=== PATIENT | female | born 1935 | race Caucasian/White ===

== ENCOUNTER 2017-08-08 04:51 | Inpatient (IN) | payer MEDICARE, OTHER ==
[2017-08-08] MEDS ORDERED: Ketorolac 30 MG/ML SDV IVPUSH ONE (05:16)
[2017-08-08] MEDS ORDERED: Ondansetron 4 MG/2 ML SDV IVPUSH ONE (05:16)
[2017-08-08] MEDS ORDERED: Sodium Chloride 0.9% 10 ML Syringe FLUSH PRN (05:16)
[2017-08-08] MEDS ORDERED: Sodium Chloride 0.9% 2.5 ML Syringe FLUSH PRN (05:16)
[2017-08-08] MEDS ORDERED: Pantoprazole 40 MG Vial IVPUSH ONE (05:17)
--- NOTE | 2017-08-08 05:18 | EDM.PDOC ---
ED HPI GENERAL MEDICAL PROBLEM - General Chief Complaint: Gastrointestinal Problem Stated Complaint: VOMITING, FEVER Time Seen by Provider: 08/08/17 05:01 - History of Present Illness INITIAL COMMENTS - FREE TEXT/NARRATIVE: HISTORY AND PHYSICAL: History of present illness: The patient is an 82-year-old female with a history of asthma CHF hypothyroidism hypertension who uses home O2 and presents with family with complaints of mid abdominal pain and dry heaves that started at 4 PM yesterday. The patient says she has no GI problems but did have an esophageal swallow test performed at our hospital on August 23 of this year due to feeling like food was getting stuck and esophageal spasm. The results of that have been reviewed by me and he comments that there is findings consistent with a diffuse esophageal spasm but parts of the tests were suboptimal. The patient follows with Dr. Alonso at [facility] who ordered this test. Patient says that she doesn't have any GI history at her only abdominal surgery is of repair of a rectal prolapse years ago which has since recurred multiple times and she reduces it herself. The patient tells me with respect to this the only time she has to reduce her rectum is when she has dry heaves or vomiting as it "falls out". The patient says that she has not been vomiting up any material just having dry heaves and she did have a bowel movement yesterday which was small in volume and hard in character. She has taken a few sips of water but has not tolerated anything else. She does not feel like the food or water is getting stuck in her throat or esophagus and she has no chest pain or shortness of breath. The patient arrived to our emergency department without her oxygen and initially had a low O2 sat which came up quickly with oxygen therapy. When I query her about this she says she does not feel short of breath or have any respiratory symptoms. The patient also had a fever at some point last evening of which was treated and she is now afebrile. The family member says the only documented the 1 fever one time. The patient takes chronic pain medications for osteoporosis and scoliosis and did take a pain pill before coming here. She took no other medications for her symptomatology. The patient is very vague about her symptoms and says that the pain is in the midabdomen and is deep and she does feel bloated. The patient tells me that she does have a rotund protuberant small abdomen but she does feel a little more distended than usual. Patient says she does feel gassy. Please note the patient did tell me that with the dry heaving she did have prolapse of her rectum and because she felt poorly she was not spending a lot of time trying to reduce it. She currently does not complain of pain at that area. Review of systems: As per history of present illness and below otherwise all systems reviewed and negative. Past medical history: As per history of present illness and as reviewed below otherwise noncontributory. Surgical history: As per history of present illness and as reviewed below otherwise noncontributory. Social history: No reported history of drug or alcohol abuse. Family history: As per history of present illness and as reviewed below otherwise noncontributory. Physical exam: General: Well-developed well-nourished petite female who is nontoxic and vital signs are reviewed by me. She moves easily in the bed and is cooperative with exam HEENT: Atraumatic, normocephalic, pupils reactive, negative for conjunctival pallor or scleral icterus, mucous membranes moist, throat clear, neck supple, nontender, trachea midline. Lungs: Clear to auscultation but there are diminished breath sounds in the bases and no work of breathing stridor or wheezing is appreciated, breath sounds equal bilaterally, chest nontender. Heart: S1S2, regular, negative for clicks, rubs, or JVD. Abdomen: Soft, abdomen is protuberant, which the patient tells me he is only slightly bigger than her baseline, bowel sounds are hyperactive and there is some tympany on percussion and only mild tenderness to palpation of the entire abdomen. Negative for masses or hepatosplenomegaly. There is no rebound or guarding on my exam. In the right inguinal area there is a small protuberance appreciated which the patient says is not tender and she says she has had a hernia there for many years. Pelvis: Stable nontender. Genitourinary: Deferred. Rectal: On examination a small amount of the rectum is prolapsed from the anus and the mucosal surface is somewhat erythematous but not bleeding or weeping. I' m able to almost completely reduce the rectum without difficulty and the patient tolerated this well. Extremities: Atraumatic, negative for cords or calf pain. Neurovascular unremarkable. Neuro: Awake, alert, oriented. Cranial nerves II through XII unremarkable. Cerebellum unremarkable. Motor and sensory unremarkable throughout. Exam nonfocal. Diagnostics: CBC CMP amylase lipase UA urine culture blood cultures lactic acid chest x-ray CT scan of the abdomen and pelvis Therapeutics: Gentle IV fluids Zofran Protonix Toradol I did discuss the CT scan findings with the patient and again asked her about the right inguinal hernia and she says it has not changed nor is it uncomfortable. The case was discussed with our surgeon Dr. Chapa at 8:17 AM and he will do a formal consult and come and see the patient in the ED. I've also told him about the patient's history of rectal prolapse. I will discuss the case with the hospitalist and plan admission to her 0825: Case was discussed with the hospitalist Dr. Evans and Dr. Chapa is also here seeing the patient. He will also evaluate her rectal prolapse. He does not feel that the inguinal hernia is the cause of the problem and he will place a consult on the chart. We will admit the patient as an inpatient. None of the admitting physicians or consulting physicians evident NG tube is indicated at this time. Impression: Abdominal pain and vomiting, possible small bowel obstruction, history of large hiatal hernia and right inguinal hernia Definitive disposition and diagnosis as appropriate pending reevaluation and review of above. abdominal Pain Score (Numeric/FACES): 10 - Related Data Allergies Allergy/AdvReac Type Severity Reaction Status Date / Time azithromycin Allergy Anaphylactic Verified 12/20/14 12:47 Shock codeine Allergy Other Verified 12/31/14 12:34 Home Meds: Home Meds Aspirin 1 tab PO DAILY 12/03/14 [History] Erythromycin Base [Erythromycin 0.5% Ophth Oint] 1 dose EYEBOTH DAILY 12/03/14 [ History] Hydrocodone/Acetaminophen [Vicodin Es 7.5-300 mg Tablet] 1 tab PO QID PRN [History] Levothyroxine 125 mcg PO DAILY 12/03/14 [History] cycloSPORINE [Restasis] 1 dose EYEBOTH DAILY 12/03/14 [History] Fluticasone/Salmeterol [Advair 250-50 Diskus] 1 puff INH BID 12/31/14 [History] Albuterol [Ventolin HFA] 2 puff INH Q4H 08/08/17 [History] Ascorbic Acid [C-1000] 1,000 mg PO 08/08/17 [History] Calcium Carbonate/Vitamin D3 [Calcium 600 + Vit D Tablet] 1 each PO 08/08/17 [ History] Cyanocobalamin (Vitamin B12) [Vitamin B12] 1,000 mcg PO DAILY 08/08/17 [History] Docusate Sodium 100 mg PO 08/08/17 [History] Fish Oil/Gray-3 Fatty Acids [Fish Oil 1,000 MG] 08/08/17 [History] Glucosamine [Glucosamine Sulfate] 500 mg PO 08/08/17 [History] Hydrochlorothiazide 12.5 mg PO 08/08/17 [History] Multivitamin with Minerals [Multiple Vitamin] 08/08/17 [History] Potassium 08/08/17 [History] Verapamil HCl [Verapamil ER] 08/08/17 [History] Zinc Gluconate [Zinc] 08/08/17 [History] Past Medical History HEENT History: Reports: Impaired Vision Other Cardiovascular History: "fast hear rate" Respiratory History: Reports: Asthma, Other (See Below) Other Respiratory History: use oxygen at home Gastrointestinal History: Reports: None APPRENTICE JOCKEY History: Reports: None Musculoskeletal History: Reports: None Neurological History: Reports: None Psychiatric History: Reports: None Hematologic History: Reports: None Dermatologic History: Reports: None - Past Surgical History Other GI Surgeries/Procedures: Rectum Surgery Other Musculoskeletal Surgeries/Procedures:: Left Social & Family History - Family History Family Medical History: Noncontributory - Tobacco Use Second Hand Smoke Exposure: Yes - Recreational Drug Use Recreational Drug Use: No ED ROS GENERAL - Review of Systems Review Of Systems: ROS reveals no pertinent complaints other than HPI. ED EXAM, GENERAL - Physical Exam Exam: See Below (see dictation) Course - Vital Signs Last Recorded V/S: Last Vital Signs Temp 36.8 C 08/08/17 05:00 Pulse 71 08/08/17 07:31 Resp 18 08/08/17 07:31 BP 159/90 H 08/08/17 07:31 Pulse Ox 97 08/08/17 07:31 - Orders/Labs/Meds Orders: Active Orders 24 hr Category Date Time Status Notify Provider Consults [RC] ASDIRECTED Care 08/08/17 08:19 Active Consult to Physician [CONS] Stat Cons 08/08/17 08:19 Active Abdomen Pelvis w Cont [CT] Stat Exams 08/08/17 05:15 Taken Chest 1V Frontal [CR] Stat Exams 08/08/17 05:16 Taken CULTURE BLOOD [BC] Stat Lab 08/08/17 05:22 Received CULTURE BLOOD [BC] Stat Lab 08/08/17 05:34 Received CULTURE URINE [RM] Stat Lab 08/08/17 06:20 Received UA W/MICROSCOPIC [URIN] Stat Lab 08/08/17 06:20 Ordered Sodium Chloride 0.9% [Normal Saline] 1,000 ml Med 08/08/17 05:30 Active IV ASDIRECTED Sodium Chloride 0.9% [Saline Flush] Med 08/08/17 05:16 Active 10 ml FLUSH ASDIRECTED PRN Sodium Chloride 0.9% [Saline Flush] Med 08/08/17 05:16 Active 2.5 ml FLUSH ASDIRECTED PRN Blood Culture x2 Reflex Set [OM.PC] Stat Oth 08/08/17 05:18 Ordered Saline Lock Insert [OM.PC] Stat Oth 08/08/17 05:15 Ordered Medication Orders Sodium Chloride (Normal Saline) 1,000 mls @ 75 mls/hr IV ASDIRECTED JACI Last Admin: 08/08/17 05:22 Dose: 75 mls/hr Sodium Chloride (Saline Flush) 10 ml FLUSH ASDIRECTED PRN PRN Reason: Keep Vein Open Sodium Chloride (Saline Flush) 2.5 ml FLUSH ASDIRECTED PRN PRN Reason: Keep Vein Open Labs: Laboratory Tests 08/08/17 08/08/17 08/08/17 Range/Units 05:22 05:22 05:22 WBC 7.23 (4.0-11.0) K/uL RBC 4.85 (4.30-5.90) M/uL Hgb 14.3 (12.0-16.0) g/dL Hct 43.4 (36.0-46.0) % MCV 89.5 (80.0-98.0) fL MCH 29.5 (27.0-32.0) pg MCHC 32.9 (31.0-37.0) g/dL RDW Std Deviation 47.9 (28.0-62.0) fl RDW Coeff of Ellie 15 (11.0-15.0) % Plt Count 233 (150-400) K/uL MPV 9.20 (7.40-12.00) fL Neut % (Auto) 81.7 H (48.0-80.0) % Lymph % (Auto) 12.2 L (16.0-40.0) % [place] % (Auto) 5.7 (0.0-15.0) % Eos % (Auto) 0.1 (0.0-7.0) % Baso % (Auto) 0.3 (0.0-1.5) % Neut # (Auto) 5.9 H (1.4-5.7) K/uL Lymph # (Auto) 0.9 (0.6-2.4) K/uL [place] # (Auto) 0.4 (0.0-0.8) K/uL Eos # (Auto) 0.0 (0.0-0.7) K/uL Baso # (Auto) 0.0 (0.0-0.1) K/uL Nucleated RBC % 0.0 /100WBC Nucleated RBCs # 0 K/uL Lactate 1.1 (0.20-2.00) mmol/L Sodium 132 L (136-145) mmol/L Potassium 3.8 (3.5-5.1) mmol/L Chloride 97 L (98-107) mmol/L Carbon Dioxide 27.1 (21.0-32.0) mmol/L BUN 20 H (7.0-18.0) mg/dL Creatinine 0.8 (0.6-1.0) mg/dL Est Cr Clr Drug Dosing 34.16 mL/min Estimated GFR (MDRD) > 60.0 ml/min Glucose 137 H (74-106) mg/dL Calcium 8.9 (8.5-10.1) mg/dL Total Bilirubin 0.5 (0.2-1.0) mg/dL AST 29 (15-37) IU/L ALT 19 (14-63) IU/L Alkaline Phosphatase 104 (46-116) U/L Total Protein 7.9 (6.4-8.2) g/dL Albumin 3.3 L (3.4-5.0) g/dL Globulin 4.6 H (2.0-3.5) g/dL Albumin/Globulin Ratio 0.7 L (1.3-2.8) Amylase 66 (25-115) U/L Lipase 51 L (73-393) U/L Urine Color Urine Appearance Urine pH (5.0-8.0) Ur Specific [place] (1.001-1.035) Urine Protein (NEGATIVE) mg/dL Urine Glucose (UA) (NEGATIVE) mg/dL Urine Ketones (NEGATIVE) mg/dL Urine Occult Blood (NEGATIVE) Urine Nitrite (NEGATIVE) Urine Bilirubin (NEGATIVE) Urine Urobilinogen (<2.0) EU/dL Ur Leukocyte Esterase (NEGATIVE) Urine RBC (0-2/HPF) Urine WBC (0-5/HPF) Ur Epithelial Cells (NONE-FEW) Urine Bacteria (NEGATIVE) 08/08/17 Range/Units 06:20 WBC (4.0-11.0) K/uL RBC (4.30-5.90) M/uL Hgb (12.0-16.0) g/dL Hct (36.0-46.0) % MCV (80.0-98.0) fL MCH (27.0-32.0) pg MCHC (31.0-37.0) g/dL RDW Std Deviation (28.0-62.0) fl RDW Coeff of Ellie (11.0-15.0) % Plt Count (150-400) K/uL MPV (7.40-12.00) fL Neut % (Auto) (48.0-80.0) % Lymph % (Auto) (16.0-40.0) % [place] % (Auto) (0.0-15.0) % Eos % (Auto) (0.0-7.0) % Baso % (Auto) (0.0-1.5) % Neut # (Auto) (1.4-5.7) K/uL Lymph # (Auto) (0.6-2.4) K/uL [place] # (Auto) (0.0-0.8) K/uL Eos # (Auto) (0.0-0.7) K/uL Baso # (Auto) (0.0-0.1) K/uL Nucleated RBC % /100WBC Nucleated RBCs # K/uL Lactate (0.20-2.00) mmol/L Sodium (136-145) mmol/L Potassium (3.5-5.1) mmol/L Chloride (98-107) mmol/L Carbon Dioxide (21.0-32.0) mmol/L BUN (7.0-18.0) mg/dL Creatinine (0.6-1.0) mg/dL Est Cr Clr Drug Dosing mL/min Estimated GFR (MDRD) ml/min Glucose (74-106) mg/dL Calcium (8.5-10.1) mg/dL Total Bilirubin (0.2-1.0) mg/dL AST (15-37) IU/L ALT (14-63) IU/L Alkaline Phosphatase (46-116) U/L Total Protein (6.4-8.2) g/dL Albumin (3.4-5.0) g/dL Globulin (2.0-3.5) g/dL Albumin/Globulin Ratio (1.3-2.8) Amylase (25-115) U/L Lipase (73-393) U/L Urine Color YELLOW Urine Appearance CLEAR Urine pH 6.5 (5.0-8.0) Ur Specific [place] 1.025 (1.001-1.035) Urine Protein 100 (NEGATIVE) mg/dL Urine Glucose (UA) NEGATIVE (NEGATIVE) mg/dL Urine Ketones 40 H (NEGATIVE) mg/dL Urine Occult Blood SMALL H (NEGATIVE) Urine Nitrite NEGATIVE (NEGATIVE) Urine Bilirubin NEGATIVE (NEGATIVE) Urine Urobilinogen 0.2 (<2.0) EU/dL Ur Leukocyte Esterase NEGATIVE (NEGATIVE) Urine RBC 0-2 (0-2/HPF) Urine WBC 0-1 (0-5/HPF) Ur Epithelial Cells RARE (NONE-FEW) Urine Bacteria RARE (NEGATIVE) Meds: Medications Generic Name Dose Route Start Last Admin Trade Name Freq PRN Reason Stop Dose Admin Sodium Chloride 1,000 mls @ 75 mls/hr 08/08/17 05:30 08/08/17 05:22 Normal Saline IV 75 mls/hr ASDIRECTED JACI Administration Sodium Chloride 10 ml 08/08/17 05:16 Saline Flush FLUSH ASDIRECTED PRN Keep Vein Open Sodium Chloride 2.5 ml 08/08/17 05:16 Saline Flush FLUSH ASDIRECTED PRN Keep Vein Open Discontinued Medications Generic Name Dose Route Start Last Admin Trade Name Freq PRN Reason Stop Dose Admin Iopamidol 60 ml 08/08/17 07:28 08/08/17 07:37 Isovue-370 (76%) IVPUSH 08/08/17 07:29 60 ml ONETIME STA Administration Ketorolac Tromethamine 15 mg 08/08/17 05:16 08/08/17 05:26 Toradol IVPUSH 08/08/17 05:17 15 mg ONETIME ONE Administration Ondansetron HCl 4 mg 08/08/17 05:16 08/08/17 05:26 Zofran IVPUSH 08/08/17 05:17 4 mg ONETIME ONE Administration Pantoprazole Sodium 40 mg 08/08/17 05:17 08/08/17 05:26 Protonix Iv IVPUSH 08/08/17 05:18 40 mg NOW ONE Administration Departure - Departure Time of Disposition: 08:42 Disposition: Admitted As Inpatient 66 Condition: Good Clinical Impression: Bowel obstruction Qualifiers: Intestinal obstruction type: unspecified Intestinal obstruction extent: partial Qualified Code(s): K56.600 - Partial intestinal obstruction, unspecified as to cause - Discharge Information Referrals: Natalia Alonso DO [Primary Care Provider] - Forms: ED Department Discharge - My Orders Last 24 Hours: My Active Orders 08/08/17 05:15 Abdomen Pelvis w Cont [CT] Stat Saline Lock Insert [OM.PC] Stat 08/08/17 05:16 Chest 1V Frontal [CR] Stat Sodium Chloride 0.9% [Saline Flush] 10 ml FLUSH ASDIRECTED PRN Sodium Chloride 0.9% [Saline Flush] 2.5 ml FLUSH ASDIRECTED PRN 08/08/17 05:18 Blood Culture x2 Reflex Set [OM.PC] Stat 08/08/17 05:22 CULTURE BLOOD [BC] Stat 08/08/17 05:30 Sodium Chloride 0.9% [Normal Saline] 1,000 ml IV ASDIRECTED 08/08/17 05:34 CULTURE BLOOD [BC] Stat 08/08/17 06:20 CULTURE URINE [RM] Stat UA W/MICROSCOPIC [URIN] Stat 08/08/17 08:19 Notify Provider Consults [RC] ASDIRECTED Consult to Physician [CONS] Stat - Assessment/Plan Last 24 Hours: My Active Orders 08/08/17 05:15 Abdomen Pelvis w Cont [CT] Stat Saline Lock Insert [OM.PC] Stat 08/08/17 05:16 Chest 1V Frontal [CR] Stat Sodium Chloride 0.9% [Saline Flush] 10 ml FLUSH ASDIRECTED PRN Sodium Chloride 0.9% [Saline Flush] 2.5 ml FLUSH ASDIRECTED PRN 08/08/17 05:18 Blood Culture x2 Reflex Set [OM.PC] Stat 08/08/17 05:22 CULTURE BLOOD [BC] Stat 08/08/17 05:30 Sodium Chloride 0.9% [Normal Saline] 1,000 ml IV ASDIRECTED 08/08/17 05:34 CULTURE BLOOD [BC] Stat 08/08/17 06:20 CULTURE URINE [RM] Stat UA W/MICROSCOPIC [URIN] Stat 08/08/17 08:19 Notify Provider Consults [RC] ASDIRECTED Consult to Physician [CONS] Stat
[2017-08-08] MEDS ORDERED: Sodium Chloride 0.9% 1,000 ML IV SCH (05:30)
[2017-08-08 06:00] LABS: CHLORIDE,CL 97 mmol/L (98-107); SODIUM,NA 132 mmol/L (136-145)
[2017-08-08] MEDS ORDERED: Iopamidol 755 Mg/ML 100 ML Bottle IVPUSH STA (07:28)
--- NOTE | 2017-08-08 09:10 | PCM.CONS ---
H&P History of Present Illness - General Date of Service: 08/08/17 Admit Problem/Dx: Admission Diagnosis/Problem Admission Diagnosis/Problem dry heaves with abdominal Source of Information: Patient History Limitations: Reports: No Limitations - History of Present Illness Initial Comments - Free Text/Narative: Patient is an 82-year-old female who presented to the emergency room earlier today complaining of some abdominal pain with dry heaves. She states this started yesterday about 4:00 and has persisted through the night. She has been nauseated. She has not been eating, so there has been nothing to come out of her stomach. Past history is significant for a very large hiatal hernia with much of her stomach in the thoracic cavity. She also has a long-standing rectal prolapse, that was apparently operated on in the past. This comes out whenever she is nauseated or throws up. No unexplained weight loss. No bloody diarrhea. Symptom Onset Date: 08/07/17 Symptom Onset Time: 16:00 Duration of Symptoms: Reports: Hour(s):, Heavy Location: Reports: Abdomen Quality: Reports: Pressure Improves with: Reports: Rest Worsens with: Reports: None Context: Reports: Sick Contact Associated Symptoms: Reports: Nausea/Vomiting (dry heaves) abdominal Pain Score (Numeric/FACES): 10 - Related Data Allergies/Adverse Reactions: Allergies Allergy/AdvReac Type Severity Reaction Status Date / Time azithromycin Allergy Anaphylactic Verified 12/20/14 12:47 Shock codeine Allergy Other Verified 12/31/14 12:34 Home Medications: Home Meds Aspirin 1 tab PO DAILY 12/03/14 [History] Erythromycin Base [Erythromycin 0.5% Ophth Oint] 1 dose EYEBOTH DAILY 12/03/14 [ History] Hydrocodone/Acetaminophen [Vicodin Es 7.5-300 mg Tablet] 1 tab PO QID PRN [History] Levothyroxine 125 mcg PO DAILY 12/03/14 [History] cycloSPORINE [Restasis] 1 dose EYEBOTH DAILY 12/03/14 [History] Fluticasone/Salmeterol [Advair 250-50 Diskus] 1 puff INH BID 12/31/14 [History] Albuterol [Ventolin HFA] 2 puff INH Q4H 08/08/17 [History] Ascorbic Acid [C-1000] 1,000 mg PO 08/08/17 [History] Calcium Carbonate/Vitamin D3 [Calcium 600 + Vit D Tablet] 1 each PO 08/08/17 [ History] Cyanocobalamin (Vitamin B12) [Vitamin B12] 1,000 mcg PO DAILY 08/08/17 [History] Docusate Sodium 100 mg PO 08/08/17 [History] Fish Oil/[place]-3 Fatty Acids [Fish Oil 1,000 MG] 08/08/17 [History] Glucosamine [Glucosamine Sulfate] 500 mg PO 08/08/17 [History] Hydrochlorothiazide 12.5 mg PO 08/08/17 [History] Multivitamin with Minerals [Multiple Vitamin] 08/08/17 [History] Potassium 08/08/17 [History] Verapamil HCl [Verapamil ER] 08/08/17 [History] Zinc Gluconate [Zinc] 08/08/17 [History] Past Medical History HEENT History: Reports: Impaired Vision Other Cardiovascular History: "fast hear rate" Respiratory History: Reports: Asthma, Other (See Below) Other Respiratory History: use oxygen at home Gastrointestinal History: Reports: None CLINICAL MOLECULAR GENETICIST History: Reports: None Musculoskeletal History: Reports: None Neurological History: Reports: None Psychiatric History: Reports: None Hematologic History: Reports: None Dermatologic History: Reports: None - Past Surgical History Other GI Surgeries/Procedures: Rectum Surgery Other Musculoskeletal Surgeries/Procedures:: Left Social & Family History - Family History Family Medical History: Noncontributory - Tobacco Use Second Hand Smoke Exposure: Yes - Recreational Drug Use Recreational Drug Use: No H&P Review of Systems - Review of Systems: Review Of Systems: See Below General: Denies: Fever, Chills, Diaphoresis, Decreased Appetite, Weight Loss HEENT: Reports: No Symptoms Pulmonary: Reports: Shortness of Breath (Chronically short of breath. Oxygen dependent COPD. ). Denies: Cough, Sputum, Hemoptysis Cardiovascular: Denies: Chest Pain, Palpitations Gastrointestinal: Reports: Abdominal Pain, Bloody Stool (Related to prolapse), Constipation, Distension, Flatus, Nausea, Vomiting (dry heaves). Denies: Anorexia, Black Stool, Diarrhea, Hematemesis, Hematochezia, Melena Genitourinary: Denies: Dysuria, Frequency, Burning Musculoskeletal: Reports: No Symptoms Skin: Denies: Cyanosis, Jaundice, Pallor, Diaphoresis Psychiatric: Denies: Confusion, Depression, Mood Lability, Anxiety Neurological: Denies: Confusion, Dizziness Hematologic/Lymphatic: Denies: Anemia, Easy Bleeding, Easy Bruising Immunologic: Reports: No Symptoms Exam - Exam Exam: See Below - Vital Signs Vital Signs: Last Vital Signs Temp 98.0 F 08/08/17 09:04 Pulse 76 08/08/17 09:04 Resp 16 08/08/17 09:04 BP 168/81 H 08/08/17 09:04 Pulse Ox 98 08/08/17 09:04 Weight: 88 lb - Exam Quality Assessment: Supplemental Oxygen General: Alert, Oriented, Cooperative, Mild Distress HEENT: Conjunctiva Clear, EACs Clear. No: Scleral Icterus Neck: Supple, Trachea Midline Lungs: Clear to Auscultation, Normal Respiratory Effort, Decreased Breath Sounds (distant) Cardiovascular: Regular Rate, Regular Rhythm. 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 It doesn't bother her.). No: Guarding, Rigid, Rebound (Female) Exam: Deferred Rectal (Female) Exam: Other (Patient does have a rectal prolapse. This was reduced earlier but has recurred. There is a bloody mucousy discharge.) Back Exam: Other (scoliosis.) Extremities: Normal Inspection Peripheral Pulses: 3+: Posterior Tibial (L), Posterior Tibial (R), Dorsalis Pedis (L), Dorsalis Pedis (R) Skin: Warm, Dry, Intact Neuro Extensive - Mental Status: Alert, Oriented x3, Normal Mood/Affect, Normal Cognition Psychiatric: Alert, Normal Affect, Normal Mood - Patient Data Lab Results Last 24 hrs: Laboratory Results - last 24 hr 08/08/17 08/08/17 08/08/17 Range/Units 05:22 05:22 05:22 WBC 7.23 (4.0-11.0) K/uL RBC 4.85 (4.30-5.90) M/uL Hgb 14.3 (12.0-16.0) g/dL Hct 43.4 (36.0-46.0) % MCV 89.5 (80.0-98.0) fL MCH 29.5 (27.0-32.0) pg MCHC 32.9 (31.0-37.0) g/dL RDW Std Deviation 47.9 (28.0-62.0) fl RDW Coeff of Ellie 15 (11.0-15.0) % Plt Count 233 (150-400) K/uL MPV 9.20 (7.40-12.00) fL Neut % (Auto) 81.7 H (48.0-80.0) % Lymph % (Auto) 12.2 L (16.0-40.0) % [place] % (Auto) 5.7 (0.0-15.0) % Eos % (Auto) 0.1 (0.0-7.0) % Baso % (Auto) 0.3 (0.0-1.5) % Neut # (Auto) 5.9 H (1.4-5.7) K/uL Lymph # (Auto) 0.9 (0.6-2.4) K/uL [place] # (Auto) 0.4 (0.0-0.8) K/uL Eos # (Auto) 0.0 (0.0-0.7) K/uL Baso # (Auto) 0.0 (0.0-0.1) K/uL Nucleated RBC % 0.0 /100WBC Nucleated RBCs # 0 K/uL Lactate 1.1 (0.20-2.00) mmol/L Sodium 132 L (136-145) mmol/L Potassium 3.8 (3.5-5.1) mmol/L Chloride 97 L (98-107) mmol/L Carbon Dioxide 27.1 (21.0-32.0) mmol/L BUN 20 H (7.0-18.0) mg/dL Creatinine 0.8 (0.6-1.0) mg/dL Est Cr Clr Drug Dosing 34.16 mL/min Estimated GFR (MDRD) > 60.0 ml/min Glucose 137 H (74-106) mg/dL Calcium 8.9 (8.5-10.1) mg/dL Total Bilirubin 0.5 (0.2-1.0) mg/dL AST 29 (15-37) IU/L ALT 19 (14-63) IU/L Alkaline Phosphatase 104 (46-116) U/L Total Protein 7.9 (6.4-8.2) g/dL Albumin 3.3 L (3.4-5.0) g/dL Globulin 4.6 H (2.0-3.5) g/dL Albumin/Globulin Ratio 0.7 L (1.3-2.8) Amylase 66 (25-115) U/L Lipase 51 L (73-393) U/L Urine Color Urine Appearance Urine pH (5.0-8.0) Ur Specific [place] (1.001-1.035) Urine Protein (NEGATIVE) mg/dL Urine Glucose (UA) (NEGATIVE) mg/dL Urine Ketones (NEGATIVE) mg/dL Urine Occult Blood (NEGATIVE) Urine Nitrite (NEGATIVE) Urine Bilirubin (NEGATIVE) Urine Urobilinogen (<2.0) EU/dL Ur Leukocyte Esterase (NEGATIVE) Urine RBC (0-2/HPF) Urine WBC (0-5/HPF) Ur Epithelial Cells (NONE-FEW) Urine Bacteria (NEGATIVE) 08/08/17 Range/Units 06:20 WBC (4.0-11.0) K/uL RBC (4.30-5.90) M/uL Hgb (12.0-16.0) g/dL Hct (36.0-46.0) % MCV (80.0-98.0) fL MCH (27.0-32.0) pg MCHC (31.0-37.0) g/dL RDW Std Deviation (28.0-62.0) fl RDW Coeff of Ellie (11.0-15.0) % Plt Count (150-400) K/uL MPV (7.40-12.00) fL Neut % (Auto) (48.0-80.0) % Lymph % (Auto) (16.0-40.0) % [place] % (Auto) (0.0-15.0) % Eos % (Auto) (0.0-7.0) % Baso % (Auto) (0.0-1.5) % Neut # (Auto) (1.4-5.7) K/uL Lymph # (Auto) (0.6-2.4) K/uL [place] # (Auto) (0.0-0.8) K/uL Eos # (Auto) (0.0-0.7) K/uL Baso # (Auto) (0.0-0.1) K/uL Nucleated RBC % /100WBC Nucleated RBCs # K/uL Lactate (0.20-2.00) mmol/L Sodium (136-145) mmol/L Potassium (3.5-5.1) mmol/L Chloride (98-107) mmol/L Carbon Dioxide (21.0-32.0) mmol/L BUN (7.0-18.0) mg/dL Creatinine (0.6-1.0) mg/dL Est Cr Clr Drug Dosing mL/min Estimated GFR (MDRD) ml/min Glucose (74-106) mg/dL Calcium (8.5-10.1) mg/dL Total Bilirubin (0.2-1.0) mg/dL AST (15-37) IU/L ALT (14-63) IU/L Alkaline Phosphatase (46-116) U/L Total Protein (6.4-8.2) g/dL Albumin (3.4-5.0) g/dL Globulin (2.0-3.5) g/dL Albumin/Globulin Ratio (1.3-2.8) Amylase (25-115) U/L Lipase (73-393) U/L Urine Color YELLOW Urine Appearance CLEAR Urine pH 6.5 (5.0-8.0) Ur Specific [place] 1.025 (1.001-1.035) Urine Protein 100 (NEGATIVE) mg/dL Urine Glucose (UA) NEGATIVE (NEGATIVE) mg/dL Urine Ketones 40 H (NEGATIVE) mg/dL Urine Occult Blood SMALL H (NEGATIVE) Urine Nitrite NEGATIVE (NEGATIVE) Urine Bilirubin NEGATIVE (NEGATIVE) Urine Urobilinogen 0.2 (<2.0) EU/dL Ur Leukocyte Esterase NEGATIVE (NEGATIVE) Urine RBC 0-2 (0-2/HPF) Urine WBC 0-1 (0-5/HPF) Ur Epithelial Cells RARE (NONE-FEW) Urine Bacteria RARE (NEGATIVE) Result Diagrams: 08/08/17 05:22 08/08/17 05:22 Consult PN Assessment/Plan Procedures: Procedures ASSAY OF AMYLASE (12/31/14) ASSAY OF CK (CPK) (12/31/14) ASSAY OF LIPASE (12/31/14) ASSAY OF NATRIURETIC PEPTIDE (12/31/14) ASSAY OF TROPONIN QUANT (12/31/14) BLOOD CULTURE FOR BACTERIA (12/31/14) CHEST X-RAY 1 VIEW FRONTAL (12/31/14) COMPLETE CBC W/AUTO DIFF WBC (12/31/14) COMPREHEN METABOLIC PANEL (12/31/14) CONTRAST X-RAY ESOPHAGUS (03/25/17) CREATINE MB FRACTION (12/31/14) CT CHEST SPINE W/O DYE (05/20/14) CT LUMBAR SPINE W/O DYE (05/20/14) CULTURE AEROBIC IDENTIFY (12/31/14) CULTURE OTHR SPECIMN AEROBIC (12/03/14) EMERGENCY DEPT VISIT (12/31/14) EMERGENCY DEPT VISIT (12/20/14) EMERGENCY DEPT VISIT (12/03/14) EXTREMITY STUDY (12/20/14) MICROBE SUSCEPTIBLE CHIVO (12/31/14) OFFICE/OUTPATIENT VISIT EST (02/03/14) ROUTINE VENIPUNCTURE (12/31/14) THER/PROPH/DIAG INJ SC/IM (12/31/14) THER/PROPH/DIAG IV INF INIT (12/31/14) TX/PRO/DX INJ NEW DRUG ADDON (12/31/14) URINALYSIS AUTO W/SCOPE (12/31/14) URINE CULTURE/COLONY COUNT (12/31/14) X-RAY EXAM OF LOWER LEG (12/03/14) (1) Nausea & vomiting SNOMED Code(s): 46035157 Code(s): R11.2 - NAUSEA WITH VOMITING, UNSPECIFIED Priority: High Current Visit: Yes Qualifiers: Vomiting type: unspecified Vomiting Intractability: non-intractable Qualified Code(s): R11.2 - Nausea with vomiting, unspecified (2) Abdominal distension SNOMED Code(s): 62564070 Code(s): R14.0 - ABDOMINAL DISTENSION (GASEOUS) Priority: Medium Current Visit: Yes (3) Rectal prolapse SNOMED Code(s): 91439114 Code(s): K62.3 - RECTAL PROLAPSE Priority: Medium Current Visit: Yes (4) Right groin mass SNOMED Code(s): 256796813 Code(s): R19.09 - OTHER INTRA-ABDOMINAL AND PELVIC SWELLING, MASS AND LUMP Priority: Medium Current Visit: Yes (5) COPD (chronic obstructive pulmonary disease) SNOMED Code(s): 05588227 Code(s): J44.9 - CHRONIC OBSTRUCTIVE PULMONARY DISEASE, UNSPECIFIED Priority: High Current Visit: Yes (6) Hypoxia SNOMED Code(s): 891951412 Code(s): R09.02 - HYPOXEMIA Priority: Medium Current Visit: No (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 Patient hasn't had a good BM for several days. This is in part related to her analgesic use for her back and hip. She is not a candidate for surgery here secondary to her underlying pulmonary disease and large hiatal hernia.
[2017-08-08] MEDS: Enoxaparin 40 MG/0.4 ML Syringe SUBCUT SCH (11:28)
[2017-08-08] MEDS: Albuterol 8 GM Inhaler INH SCH ×2 (11:29→15:37)
[2017-08-08] MEDS: Polyethylene Glycol 3350 Powder 17 GM Packet PO PRN (11:43)
[2017-08-08] MEDS: Acetaminophen 1,000 MG in Premix Bag 1 BAG IV PRN ×2 (11:55→18:40)
--- NOTE | 2017-08-08 13:17 | CR ---
EXAM DATE: 08/08/17 PATIENT'S AGE: 82 Patient: NAMAN GRADY Facility: [place], [place] Site . Site : 1935 Study: XRay Chest [id number]/24/[id number] 6:54:50 AM Ordering Physician: Arielle Klein Final Report: INDICATION: Short of breath. TECHNIQUE: Single-view chest. IMPRESSION: Retrocardiac hiatal hernia. Severe scoliosis. Surgical clips projecting over the right chest wall. No pneumothorax. No significant pleural effusion. Lungs are clear with no pulmonary consolidation. Dictated by Grzegorz Grant MD @ Aug 08 2017 7:30AM (Electronic Signature) Report Signed by Proxy. FUNMI
--- NOTE | 2017-08-08 13:18 | CT ---
EXAM DATE: 08/08/17 PATIENT'S AGE: 82 Patient: NAMAN GRADY Facility: [place], [place] Site . Site : 1935 Study: CT Abdomen/Pelvis [id number]/24/2018 7:02:37 AM Ordering Physician: Arielle Klein Final Report: INDICATION: Abdominal pain and nausea. TECHNIQUE: CT scan of the abdomen pelvis. IV contrast. FINDINGS: Lung bases: Severe panlobular emphysema. Large retrocardiac hiatal hernia. Coronary artery calcification. Liver: No mass lesion. Pancreas: Cystic lesion in the neck of the pancreas 9 mm. Series 201, image 36. This may connect to the pancreas duct. Additional lesion in the anterior head of the pancreas measuring 8 mm on image 47. The liver and spleen: No mass. Gallbladder: Tiny calcification in the neck of the gallbladder. Kidneys: Small cysts. No mass lesions. No hydronephrosis. GI tract: Fluid-filled dilated small bowel in the pelvis. Large amount of colonic stool. Rotation of the vessels in the central mesentery of the small bowel. The duodenum is decompressed. Almost all the stomach is herniated into the thorax. Marked paucity of intra-abdominal fat and mesenteric fat. Some probable decompressed loops of small bowel are present in the right lower quadrant. These are very difficult to evaluate. A fluid containing structure is present in the anterior right inguinal region. This is not associated with the inguinal canal however cannot exclude some fluid within a hernia at this level. The hernia appears to be lateral to the inguinal canal and medial to the femoral vein. The relationship to the inferior epigastric artery is difficult to evaluate. Retroperitoneum / aorta: Atherosclerosis. No aneurysm or adenopathy. Pelvis: Small trace of free fluid. The bladder is normal. Skeletal: Severe double convex scoliosis. Curvature convex to the left. Miscellaneous: Soft tissue gluteal calcification. IMPRESSION: 1. Possible small-bowel obstruction. There is a possible hernia possibly a femoral hernia in the right inguinal region, containing some fluid but some adjacent decompressed small bowel loops are present in the right lower quadrant. This is very difficult to evaluate due to marked paucity of mesenteric and abdominal fat. Correlate with physical exam. Surgical consultation is suggested. No free air. 2. Incidental cystic lesions in the pancreas which could represent previous pseudocysts or small side branch IPMN. Follow-up can be considered. 3. Large retrocardiac hiatal hernia and incidental small gallstones. 4. Pulmonary emphysema. Please note that all CT scans at this facility use dose modulation, iterative reconstruction, and/or weight-based dosing when appropriate to reduce radiation dose to as low as reasonably achievable. Dictated by Grzegorz Grant MD @ Aug 08 2017 7:54AM (Electronic Signature) Report Signed by Proxy. [facility]
[2017-08-08] MEDS: Lactated Ringers 1,000 ML IV SCH (14:55)
[2017-08-08] MEDS ORDERED: Ondansetron 4 MG/2 ML SDV IVPUSH PRN (15:45)
[2017-08-08] MEDS: Metoclopramide 10 MG/2 ML SDV IVPUSH PRN (15:53)
[2017-08-08] MEDS ORDERED: Docusate Sodium 100 MG Cap PO PRN (16:59)
[2017-08-08] MEDS ORDERED: Labetalol 20 MG/4 ML Syringe IVPUSH ONE (17:00)
[2017-08-08] MEDS ORDERED: Magnesium Hydroxide 400 MG/5 ML Susp 30 ML Cup PO PRN ×2 (17:05→17:30)
[2017-08-08] MEDS ORDERED: Albuterol 8 GM Inhaler INH PRN (17:55)
--- NOTE | 2017-08-08 18:40 | PCM.HP ---
H&P History of Present Illness - General Date of Service: 08/08/17 Admit Problem/Dx: Admission Diagnosis/Problem Admission Diagnosis/Problem dry heaves with abdominal pain Source of Information: Patient History Limitations: Reports: No Limitations - History of Present Illness Initial Comments - Free Text/Narative: Patient 82 y old female presented to hospital due to dry heaves that started yesterday afternoon around 4 pm associated with mid abdominal pain , moderate to severe, cramping like. Patient has history of rectal prolapse s/p repair and when she had heaves her rectum prolapsed. She usually try to push it back with her hand. Ct done in ER showed findings consistent with possible small bowel obstruction and large amount of stool in the colon, rt femoral hernia, pancreatic cyst, large retrocardiac hernia. pulmonary emphysema.Patient had surgery consult and surgery recommended patient to have gentle bowel preparation. Onset of Symptoms: Reports: Gradual Duration of Symptoms: Reports: Day(s): Location: Reports: Abdomen abdominal Pain Score (Numeric/FACES): 7 - Related Data Allergies/Adverse Reactions: Allergies Allergy/AdvReac Type Severity Reaction Status Date / Time azithromycin Allergy Anaphylactic Verified 12/20/14 12:47 Shock codeine Allergy Other Verified 12/31/14 12:34 Home Medications: Home Meds Aspirin 1 tab PO DAILY 12/03/14 [History] Erythromycin Base [Erythromycin 0.5% Ophth Oint] 1 dose EYEBOTH DAILY 12/03/14 [ History] Hydrocodone/Acetaminophen [Vicodin Es 7.5-300 mg Tablet] 1 tab PO QID PRN [History] Levothyroxine 125 mcg PO DAILY 12/03/14 [History] cycloSPORINE [Restasis] 1 dose EYEBOTH DAILY 12/03/14 [History] Fluticasone/Salmeterol [Advair 250-50 Diskus] 1 puff INH BID 12/31/14 [History] Albuterol [Ventolin HFA] 2 puff INH Q4H 08/08/17 [History] Ascorbic Acid [C-1000] 1,000 mg PO DAILY 08/08/17 [History] Calcium Carbonate/Vitamin D3 [Calcium 600 + Vit D Tablet] 1 each PO DAILY [History] Cyanocobalamin (Vitamin B12) [Vitamin B12] 1,000 mcg PO DAILY 08/08/17 [History] Diltiazem HCl [Cardizem] 60 mg PO QID 08/08/17 [History] Docusate Sodium 100 mg PO BID PRN 08/08/17 [History] Fish Oil/[place]-3 Fatty Acids [Fish Oil 1,000 MG] 1 cap PO DAILY 08/08/17 [ History] Glucosamine [Glucosamine Sulfate] 500 mg PO DAILY 08/08/17 [History] Hydrochlorothiazide 12.5 mg PO DAILY 08/08/17 [History] Multivitamin with Minerals [Multiple Vitamin] 1 tab PO DAILY 08/08/17 [History] Potassium 08/08/17 [History] Verapamil HCl [Verapamil ER] 08/08/17 [History] Zinc Gluconate [Zinc] 08/08/17 [History] Past Medical History HEENT History: Reports: Impaired Vision Other Cardiovascular History: "fast hear rate" Respiratory History: Reports: Asthma, Other (See Below) Other Respiratory History: use oxygen at home Gastrointestinal History: Reports: None SLEEVE TAILOR History: Reports: None Musculoskeletal History: Reports: None Neurological History: Reports: None Psychiatric History: Reports: None Hematologic History: Reports: None Dermatologic History: Reports: None - Past Surgical History Other GI Surgeries/Procedures: Rectum Surgery Other Musculoskeletal Surgeries/Procedures:: Left Social & Family History - Family History Family Medical History: Noncontributory - Tobacco Use Smoking Status *Q: Former Smoker Used Tobacco, but Quit: Yes Month/Year Tobacco Last Used: quitted 16 yrs ago Second Hand Smoke Exposure: Yes - Caffeine Use Caffeine Use: Reports: None - Recreational Drug Use Recreational Drug Use: No H&P Review of Systems - Review of Systems: Review Of Systems: See Below General: Reports: No Symptoms HEENT: Reports: No Symptoms Pulmonary: Reports: No Symptoms Cardiovascular: Reports: No Symptoms Gastrointestinal: Reports: Abdominal Pain, Distension, Nausea. Denies: Vomiting Musculoskeletal: Reports: No Symptoms Skin: Reports: No Symptoms Psychiatric: Reports: No Symptoms Neurological: Reports: No Symptoms Hematologic/Lymphatic: Reports: No Symptoms Immunologic: Reports: No Symptoms Exam - Exam Exam: See Below - Vital Signs Vital Signs: Last Vital Signs Temp 96.8 F 08/08/17 16:00 Pulse 62 08/08/17 18:15 Resp 18 08/08/17 16:00 BP 134/68 08/08/17 18:15 Pulse Ox 91 L 08/08/17 16:00 Weight: 90 lb 6.232 oz - Exam General: Alert, Oriented, Cooperative HEENT: Conjunctiva Clear Neck: Supple, Trachea Midline Lungs: Clear to Auscultation, Normal Respiratory Effort Cardiovascular: Regular Rate, Regular Rhythm, Normal S1, Normal S2 GI/Abdominal Exam: Normal Bowel Sounds, Soft, Non-Tender, No Organomegaly, Hernia (femoral hernia right), Other Rectal (Female) Exam: Mass (rectal prolapse the size of an egg) Back Exam: Normal Inspection Extremities: Normal Inspection Skin: Warm, Dry Neurological: Cranial Nerves Intact Neuro Extensive - Mental Status: Alert, Oriented x3 Neuro Extensive - Motor, Sensory, Reflexes: CN II-XII Intact Psychiatric: Alert, Normal Affect, Normal Mood - Patient Data Lab Results Last 24 hrs: Laboratory Results - last 24 hr 08/08/17 08/08/17 08/08/17 Range/Units 05:22 05:22 05:22 WBC 7.23 (4.0-11.0) K/uL RBC 4.85 (4.30-5.90) M/uL Hgb 14.3 (12.0-16.0) g/dL Hct 43.4 (36.0-46.0) % MCV 89.5 (80.0-98.0) fL MCH 29.5 (27.0-32.0) pg MCHC 32.9 (31.0-37.0) g/dL RDW Std Deviation 47.9 (28.0-62.0) fl RDW Coeff of Ellie 15 (11.0-15.0) % Plt Count 233 (150-400) K/uL MPV 9.20 (7.40-12.00) fL Neut % (Auto) 81.7 H (48.0-80.0) % Lymph % (Auto) 12.2 L (16.0-40.0) % [place] % (Auto) 5.7 (0.0-15.0) % Eos % (Auto) 0.1 (0.0-7.0) % Baso % (Auto) 0.3 (0.0-1.5) % Neut # (Auto) 5.9 H (1.4-5.7) K/uL Lymph # (Auto) 0.9 (0.6-2.4) K/uL [place] # (Auto) 0.4 (0.0-0.8) K/uL Eos # (Auto) 0.0 (0.0-0.7) K/uL Baso # (Auto) 0.0 (0.0-0.1) K/uL Nucleated RBC % 0.0 /100WBC Nucleated RBCs # 0 K/uL Lactate 1.1 (0.20-2.00) mmol/L Sodium 132 L (136-145) mmol/L Potassium 3.8 (3.5-5.1) mmol/L Chloride 97 L (98-107) mmol/L Carbon Dioxide 27.1 (21.0-32.0) mmol/L BUN 20 H (7.0-18.0) mg/dL Creatinine 0.8 (0.6-1.0) mg/dL Est Cr Clr Drug Dosing 34.16 mL/min Estimated GFR (MDRD) > 60.0 ml/min Glucose 137 H (74-106) mg/dL Calcium 8.9 (8.5-10.1) mg/dL Total Bilirubin 0.5 (0.2-1.0) mg/dL AST 29 (15-37) IU/L ALT 19 (14-63) IU/L Alkaline Phosphatase 104 (46-116) U/L Total Protein 7.9 (6.4-8.2) g/dL Albumin 3.3 L (3.4-5.0) g/dL Globulin 4.6 H (2.0-3.5) g/dL Albumin/Globulin Ratio 0.7 L (1.3-2.8) Amylase 66 (25-115) U/L Lipase 51 L (73-393) U/L Urine Color Urine Appearance Urine pH (5.0-8.0) Ur Specific Beauty (1.001-1.035) Urine Protein (NEGATIVE) mg/dL Urine Glucose (UA) (NEGATIVE) mg/dL Urine Ketones (NEGATIVE) mg/dL Urine Occult Blood (NEGATIVE) Urine Nitrite (NEGATIVE) Urine Bilirubin (NEGATIVE) Urine Urobilinogen (<2.0) EU/dL Ur Leukocyte Esterase (NEGATIVE) Urine RBC (0-2/HPF) Urine WBC (0-5/HPF) Ur Epithelial Cells (NONE-FEW) Urine Bacteria (NEGATIVE) 08/08/17 Range/Units 06:20 WBC (4.0-11.0) K/uL RBC (4.30-5.90) M/uL Hgb (12.0-16.0) g/dL Hct (36.0-46.0) % MCV (80.0-98.0) fL MCH (27.0-32.0) pg MCHC (31.0-37.0) g/dL RDW Std Deviation (28.0-62.0) fl RDW Coeff of Ellie (11.0-15.0) % Plt Count (150-400) K/uL MPV (7.40-12.00) fL Neut % (Auto) (48.0-80.0) % Lymph % (Auto) (16.0-40.0) % [place] % (Auto) (0.0-15.0) % Eos % (Auto) (0.0-7.0) % Baso % (Auto) (0.0-1.5) % Neut # (Auto) (1.4-5.7) K/uL Lymph # (Auto) (0.6-2.4) K/uL [place] # (Auto) (0.0-0.8) K/uL Eos # (Auto) (0.0-0.7) K/uL Baso # (Auto) (0.0-0.1) K/uL Nucleated RBC % /100WBC Nucleated RBCs # K/uL Lactate (0.20-2.00) mmol/L Sodium (136-145) mmol/L Potassium (3.5-5.1) mmol/L Chloride (98-107) mmol/L Carbon Dioxide (21.0-32.0) mmol/L BUN (7.0-18.0) mg/dL Creatinine (0.6-1.0) mg/dL Est Cr Clr Drug Dosing mL/min Estimated GFR (MDRD) ml/min Glucose (74-106) mg/dL Calcium (8.5-10.1) mg/dL Total Bilirubin (0.2-1.0) mg/dL AST (15-37) IU/L ALT (14-63) IU/L Alkaline Phosphatase (46-116) U/L Total Protein (6.4-8.2) g/dL Albumin (3.4-5.0) g/dL Globulin (2.0-3.5) g/dL Albumin/Globulin Ratio (1.3-2.8) Amylase (25-115) U/L Lipase (73-393) U/L Urine Color YELLOW Urine Appearance CLEAR Urine pH 6.5 (5.0-8.0) Ur Specific Beauty 1.025 (1.001-1.035) Urine Protein 100 (NEGATIVE) mg/dL Urine Glucose (UA) NEGATIVE (NEGATIVE) mg/dL Urine Ketones 40 H (NEGATIVE) mg/dL Urine Occult Blood SMALL H (NEGATIVE) Urine Nitrite NEGATIVE (NEGATIVE) Urine Bilirubin NEGATIVE (NEGATIVE) Urine Urobilinogen 0.2 (<2.0) EU/dL Ur Leukocyte Esterase NEGATIVE (NEGATIVE) Urine RBC 0-2 (0-2/HPF) Urine WBC 0-1 (0-5/HPF) Ur Epithelial Cells RARE (NONE-FEW) Urine Bacteria RARE (NEGATIVE) Result Diagrams: 08/08/17 05:22 08/08/17 05:22 - Problem List (1) Constipation due to slow transit SNOMED Code(s): 31282312 ICD Code: K59.01 - SLOW TRANSIT CONSTIPATION Status: Acute Current Visit : Yes (2) Abdominal distension SNOMED Code(s): 67515874 ICD Code: R14.0 - ABDOMINAL DISTENSION (GASEOUS) Status: Acute Priority: Medium Current Visit: Yes (3) Rectal prolapse SNOMED Code(s): 87152960 ICD Code: K62.3 - RECTAL PROLAPSE Status: Acute Priority: Medium Current Visit: Yes (4) Right groin mass SNOMED Code(s): 668079546 ICD Code: R19.09 - OTHER INTRA-ABDOMINAL AND PELVIC SWELLING, MASS AND LUMP Status: Acute Priority: Medium Current Visit: Yes (5) Large hiatal hernia SNOMED Code(s): 05574986 ICD Code: K44.9 - DIAPHRAGMATIC HERNIA WITHOUT OBSTRUCTION OR GANGRENE Status: Acute Current Visit: Yes (6) Femoral hernia of right side SNOMED Code(s): 86568896 ICD Code: K41.90 - UNIL FEMORAL HERNIA, W/O OBST OR GANGRENE, NOT SPCF RECUR Status: Acute Current Visit: Yes (7) Pulmonary emphysema SNOMED Code(s): 10104897 ICD Code: J43.9 - EMPHYSEMA, UNSPECIFIED Status: Acute Current Visit: Yes (8) Cachexia SNOMED Code(s): 941839870 ICD Code: R64 - CACHEXIA Status: Acute Current Visit: Yes (9) Weight loss, non-intentional SNOMED Code(s): 110099359 ICD Code: R63.4 - ABNORMAL WEIGHT LOSS Status: Acute Current Visit: Yes (10) Pancreatic cyst SNOMED Code(s): 05456432 ICD Code: K86.2 - CYST OF PANCREAS Status: Acute Current Visit: Yes (11) Gallbladder stone without cholecystitis or obstruction SNOMED Code(s): 831954143 ICD Code: K80.20 - CALCULUS OF GALLBLADDER W/O CHOLECYSTITIS W/O OBSTRUCTION Status: Acute Current Visit: Yes (12) Hypertension SNOMED Code(s): 87865990 ICD Code: I10 - ESSENTIAL (PRIMARY) HYPERTENSION Status: Acute Current Visit: Yes (13) Abdominal pain SNOMED Code(s): 98111563 ICD Code: R10.9 - UNSPECIFIED ABDOMINAL PAIN Status: Acute Current Visit : Yes Problem List Initiated/Reviewed/Updated: Yes Orders Last 24hrs: Active Orders 24 hr Category Date Time Status Patient Status [ADT] Stat ADT 08/08/17 08:43 Active Enema [RC] ASDIRECTED Care 08/08/17 17:07 Active Notify Provider Consults [RC] ASDIRECTED Care 08/08/17 08:19 Active Oxygen Therapy [RC] PRN Care 08/08/17 10:16 Active Pulse Oximetry [RC] PRN Care 08/08/17 10:17 Active VTE/DVT Education [RC] PER UNIT ROUTINE Care 08/08/17 10:16 Active Vital Signs [RC] Q4H Care 08/08/17 10:16 Active Consult to Dietary [Consult to Hand Assembler For Puller Over] [CONS] Cons 08/08/17 10:40 Active Routine Consult to Physician [CONS] Stat Cons 08/08/17 08:19 Active Nothing per Oral Now Diet [DIET] Diet 08/08/17 Lunch Active CBC W/O DIFF,HEMOGRAM [HEME] AM Lab 08/09/17 05:11 Ordered CBC W/O DIFF,HEMOGRAM [HEME] AM Lab 08/10/17 05:11 Ordered CBC W/O DIFF,HEMOGRAM [HEME] AM Lab 08/11/17 05:11 Ordered CBC W/O DIFF,HEMOGRAM [HEME] AM Lab 08/12/17 05:11 Ordered CBC W/O DIFF,HEMOGRAM [HEME] AM Lab 08/13/17 05:11 Ordered CMP [COMPREHENSIVE METABOLIC PN,CMP] [CHEM] AM Lab 08/09/17 05:11 Ordered CMP [COMPREHENSIVE METABOLIC PN,CMP] [CHEM] AM Lab 08/10/17 05:11 Ordered CMP [COMPREHENSIVE METABOLIC PN,CMP] [CHEM] AM Lab 08/11/17 05:11 Ordered CMP [COMPREHENSIVE METABOLIC PN,CMP] [CHEM] AM Lab 08/12/17 05:11 Ordered CMP [COMPREHENSIVE METABOLIC PN,CMP] [CHEM] AM Lab 08/13/17 05:11 Ordered CULTURE BLOOD [BC] Stat Lab 08/08/17 05:22 Received CULTURE BLOOD [BC] Stat Lab 08/08/17 05:34 Received CULTURE URINE [RM] Stat Lab 08/08/17 06:20 Received UA W/MICROSCOPIC [URIN] Stat Lab 08/08/17 06:20 Ordered Acetaminophen [Ofirmev] 1,000 mg Med 08/08/17 11:45 Active Premix Bag 1 bag IV Q6H Albuterol [Ventolin HFA] Med 08/08/17 17:55 Pending 1 gm INH Q4H PRN Ascorbic Acid [Vitamin C] Med 08/09/17 09:00 Active 1,000 mg PO DAILY Aspirin Med 08/09/17 09:00 Active 81 mg PO DAILY Calcium Carbonate/Vitamin D3 [Caltrate 600+D 1500 MG- Med 08/09/17 09:00 Active 400 Units] 1 tab PO DAILY Cyanocobalamin (Vitamin B12) [Vitamin B12] Med 08/09/17 09:00 Active 1,000 mcg PO DAILY Docusate Sodium [Colace] Med 08/08/17 21:00 Active 100 mg PO BID Docusate Sodium [Colace] Med 08/08/17 16:59 Active 200 mg PO BID PRN Enoxaparin [Lovenox] Med 08/08/17 10:30 Active 40 mg SUBCUT Q24H Erythromycin Base [Erythromycin 0.5% Ophth Oint] Med 08/09/17 09:00 Active 0 gm EYEBOTH DAILY Fluticasone/Salmeterol [Advair Diskus 250-50] Med 08/08/17 21:00 Active 1 puff INH BID Lactated Ringers [Ringers, Lactated] 1,000 ml Med 08/08/17 10:30 Active IV ASDIRECTED Magnesium Hydroxide [Milk of Magnesia] Med 08/08/17 17:05 Active 30 ml PO Q4H PRN Metoclopramide [Reglan] Med 08/08/17 15:48 Active 10 mg IVPUSH Q6H PRN Mineral Oil Med 08/08/17 22:00 Once 15 ml PO ONETIME ONE Ondansetron [Zofran] Med 08/08/17 15:45 Active 4 mg IVPUSH Q4H PRN Patient's Own Medication [Ptom] Med 08/09/17 09:00 Active 1 each EYEBOTH DAILY Polyethylene Glycol 3350 [MiraLAX] Med 08/08/17 10:16 Active 17 gm PO DAILY PRN Sodium Chloride 0.9% [Saline Flush] Med 08/08/17 05:16 Active 10 ml FLUSH ASDIRECTED PRN Sodium Chloride 0.9% [Saline Flush] Med 08/08/17 05:16 Active 2.5 ml FLUSH ASDIRECTED PRN Blood Culture x2 Reflex Set [OM.PC] Stat Oth 08/08/17 05:18 Ordered Saline Lock Insert [OM.PC] Stat Oth 08/08/17 05:15 Ordered Sequential Compression Device [OM.PC] Per Unit Routine Oth 08/08/17 10:17 Ordered Resuscitation Status Routine Resus Stat 08/08/17 10:16 Ordered Medication Orders Albuterol (Ventolin Hfa) 1 gm INH Q4H PRN PRN Reason: Shortness of Breath Ascorbic Acid (Vitamin C) 1,000 mg PO DAILY [facility] Aspirin (Aspirin) 81 mg PO DAILY [facility] Calcium Carbonate (Caltrate 600+D 1500 Mg-400 Units) 1 tab PO DAILY [facility] Cyanocobalamin (Vitamin B12) 1,000 mcg PO DAILY [facility] Docusate Sodium (Colace) 100 mg PO BID JACI Docusate Sodium (Colace) 200 mg PO BID PRN PRN Reason: Constipation Enoxaparin Sodium (Lovenox) 40 mg SUBCUT Q24H JACI Last Admin: 08/08/17 11:28 Dose: 40 mg Erythromycin (Erythromycin 0.5% Ophth Oint) 0 gm EYEBOTH DAILY [facility] Lactated Ringer's (Ringers, Lactated) 1,000 mls @ 75 mls/hr IV ASDIRECTED JACI Last Admin: 08/08/17 14:55 Dose: 75 mls/hr Acetaminophen 1,000 mg/ Premix 100 mls @ 400 mls/hr IV Q6H PRN PRN Reason: Pain Last Admin: 08/08/17 11:55 Dose: 400 mls/hr Magnesium Hydroxide (Milk Of Magnesia) 30 ml PO Q4H PRN PRN Reason: Constipation Metoclopramide HCl (Reglan) 10 mg IVPUSH Q6H PRN PRN Reason: nausea Last Admin: 08/08/17 15:53 Dose: 10 mg Mineral Oil (Mineral Oil) 15 ml PO ONETIME ONE Stop: 08/08/17 22:01 Ondansetron HCl (Zofran) 4 mg IVPUSH Q4H PRN PRN Reason: Nausea Cyclosporine 1 Dose 1 each EYEBOTH DAILY [facility]ACI Polyethylene Glycol (Miralax) 17 gm PO DAILY PRN PRN Reason: Constipation Last Admin: 08/08/17 11:43 Dose: 17 gm Fluticasone/Salmeterol (Advair Diskus 250-50) 1 puff INH BID [facility] Sodium Chloride (Saline Flush) 10 ml FLUSH ASDIRECTED PRN PRN Reason: Keep Vein Open Sodium Chloride (Saline Flush) 2.5 ml FLUSH ASDIRECTED PRN PRN Reason: Keep Vein Open assessment and plan 1) abdominal pain and constipation - possible SBO- will start patient on gentle bowel preparation with Miralax 30 ml po daily , will hold calcium preparations and calcium blockers as they cause constipation gentle fluid hydration. Will also give patient milk of magnesia 30 cc q 4h and mineral oil 15 cc po mild hydration with Ringer lactate at 75 cc /h, antinausea medication, tylenol 1000 mg iv q 6 h prn for pain 2)Htn u/c will give patient labetalol 20 mg ivp q4 h prn for sbp more than 160, hold if Hr is less than 60 3) Cachexia, weight loss- BMI is 15.5 - will request tongue and groove machine feeder consult 4) rectal prolapse - will try to push back the rectum manually 5)DVT prof -will hold heparin now as patient has fresh blood at the site of rectal prolapse Emphysema_ continue Advair 1 puff inh BID , ventolin neb treatment 2 puffs ing q 4 h prn for sob, wheezing GI prophylaxis - Protonix iv .
[2017-08-08] MEDS: Docusate Sodium 100 MG Cap PO SCH (20:17)
[2017-08-08] MEDS: Fluticasone/Salmeterol 250-50 MCG Inhalation Powder 14/Diskus INH SCH (21:23)
[2017-08-09] MEDS: Acetaminophen 1,000 MG in Premix Bag 1 BAG IV PRN ×2 (01:30→12:40)
[2017-08-09] MEDS: Temazepam 15 MG Cap PO PRN (02:32)
[2017-08-09] MEDS: Lactated Ringers 1,000 ML IV SCH ×2 (03:45→18:52)
[2017-08-09 05:53] LABS: CHLORIDE,CL 101 mmol/L (98-107); SODIUM,NA 133 mmol/L (136-145)
[2017-08-09] MEDS: Metoclopramide 10 MG/2 ML SDV IVPUSH PRN ×3 (08:24→23:34)
[2017-08-09] MEDS: Docusate Sodium 100 MG Cap PO SCH ×2 (08:25→20:49)
[2017-08-09] MEDS: Ascorbic Acid 500 MG Tab PO SCH (08:25)
[2017-08-09] MEDS: Cyanocobalamin (Vitamin B12) 500 MCG Tab PO SCH (08:25)
[2017-08-09] MEDS: Aspirin 81 MG Tab.Chew PO SCH (08:25)
[2017-08-09] MEDS: Erythromycin Base 0.5% Ophth Oint 1 GM Tube EYEBOTH SCH (08:26)
[2017-08-09] MEDS: CYCLOSPORINE EYEBOTH SCH (08:27)
[2017-08-09] MEDS: Fluticasone/Salmeterol 250-50 MCG Inhalation Powder 14/Diskus INH SCH ×2 (08:29→21:25)
[2017-08-09] MEDS ORDERED: Calcium Carbonate/Vitamin D3 1500 MG-400 Units Tab PO SCH (09:00)
[2017-08-09] MEDS: Enoxaparin 40 MG/0.4 ML Syringe SUBCUT SCH (11:30)
[2017-08-09] MEDS: Polyethylene Glycol 3350 Powder 17 GM Packet PO PRN (11:43)
[2017-08-09] MEDS: Labetalol 20 MG/4 ML Syringe IVPUSH PRN ×2 (12:41→20:58)
--- NOTE | 2017-08-09 13:28 | PCM.PN ---
- General Info Date of Service: 08/09/17 Admission Dx/Problem (Free Text): Admission Diagnosis/Problem Admission Diagnosis/Problem dry heaves with abdominal pain Subjective Update: Patient passing flatus. Decreased abdominal pain reduced to 3/10 intensity. Patient rectal prolapse was reduced manually by me. She still has nausea. Her abdomen remains distended . - Review of Systems General: Reports: No Symptoms HEENT: Reports: No Symptoms Pulmonary: Reports: No Symptoms Cardiovascular: Reports: No Symptoms Gastrointestinal: Reports: Abdominal Pain (3/10I), Nausea Genitourinary: Reports: No Symptoms Musculoskeletal: Reports: No Symptoms Skin: Reports: No Symptoms Neurological: Reports: No Symptoms Psychiatric: Reports: No Symptoms - Patient Data Vitals - Most Recent: Last Vital Signs Temp 97.8 F 08/09/17 12:00 Pulse 71 08/09/17 12:00 Resp 20 08/09/17 12:00 BP 176/80 H 08/09/17 12:00 Pulse Ox 92 L 08/09/17 12:00 Weight - Most Recent: 90 lb 6.232 oz I&O - Last 24 Hours: Intake & Output 08/08/17 08/09/17 08/09/17 22:59 06:59 14:59 Intake Total 150 1150 Output Total 100 550 Balance 50 600 Lab Results Last 24 Hours: Laboratory Results - last 24 hr 08/09/17 08/09/17 Range/Units 04:59 04:59 WBC 6.45 (4.0-11.0) K/uL RBC 4.69 (4.30-5.90) M/uL Hgb 13.7 (12.0-16.0) g/dL Hct 42.1 (36.0-46.0) % MCV 89.8 (80.0-98.0) fL MCH 29.2 (27.0-32.0) pg MCHC 32.5 (31.0-37.0) g/dL RDW Std Deviation 48.1 (28.0-62.0) fl RDW Coeff of Ellie 15 (11.0-15.0) % Plt Count 223 (150-400) K/uL MPV 9.20 (7.40-12.00) fL Nucleated RBC % 0.0 /100WBC Nucleated RBCs # 0 K/uL Sodium 133 L (136-145) mmol/L Potassium 3.6 (3.5-5.1) mmol/L Chloride 101 (98-107) mmol/L Carbon Dioxide 24.8 (21.0-32.0) mmol/L BUN 23 H (7.0-18.0) mg/dL Creatinine 0.8 (0.6-1.0) mg/dL Est Cr Clr Drug Dosing 35.09 mL/min Estimated GFR (MDRD) > 60.0 ml/min Glucose 108 H (74-106) mg/dL Calcium 8.4 L (8.5-10.1) mg/dL Total Bilirubin 0.6 (0.2-1.0) mg/dL AST 25 (15-37) IU/L ALT 12 L (14-63) IU/L Alkaline Phosphatase 82 (46-116) U/L Total Protein 6.4 (6.4-8.2) g/dL Albumin 2.6 L (3.4-5.0) g/dL Globulin 3.8 H (2.0-3.5) g/dL Albumin/Globulin Ratio 0.7 L (1.3-2.8) Justice Results Last 24 Hours: Microbiology 08/08/17 06:20 Urine Culture - Final Urine, Clean Catch MIXED RENE >100,000 CFU/ML 08/08/17 05:34 Aerobic Blood Culture - Preliminary Blood - Venous - Lab Draw NO GROWTH AFTER 1 DAY Anaerobic Blood Culture - Preliminary NO GROWTH AFTER 1 DAY 08/08/17 05:22 Aerobic Blood Culture - Preliminary Blood - Venous NO GROWTH AFTER 1 DAY Anaerobic Blood Culture - Preliminary NO GROWTH AFTER 1 DAY Med Orders - Current: Current Medications Albuterol (Ventolin Hfa) 0 gm INH Q4H PRN PRN Reason: Shortness of Breath Ascorbic Acid (Vitamin C) 1,000 mg PO DAILY [facility] Last Admin: 08/09/17 08:25 Dose: 1,000 mg Aspirin (Aspirin) 81 mg PO DAILY [facility] Last Admin: 08/09/17 08:25 Dose: 81 mg Cyanocobalamin (Vitamin B12) 1,000 mcg PO DAILY [facility] Last Admin: 08/09/17 08:25 Dose: 1,000 mcg Docusate Sodium (Colace) 100 mg PO BID [facility] Last Admin: 08/09/17 08:25 Dose: 100 mg Docusate Sodium (Colace) 200 mg PO BID PRN PRN Reason: Constipation Enoxaparin Sodium (Lovenox) 40 mg SUBCUT Q24H [facility] Last Admin: 08/09/17 11:30 Dose: 40 mg Erythromycin (Erythromycin 0.5% Ophth Oint) 0 gm EYEBOTH DAILY [facility] Last Admin: 08/09/17 08:26 Dose: 1 applic Lactated Ringer's (Ringers, Lactated) 1,000 mls @ 75 mls/hr IV ASDIRECTED [facility] Last Admin: 08/09/17 03:45 Dose: 75 mls/hr Acetaminophen 1,000 mg/ Premix 100 mls @ 400 mls/hr IV Q6H PRN PRN Reason: Pain Last Admin: 08/09/17 12:40 Dose: 400 mls/hr Labetalol HCl (Normodyne) 20 mg IVPUSH Q4H PRN; Protocol PRN Reason: Hypertension Last Admin: 08/09/17 12:41 Dose: 20 mg Magnesium Hydroxide (Milk Of Magnesia) 30 ml PO Q4H PRN PRN Reason: Constipation Metoclopramide HCl (Reglan) 10 mg IVPUSH Q6H PRN PRN Reason: nausea Last Admin: 08/09/17 08:24 Dose: 10 mg Ondansetron HCl (Zofran) 4 mg IVPUSH Q4H PRN PRN Reason: Nausea Cyclosporine 1 Dose 1 each EYEBOTH DAILY [facility] Last Admin: 08/09/17 08:27 Dose: Not Given Polyethylene Glycol (Miralax) 17 gm PO DAILY PRN PRN Reason: Constipation Last Admin: 08/09/17 11:43 Dose: 17 gm Fluticasone/Salmeterol (Advair Diskus 250-50) 1 puff INH BID [facility] Last Admin: 08/09/17 08:29 Dose: 1 puff Sodium Chloride (Saline Flush) 10 ml FLUSH ASDIRECTED PRN PRN Reason: Keep Vein Open Sodium Chloride (Saline Flush) 2.5 ml FLUSH ASDIRECTED PRN PRN Reason: Keep Vein Open Temazepam (Restoril) 15 mg PO BEDTIME PRN PRN Reason: Sleep Last Admin: 08/09/17 02:32 Dose: 15 mg Discontinued Medications Albuterol (Ventolin Hfa) 0 gm INH Q4H [facility] Last Admin: 08/08/17 15:37 Dose: Not Given Calcium Carbonate (Caltrate 600+D 1500 Mg-400 Units) 1 tab PO DAILY [facility] Sodium Chloride (Normal Saline) 1,000 mls @ 75 mls/hr IV ASDIRECTED [facility] Last Admin: 08/08/17 05:22 Dose: 75 mls/hr Iopamidol (Isovue-370 (76%)) 60 ml IVPUSH ONETIME STA Stop: 08/08/17 07:29 Last Admin: 08/08/17 07:37 Dose: 60 ml Ketorolac Tromethamine (Toradol) 15 mg IVPUSH ONETIME ONE Stop: 08/08/17 05:17 Last Admin: 08/08/17 05:26 Dose: 15 mg Labetalol HCl (Normodyne) 20 mg IVPUSH NOW ONE; Protocol Stop: 08/08/17 17:01 Last Admin: 08/08/17 17:30 Dose: 20 mg Magnesium Hydroxide (Milk Of Magnesia) 30 ml PO DAILY PRN PRN Reason: constipation Mineral Oil (Mineral Oil) 15 ml PO ONETIME ONE Stop: 08/08/17 17:11 Last Admin: 08/08/17 17:33 Dose: 15 ml Mineral Oil (Mineral Oil) 15 ml PO ONETIME ONE Stop: 08/08/17 22:01 Last Admin: 08/08/17 23:10 Dose: 15 ml Mineral Oil (Mineral Oil) 30 ml PO ONETIME ONE Stop: 08/09/17 13:05 Ondansetron HCl (Zofran) 4 mg IVPUSH ONETIME ONE Stop: 08/08/17 05:17 Last Admin: 08/08/17 05:26 Dose: 4 mg Pantoprazole Sodium (Protonix Iv) 40 mg IVPUSH NOW ONE Stop: 08/08/17 05:18 Last Admin: 08/08/17 05:26 Dose: 40 mg - Exam General: Alert, Oriented HEENT: Pupils Equal, Pupils Reactive Neck: Supple, Trachea Midline, No JVD Lungs: Clear to Auscultation, Normal Respiratory Effort Cardiovascular: Regular Rate, Regular Rhythm, No Murmurs GI/Abdominal Exam: Soft, No Organomegaly, Distended, Tender, Abnormal Bowel Sounds (decreased bs), Other Extremities: Normal Inspection Skin: Warm Wound/Incisions: Healing Well Neurological: No New Focal Deficit Psy/Mental Status: Alert - Problem List & Annotations (1) Constipation due to slow transit SNOMED Code(s): 36272260 Code(s): K59.01 - SLOW TRANSIT CONSTIPATION Status: Acute Current Visit: Yes (2) Abdominal distension SNOMED Code(s): 64144353 Code(s): R14.0 - ABDOMINAL DISTENSION (GASEOUS) Status: Acute Priority: Medium Current Visit: Yes (3) Rectal prolapse SNOMED Code(s): 89924092 Code(s): K62.3 - RECTAL PROLAPSE Status: Acute Priority: Medium Current Visit: Yes (4) Right groin mass SNOMED Code(s): 841209356 Code(s): R19.09 - OTHER INTRA-ABDOMINAL AND PELVIC SWELLING, MASS AND LUMP Status: Acute Priority: Medium Current Visit: Yes (5) Large hiatal hernia SNOMED Code(s): 24496559 Code(s): K44.9 - DIAPHRAGMATIC HERNIA WITHOUT OBSTRUCTION OR GANGRENE Status: Acute Current Visit: Yes (6) Femoral hernia of right side SNOMED Code(s): 99491296 Code(s): K41.90 - UNIL FEMORAL HERNIA, W/O OBST OR GANGRENE, NOT SPCF RECUR Status: Acute Current Visit: Yes (7) Pulmonary emphysema SNOMED Code(s): 68798400 Code(s): J43.9 - EMPHYSEMA, UNSPECIFIED Status: Acute Current Visit: Yes (8) Cachexia SNOMED Code(s): 300834707 Code(s): R64 - CACHEXIA Status: Acute Current Visit: Yes (9) Weight loss, non-intentional SNOMED Code(s): 438430131 Code(s): R63.4 - ABNORMAL WEIGHT LOSS Status: Acute Current Visit: Yes (10) Pancreatic cyst SNOMED Code(s): 61413978 Code(s): K86.2 - CYST OF PANCREAS Status: Acute Current Visit: Yes (11) Gallbladder stone without cholecystitis or obstruction SNOMED Code(s): 051359810 Code(s): K80.20 - CALCULUS OF GALLBLADDER W/O CHOLECYSTITIS W/O OBSTRUCTION Status: Acute Current Visit: Yes (12) Hypertension SNOMED Code(s): 05697554 Code(s): I10 - ESSENTIAL (PRIMARY) HYPERTENSION Status: Acute Current Visit: Yes (13) Abdominal pain SNOMED Code(s): 03969724 Code(s): R10.9 - UNSPECIFIED ABDOMINAL PAIN Status: Acute Current Visit: Yes - Problem List Review Problem List Initiated/Reviewed/Updated: Yes - My Orders Last 24 Hours: My Active Orders 08/08/17 15:48 Metoclopramide [Reglan] 10 mg IVPUSH Q6H PRN 08/08/17 16:59 Docusate Sodium [Colace] 200 mg PO BID PRN 08/08/17 17:05 Magnesium Hydroxide [Milk of Magnesia] 30 ml PO Q4H PRN 08/08/17 17:07 Enema [RC] ASDIRECTED 08/08/17 17:55 Albuterol [Ventolin HFA] 0 gm INH Q4H PRN 08/08/17 21:00 Docusate Sodium [Colace] 100 mg PO BID Fluticasone/Salmeterol [Advair Diskus 250-50] 1 puff INH BID 08/09/17 02:15 Temazepam [Restoril] 15 mg PO BEDTIME PRN 08/09/17 09:00 Ascorbic Acid [Vitamin C] 1,000 mg PO DAILY Aspirin 81 mg PO DAILY Cyanocobalamin (Vitamin B12) [Vitamin B12] 1,000 mcg PO DAILY Erythromycin Base [Erythromycin 0.5% Ophth Oint] 0 gm EYEBOTH DAILY Patient's Own Medication [Ptom] 1 each EYEBOTH DAILY 08/09/17 09:21 Nasogastric Orogastric Tube Insertion [OM.PC] Routine 08/09/17 09:39 Communication Order [RC] PER UNIT ROUTINE 08/09/17 12:12 Labetalol [Normodyne] 20 mg IVPUSH Q4H PRN 08/09/17 Breakfast Clear Liquid Diet [DIET] 08/10/17 05:11 CBC W/O DIFF,HEMOGRAM [HEME] AM CMP [COMPREHENSIVE METABOLIC PN,CMP] [CHEM] AM 08/11/17 05:11 CBC W/O DIFF,HEMOGRAM [HEME] AM CMP [COMPREHENSIVE METABOLIC PN,CMP] [CHEM] AM 08/12/17 05:11 CBC W/O DIFF,HEMOGRAM [HEME] AM CMP [COMPREHENSIVE METABOLIC PN,CMP] [CHEM] AM 08/13/17 05:11 CBC W/O DIFF,HEMOGRAM [HEME] AM CMP [COMPREHENSIVE METABOLIC PN,CMP] [CHEM] AM - Plan Plan:: assessment and plan 1) abdominal pain and constipation - improving - andominal pain significantly decreased , passing small amount of gases , continue gentle bowel preparation with Miralax 30 ml po daily , will hold calcium preparations and calcium blockers as they cause constipation. Will also give patient milk of magnesia 30 cc q 4h and mineral oil 30 cc po mild hydration with Ringer lactate at 75 cc /h, antinausea medication, tylenol 1000 mg iv q 6 h prn for pain. Warm water enema 2)Htn u/c will give patient labetalol 20 mg ivp q4 h prn for sbp more than 160, hold if Hr is less than 60 3) Cachexia, weight loss- BMI is 15.5 - will request machine heel builder consult 4) rectal prolapse - I have pushed back rectum manually, using sugilube 5)DVT prof -enoxapin subcutaneous Emphysema_ continue Advair 1 puff inh BID , ventolin neb treatment 2 puffs ing q 4 h prn for sob, wheezing GI prophylaxis - Protonix iv .
--- NOTE | 2017-08-09 14:42 | PCM.CONSN ---
- General Info Date of Service: 08/09/17 Admission Dx/Problem (Free Text): Feeling better. Some nausea but no dry heaves. States she is passing gas. Nurses noted a small BM this am. Patient thinks her abdomen is still slightly distended. Denies pain. Functional Status: Reports: Pain Controlled, Ambulating, Urinating - Review of Systems General: Reports: Fever (low grade), Fatigue HEENT: Reports: No Symptoms Pulmonary: Reports: Shortness of Breath. Denies: Pleuritic Chest Pain, Cough Cardiovascular: Denies: Chest Pain Gastrointestinal: Reports: Constipation, Flatus, Nausea. Denies: Abdominal Pain , Diarrhea, Difficulty Swallowing, Vomiting Genitourinary: Reports: No Symptoms Musculoskeletal: Reports: No Symptoms Skin: Reports: No Symptoms Neurological: Reports: No Symptoms Psychiatric: Reports: No Symptoms - Patient Data Vitals - Most Recent: Last Vital Signs Temp 97.8 F 08/09/17 12:00 Pulse 71 08/09/17 12:00 Resp 20 08/09/17 12:00 BP 176/80 H 08/09/17 12:00 Pulse Ox 92 L 08/09/17 12:00 Weight - Most Recent: 90 lb 6.232 oz I&O - Last 24 Hours: Intake & Output 08/09/17 08/09/17 08/09/17 03:59 11:59 19:59 Intake Total 1100 50 100 Output Total 550 Balance 1100 -500 100 Lab Results Last 24 Hours: Laboratory Results - last 24 hr 08/09/17 08/09/17 Range/Units 04:59 04:59 WBC 6.45 (4.0-11.0) K/uL RBC 4.69 (4.30-5.90) M/uL Hgb 13.7 (12.0-16.0) g/dL Hct 42.1 (36.0-46.0) % MCV 89.8 (80.0-98.0) fL MCH 29.2 (27.0-32.0) pg MCHC 32.5 (31.0-37.0) g/dL RDW Std Deviation 48.1 (28.0-62.0) fl RDW Coeff of Ellie 15 (11.0-15.0) % Plt Count 223 (150-400) K/uL MPV 9.20 (7.40-12.00) fL Nucleated RBC % 0.0 /100WBC Nucleated RBCs # 0 K/uL Sodium 133 L (136-145) mmol/L Potassium 3.6 (3.5-5.1) mmol/L Chloride 101 (98-107) mmol/L Carbon Dioxide 24.8 (21.0-32.0) mmol/L BUN 23 H (7.0-18.0) mg/dL Creatinine 0.8 (0.6-1.0) mg/dL Est Cr Clr Drug Dosing 35.09 mL/min Estimated GFR (MDRD) > 60.0 ml/min Glucose 108 H (74-106) mg/dL Calcium 8.4 L (8.5-10.1) mg/dL Total Bilirubin 0.6 (0.2-1.0) mg/dL AST 25 (15-37) IU/L ALT 12 L (14-63) IU/L Alkaline Phosphatase 82 (46-116) U/L Total Protein 6.4 (6.4-8.2) g/dL Albumin 2.6 L (3.4-5.0) g/dL Globulin 3.8 H (2.0-3.5) g/dL Albumin/Globulin Ratio 0.7 L (1.3-2.8) Justice Results Last 24 Hours: Microbiology 08/08/17 06:20 Urine Culture - Final Urine, Clean Catch MIXED RENE >100,000 CFU/ML 08/08/17 05:34 Aerobic Blood Culture - Preliminary Blood - Venous - Lab Draw NO GROWTH AFTER 1 DAY Anaerobic Blood Culture - Preliminary NO GROWTH AFTER 1 DAY 08/08/17 05:22 Aerobic Blood Culture - Preliminary Blood - Venous NO GROWTH AFTER 1 DAY Anaerobic Blood Culture - Preliminary NO GROWTH AFTER 1 DAY Med Orders - Current: Current Medications Acetaminophen (Tylenol Extra Strength) 1,000 mg PO Q6H PRN PRN Reason: PAIN Albuterol (Ventolin Hfa) 0 gm INH Q4H PRN PRN Reason: Shortness of Breath Ascorbic Acid (Vitamin C) 1,000 mg PO DAILY [facility] Last Admin: 08/09/17 08:25 Dose: 1,000 mg Aspirin (Aspirin) 81 mg PO DAILY [facility] Last Admin: 08/09/17 08:25 Dose: 81 mg Cyanocobalamin (Vitamin B12) 1,000 mcg PO DAILY [facility] Last Admin: 08/09/17 08:25 Dose: 1,000 mcg Docusate Sodium (Colace) 100 mg PO BID [facility] Last Admin: 08/09/17 08:25 Dose: 100 mg Docusate Sodium (Colace) 200 mg PO BID PRN PRN Reason: Constipation Erythromycin (Erythromycin 0.5% Ophth Oint) 0 gm EYEBOTH DAILY [facility] Last Admin: 08/09/17 08:26 Dose: 1 applic Heparin Sodium (Porcine) (Heparin Sodium) 5,000 units SUBCUT Q12H [facility] Lactated Ringer's (Ringers, Lactated) 1,000 mls @ 75 mls/hr IV ASDIRECTED [facility] Last Admin: 08/09/17 03:45 Dose: 75 mls/hr Labetalol HCl (Normodyne) 20 mg IVPUSH Q4H PRN; Protocol PRN Reason: Hypertension Last Admin: 08/09/17 12:41 Dose: 20 mg Magnesium Hydroxide (Milk Of Magnesia) 30 ml PO Q4H PRN PRN Reason: Constipation Metoclopramide HCl (Reglan) 5 mg IVPUSH Q6H PRN PRN Reason: nausea Ondansetron HCl (Zofran) 4 mg IVPUSH Q4H PRN PRN Reason: Nausea Cyclosporine 1 Dose 1 each EYEBOTH DAILY [facility] Last Admin: 08/09/17 08:27 Dose: Not Given Polyethylene Glycol (Miralax) 17 gm PO DAILY PRN PRN Reason: Constipation Last Admin: 08/09/17 11:43 Dose: 17 gm Fluticasone/Salmeterol (Advair Diskus 250-50) 1 puff INH BID [facility] Last Admin: 08/09/17 08:29 Dose: 1 puff Sodium Chloride (Saline Flush) 10 ml FLUSH ASDIRECTED PRN PRN Reason: Keep Vein Open Sodium Chloride (Saline Flush) 2.5 ml FLUSH ASDIRECTED PRN PRN Reason: Keep Vein Open Temazepam (Restoril) 15 mg PO BEDTIME PRN PRN Reason: Sleep Last Admin: 08/09/17 02:32 Dose: 15 mg Discontinued Medications Albuterol (Ventolin Hfa) 0 gm INH Q4H [facility] Last Admin: 08/08/17 15:37 Dose: Not Given Calcium Carbonate (Caltrate 600+D 1500 Mg-400 Units) 1 tab PO DAILY [facility] Enoxaparin Sodium (Lovenox) 40 mg SUBCUT Q24H [facility] Last Admin: 08/09/17 11:30 Dose: 40 mg Sodium Chloride (Normal Saline) 1,000 mls @ 75 mls/hr IV ASDIRECTED [facility] Last Admin: 08/08/17 05:22 Dose: 75 mls/hr Acetaminophen 1,000 mg/ Premix 100 mls @ 400 mls/hr IV Q6H PRN PRN Reason: Pain Last Admin: 08/09/17 12:40 Dose: 400 mls/hr Iopamidol (Isovue-370 (76%)) 60 ml IVPUSH ONETIME STA Stop: 08/08/17 07:29 Last Admin: 08/08/17 07:37 Dose: 60 ml Ketorolac Tromethamine (Toradol) 15 mg IVPUSH ONETIME ONE Stop: 08/08/17 05:17 Last Admin: 08/08/17 05:26 Dose: 15 mg Labetalol HCl (Normodyne) 20 mg IVPUSH NOW ONE; Protocol Stop: 08/08/17 17:01 Last Admin: 08/08/17 17:30 Dose: 20 mg Magnesium Hydroxide (Milk Of Magnesia) 30 ml PO DAILY PRN PRN Reason: constipation Metoclopramide HCl (Reglan) 10 mg IVPUSH Q6H PRN PRN Reason: nausea Last Admin: 08/09/17 08:24 Dose: 10 mg Mineral Oil (Mineral Oil) 15 ml PO ONETIME ONE Stop: 08/08/17 17:11 Last Admin: 08/08/17 17:33 Dose: 15 ml Mineral Oil (Mineral Oil) 15 ml PO ONETIME ONE Stop: 08/08/17 22:01 Last Admin: 08/08/17 23:10 Dose: 15 ml Mineral Oil (Mineral Oil) 30 ml PO ONETIME ONE Stop: 08/09/17 13:05 Last Admin: 08/09/17 13:56 Dose: 30 ml Ondansetron HCl (Zofran) 4 mg IVPUSH ONETIME ONE Stop: 08/08/17 05:17 Last Admin: 08/08/17 05:26 Dose: 4 mg Pantoprazole Sodium (Protonix Iv) 40 mg IVPUSH NOW ONE Stop: 08/08/17 05:18 Last Admin: 08/08/17 05:26 Dose: 40 mg - Exam Quality Assessment: Supplemental Oxygen General: Alert, Oriented, Cooperative, No Acute Distress HEENT: Pupils Equal, Pupils Reactive. No: Scleral Icterus Neck: Supple, Trachea Midline Lungs: Clear to Auscultation, Normal Respiratory Effort Cardiovascular: Regular Rate, Regular Rhythm, No Murmurs GI/Abdominal Exam: Soft, Non-Tender, Distended, Abnormal Bowel Sounds ( hypoactive), Mass (right groin mass is unchanged.). No: Guarding, Rigid, Rebound (Female) Exam: Other (rectal prolapse) Back Exam: Other (scoliosis) Extremities: Normal Inspection, Normal Range of Motion Peripheral Pulses: 4+: Posterior Tibial (L), Posterior Tibial (R), Dorsalis Pedis (L), Dorsalis Pedis (R) Skin: Warm, Dry, Intact Neurological: No New Focal Deficit Psy/Mental Status: Alert, Normal Affect, Normal Mood Consult PN Assessment/Plan Procedures: Procedures ASSAY OF AMYLASE (12/31/14) ASSAY OF CK (CPK) (12/31/14) ASSAY OF LIPASE (12/31/14) ASSAY OF NATRIURETIC PEPTIDE (12/31/14) ASSAY OF TROPONIN QUANT (12/31/14) BLOOD CULTURE FOR BACTERIA (12/31/14) CHEST X-RAY 1 VIEW FRONTAL (12/31/14) COMPLETE CBC W/AUTO DIFF WBC (12/31/14) COMPREHEN METABOLIC PANEL (12/31/14) CONTRAST X-RAY ESOPHAGUS (03/25/17) CREATINE MB FRACTION (12/31/14) CT CHEST SPINE W/O DYE (05/20/14) CT LUMBAR SPINE W/O DYE (05/20/14) CULTURE AEROBIC IDENTIFY (12/31/14) CULTURE OTHR SPECIMN AEROBIC (12/03/14) EMERGENCY DEPT VISIT (12/31/14) EMERGENCY DEPT VISIT (12/20/14) EMERGENCY DEPT VISIT (12/03/14) EXTREMITY STUDY (12/20/14) MICROBE SUSCEPTIBLE JUSTICE (12/31/14) OFFICE/OUTPATIENT VISIT EST (02/03/14) ROUTINE VENIPUNCTURE (12/31/14) THER/PROPH/DIAG INJ SC/IM (12/31/14) THER/PROPH/DIAG IV INF INIT (12/31/14) TX/PRO/DX INJ NEW DRUG ADDON (12/31/14) URINALYSIS AUTO W/SCOPE (12/31/14) URINE CULTURE/COLONY COUNT (12/31/14) X-RAY EXAM OF LOWER LEG (12/03/14) (1) Nausea & vomiting SNOMED Code(s): 77277221 Code(s): R11.2 - NAUSEA WITH VOMITING, UNSPECIFIED Priority: Medium Current Visit: Yes Qualifiers: Vomiting type: unspecified Vomiting Intractability: non-intractable Qualified Code(s): R11.2 - Nausea with vomiting, unspecified (2) Abdominal distension SNOMED Code(s): 12647946 Code(s): R14.0 - ABDOMINAL DISTENSION (GASEOUS) Priority: Medium Current Visit: Yes (3) Rectal prolapse SNOMED Code(s): 98037671 Code(s): K62.3 - RECTAL PROLAPSE Priority: Medium Current Visit: Yes (4) Right groin mass SNOMED Code(s): 954284238 Code(s): R19.09 - OTHER INTRA-ABDOMINAL AND PELVIC SWELLING, MASS AND LUMP Priority: Medium Current Visit: Yes (5) COPD (chronic obstructive pulmonary disease) SNOMED Code(s): 77276053 Code(s): J44.9 - CHRONIC OBSTRUCTIVE PULMONARY DISEASE, UNSPECIFIED Priority: High Current Visit: Yes (6) Hypoxia SNOMED Code(s): 589787575 Code(s): R09.02 - HYPOXEMIA Priority: Medium Current Visit: No (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 Still not having much in terms of BM. Denies pain. Still some nausea but no vomiting. RECOMMEND: Conservative treatment to continue. Gentle laxative use. Try and stay off narcotics to avoid worsening constipation.
[2017-08-09] MEDS: Acetaminophen 500 MG Tab PO PRN (20:54)
[2017-08-10] MEDS: Temazepam 15 MG Cap PO PRN (02:27)
[2017-08-10] MEDS: Heparin Sodium 5,000 Units/ML Vial SUBCUT SCH ×2 (06:09→17:03)
[2017-08-10 06:17] LABS: CHLORIDE,CL 101 mmol/L (98-107); SODIUM,NA 135 mmol/L (136-145)
[2017-08-10] MEDS: Cyanocobalamin (Vitamin B12) 500 MCG Tab PO SCH (08:32)
[2017-08-10] MEDS: Ascorbic Acid 500 MG Tab PO SCH (08:32)
[2017-08-10] MEDS: Acetaminophen 500 MG Tab PO PRN ×2 (08:32→22:55)
[2017-08-10] MEDS: Aspirin 81 MG Tab.Chew PO SCH (08:32)
[2017-08-10] MEDS: Lactated Ringers 1,000 ML IV SCH ×2 (08:33→22:37)
[2017-08-10] MEDS: Erythromycin Base 0.5% Ophth Oint 1 GM Tube EYEBOTH SCH ×3 (08:33→20:33)
[2017-08-10] MEDS ORDERED: methylPREDNISolone Sodium Succinate 40 MG/1 ML SDV IVPUSH SCH (09:15)
[2017-08-10] MEDS: Fluticasone/Salmeterol 250-50 MCG Inhalation Powder 14/Diskus INH SCH ×2 (09:24→20:33)
[2017-08-10] MEDS: Docusate Sodium 100 MG Cap PO SCH ×3 (09:27→20:56)
[2017-08-10] MEDS ORDERED: Lisinopril/Hydrochlorothiazide 10-12.5 MG Tab PO SCH (09:30)
[2017-08-10] MEDS: Fish Oil/Omega-3 Fatty Acids 1 Gm Cap PO SCH (11:18)
[2017-08-10] MEDS: Multivitamins with Iron/Calcium/Folic Acid/Minerals Tab PO SCH (11:19)
[2017-08-10] MEDS: Levothyroxine 125 MCG Tab PO SCH (11:21)
--- NOTE | 2017-08-10 12:20 | PCM.PN ---
- General Info Date of Service: 08/10/17 Subjective Update: Patient received yesterday water enema and she had two large bowel movements today. She was also started on clear liquid diet . Her abdominal pain resolved . - Review of Systems General: Reports: No Symptoms HEENT: Reports: No Symptoms Pulmonary: Reports: Other (decresed O 2 sat ) Cardiovascular: Reports: No Symptoms Gastrointestinal: Reports: No Symptoms Genitourinary: Reports: No Symptoms Musculoskeletal: Reports: No Symptoms Skin: Reports: No Symptoms Neurological: Reports: No Symptoms Psychiatric: Reports: No Symptoms - Patient Data Vitals - Most Recent: Last Vital Signs Temp 97.8 F 08/10/17 08:00 Pulse 64 08/10/17 08:00 Resp 21 H 08/10/17 08:00 BP 140/66 08/10/17 08:00 Pulse Ox 92 L 08/10/17 10:00 Weight - Most Recent: 90 lb 6.232 oz I&O - Last 24 Hours: Intake & Output 08/09/17 08/10/17 08/10/17 22:59 06:59 14:59 Intake Total 1100 750 Output Total 500 450 Balance 600 300 Lab Results Last 24 Hours: Laboratory Results - last 24 hr 08/10/17 08/10/17 08/10/17 Range/Units 05:25 05:25 05:25 WBC 6.48 (4.0-11.0) K/uL RBC 4.71 (4.30-5.90) M/uL Hgb 13.9 (12.0-16.0) g/dL Hct 42.0 (36.0-46.0) % MCV 89.2 (80.0-98.0) fL MCH 29.5 (27.0-32.0) pg MCHC 33.1 (31.0-37.0) g/dL RDW Std Deviation 47.5 (28.0-62.0) fl RDW Coeff of Ellie 15 (11.0-15.0) % Plt Count 213 (150-400) K/uL MPV 9.10 (7.40-12.00) fL Nucleated RBC % 0.0 /100WBC Nucleated RBCs # 0 K/uL Sodium 135 L (136-145) mmol/L Potassium 3.6 (3.5-5.1) mmol/L Chloride 101 (98-107) mmol/L Carbon Dioxide 26.9 (21.0-32.0) mmol/L BUN 25 H (7.0-18.0) mg/dL Creatinine 0.7 (0.6-1.0) mg/dL Est Cr Clr Drug Dosing 40.10 mL/min Estimated GFR (MDRD) > 60.0 ml/min Glucose 91 (74-106) mg/dL Calcium 8.3 L (8.5-10.1) mg/dL Total Bilirubin 0.5 (0.2-1.0) mg/dL AST 25 (15-37) IU/L ALT 16 (14-63) IU/L Alkaline Phosphatase 73 (46-116) U/L Total Protein 6.3 L (6.4-8.2) g/dL Albumin 2.5 L (3.4-5.0) g/dL Globulin 3.8 H (2.0-3.5) g/dL Albumin/Globulin Ratio 0.7 L (1.3-2.8) Free T4 1.09 (0.76-1.46) ng/dL TSH 3rd Generation 4.83 H (0.36-3.74) uIU/mL Justice Results Last 24 Hours: Microbiology 08/08/17 05:34 Aerobic Blood Culture - Preliminary Blood - Venous - Lab Draw NO GROWTH AFTER 2 DAYS Anaerobic Blood Culture - Preliminary NO GROWTH AFTER 2 DAYS 08/08/17 05:22 Aerobic Blood Culture - Preliminary Blood - Venous NO GROWTH AFTER 2 DAYS Anaerobic Blood Culture - Preliminary NO GROWTH AFTER 2 DAYS 08/08/17 06:20 Urine Culture - Final Urine, Clean Catch MIXED RENE >100,000 CFU/ML Med Orders - Current: Current Medications Acetaminophen (Tylenol Extra Strength) 1,000 mg PO Q6H PRN PRN Reason: PAIN Last Admin: 08/10/17 08:32 Dose: 1,000 mg Albuterol (Ventolin Hfa) 0 gm INH Q4H PRN PRN Reason: Shortness of Breath Ascorbic Acid (Vitamin C) 1,000 mg PO DAILY [facility] Last Admin: 08/10/17 08:32 Dose: 1,000 mg Aspirin (Aspirin) 81 mg PO DAILY [facility] Last Admin: 08/10/17 08:32 Dose: 81 mg Cyanocobalamin (Vitamin B12) 1,000 mcg PO DAILY [facility] Last Admin: 08/10/17 08:32 Dose: 1,000 mcg Docusate Sodium (Colace) 100 mg PO BID [facility] Last Admin: 08/10/17 09:27 Dose: Not Given Docusate Sodium (Colace) 200 mg PO BID PRN PRN Reason: Constipation Erythromycin (Erythromycin 0.5% Ophth Oint) 0 gm EYEBOTH DAILY [facility] Last Admin: 08/10/17 10:26 Dose: Not Given Erythromycin (Erythromycin 0.5% Ophth Oint) 0 gm EYEBOTH BEDTIME [facility] Fish Oil (Fish Oil) 1 gm PO DAILY [facility] Last Admin: 08/10/17 11:18 Dose: 1 gm Heparin Sodium (Porcine) (Heparin Sodium) 5,000 units SUBCUT Q12H [facility] Last Admin: 08/10/17 06:09 Dose: 5,000 units Lactated Ringer's (Ringers, Lactated) 1,000 mls @ 75 mls/hr IV ASDIRECTED [facility] Last Admin: 08/10/17 08:33 Dose: 75 mls/hr Levothyroxine Sodium (Levothyroxine) 125 mcg PO ACBREAKFAST [facility] Last Admin: 08/10/17 11:21 Dose: 125 mcg Magnesium Hydroxide (Milk Of Magnesia) 30 ml PO Q4H PRN PRN Reason: Constipation Methylprednisolone Sodium Succinate (Solu-Medrol) 40 mg IVPUSH Q6H [facility] Last Admin: 08/10/17 11:18 Dose: 40 mg Metoclopramide HCl (Reglan) 5 mg IVPUSH Q6H PRN PRN Reason: nausea Last Admin: 08/09/17 23:34 Dose: 5 mg Multivitamins/Minerals (Thera M Plus) 1 tab PO DAILY [facility] Last Admin: 08/10/17 11:19 Dose: 1 tab Ondansetron HCl (Zofran) 4 mg IVPUSH Q4H PRN PRN Reason: Nausea Cyclosporine 1 Dose 1 each EYEBOTH DAILY [facility] Last Admin: 08/09/17 08:27 Dose: Not Given Polyethylene Glycol (Miralax) 17 gm PO DAILY PRN PRN Reason: Constipation Last Admin: 08/09/17 11:43 Dose: 17 gm Fluticasone/Salmeterol (Advair Diskus 250-50) 1 puff INH BID [facility] Last Admin: 08/10/17 09:24 Dose: 1 puff Sodium Chloride (Saline Flush) 10 ml FLUSH ASDIRECTED PRN PRN Reason: Keep Vein Open Sodium Chloride (Saline Flush) 2.5 ml FLUSH ASDIRECTED PRN PRN Reason: Keep Vein Open Temazepam (Restoril) 15 mg PO BEDTIME PRN PRN Reason: Sleep Last Admin: 08/10/17 02:27 Dose: 15 mg Discontinued Medications Albuterol (Ventolin Hfa) 0 gm INH Q4H [facility] Last Admin: 08/08/17 15:37 Dose: Not Given Calcium Carbonate (Caltrate 600+D 1500 Mg-400 Units) 1 tab PO DAILY [facility] Enoxaparin Sodium (Lovenox) 40 mg SUBCUT Q24H [facility] Last Admin: 08/09/17 11:30 Dose: 40 mg Lisinopril/HCTZ (Lisinopril-Hctz 10-12.5 Mg) 1 tab PO DAILY [facility] Sodium Chloride (Normal Saline) 1,000 mls @ 75 mls/hr IV ASDIRECTED [facility] Last Admin: 08/08/17 05:22 Dose: 75 mls/hr Acetaminophen 1,000 mg/ Premix 100 mls @ 400 mls/hr IV Q6H PRN PRN Reason: Pain Last Admin: 08/09/17 12:40 Dose: 400 mls/hr Iopamidol (Isovue-370 (76%)) 60 ml IVPUSH ONETIME STA Stop: 08/08/17 07:29 Last Admin: 08/08/17 07:37 Dose: 60 ml Ketorolac Tromethamine (Toradol) 15 mg IVPUSH ONETIME ONE Stop: 08/08/17 05:17 Last Admin: 08/08/17 05:26 Dose: 15 mg Labetalol HCl (Normodyne) 20 mg IVPUSH NOW ONE; Protocol Stop: 08/08/17 17:01 Last Admin: 08/08/17 17:30 Dose: 20 mg Labetalol HCl (Normodyne) 20 mg IVPUSH Q4H PRN; Protocol PRN Reason: Hypertension Last Admin: 08/09/17 20:58 Dose: 20 mg Magnesium Hydroxide (Milk Of Magnesia) 30 ml PO DAILY PRN PRN Reason: constipation Metoclopramide HCl (Reglan) 10 mg IVPUSH Q6H PRN PRN Reason: nausea Last Admin: 08/09/17 08:24 Dose: 10 mg Metoprolol Succinate (Toprol Xl) 50 mg PO DAILY [facility] Mineral Oil (Mineral Oil) 15 ml PO ONETIME ONE Stop: 08/08/17 17:11 Last Admin: 08/08/17 17:33 Dose: 15 ml Mineral Oil (Mineral Oil) 15 ml PO ONETIME ONE Stop: 08/08/17 22:01 Last Admin: 08/08/17 23:10 Dose: 15 ml Mineral Oil (Mineral Oil) 30 ml PO ONETIME ONE Stop: 08/09/17 13:05 Last Admin: 08/09/17 13:56 Dose: 30 ml Ondansetron HCl (Zofran) 4 mg IVPUSH ONETIME ONE Stop: 08/08/17 05:17 Last Admin: 08/08/17 05:26 Dose: 4 mg Pantoprazole Sodium (Protonix Iv) 40 mg IVPUSH NOW ONE Stop: 08/08/17 05:18 Last Admin: 08/08/17 05:26 Dose: 40 mg - Exam Quality Assessment: Supplemental Oxygen General: Alert, Oriented HEENT: Pupils Equal, Pupils Reactive, EOMI Neck: Supple, Trachea Midline Lungs: Clear to Auscultation, Normal Respiratory Effort Cardiovascular: Regular Rate, Regular Rhythm GI/Abdominal Exam: Normal Bowel Sounds (Female) Exam: Normal External Exam, Vaginal Discharge Extremities: Normal Inspection Skin: Warm, Dry Neurological: No New Focal Deficit Psy/Mental Status: Alert, Normal Affect - Problem List & Annotations (1) Constipation due to slow transit SNOMED Code(s): 76197503 Code(s): K59.01 - SLOW TRANSIT CONSTIPATION Status: Acute Current Visit: Yes (2) Abdominal distension SNOMED Code(s): 50269691 Code(s): R14.0 - ABDOMINAL DISTENSION (GASEOUS) Status: Acute Priority: Medium Current Visit: Yes (3) Rectal prolapse SNOMED Code(s): 26069590 Code(s): K62.3 - RECTAL PROLAPSE Status: Acute Priority: Medium Current Visit: Yes (4) Right groin mass SNOMED Code(s): 015759263 Code(s): R19.09 - OTHER INTRA-ABDOMINAL AND PELVIC SWELLING, MASS AND LUMP Status: Acute Priority: Medium Current Visit: Yes (5) Large hiatal hernia SNOMED Code(s): 78444292 Code(s): K44.9 - DIAPHRAGMATIC HERNIA WITHOUT OBSTRUCTION OR GANGRENE Status: Acute Current Visit: Yes (6) Femoral hernia of right side SNOMED Code(s): 75587775 Code(s): K41.90 - UNIL FEMORAL HERNIA, W/O OBST OR GANGRENE, NOT SPCF RECUR Status: Acute Current Visit: Yes (7) Pulmonary emphysema SNOMED Code(s): 85009495 Code(s): J43.9 - EMPHYSEMA, UNSPECIFIED Status: Acute Current Visit: Yes (8) Cachexia SNOMED Code(s): 559892628 Code(s): R64 - CACHEXIA Status: Acute Current Visit: Yes (9) Weight loss, non-intentional SNOMED Code(s): 787645299 Code(s): R63.4 - ABNORMAL WEIGHT LOSS Status: Acute Current Visit: Yes (10) Pancreatic cyst SNOMED Code(s): 63940260 Code(s): K86.2 - CYST OF PANCREAS Status: Acute Current Visit: Yes (11) Gallbladder stone without cholecystitis or obstruction SNOMED Code(s): 181174104 Code(s): K80.20 - CALCULUS OF GALLBLADDER W/O CHOLECYSTITIS W/O OBSTRUCTION Status: Acute Current Visit: Yes (12) Hypertension SNOMED Code(s): 26351812 Code(s): I10 - ESSENTIAL (PRIMARY) HYPERTENSION Status: Acute Current Visit: Yes (13) Abdominal pain SNOMED Code(s): 42820381 Code(s): R10.9 - UNSPECIFIED ABDOMINAL PAIN Status: Acute Current Visit: Yes - Problem List Review Problem List Initiated/Reviewed/Updated: Yes - My Orders Last 24 Hours: My Active Orders 08/09/17 14:15 Acetaminophen [Tylenol Extra Strength] 1,000 mg PO Q6H PRN 08/09/17 14:30 Metoclopramide [Reglan] 5 mg IVPUSH Q6H PRN 08/10/17 06:00 Heparin Sodium 5,000 units SUBCUT Q12H 08/10/17 09:15 methylPREDNISolone Sod Succ [Solu-MEDROL] 40 mg IVPUSH Q6H 08/10/17 09:30 Fish Oil/[place]-3 Fatty Acids [Fish Oil] 1 gm PO DAILY Levothyroxine 125 mcg PO ACBREAKFAST Multivitamins w-Iron/Ca/FA/Min [Thera M Plus] 1 tab PO DAILY 08/10/17 11:15 Communication Order [RC] PER UNIT ROUTINE 08/10/17 21:00 Erythromycin Base [Erythromycin 0.5% Ophth Oint] 0 gm EYEBOTH BEDTIME 08/10/17 Lunch Clear Liquid Diet [DIET] 08/11/17 05:11 CBC W/O DIFF,HEMOGRAM [HEME] AM CMP [COMPREHENSIVE METABOLIC PN,CMP] [CHEM] AM 08/12/17 05:11 CBC W/O DIFF,HEMOGRAM [HEME] AM CMP [COMPREHENSIVE METABOLIC PN,CMP] [CHEM] AM 08/13/17 05:11 CBC W/O DIFF,HEMOGRAM [HEME] AM CMP [COMPREHENSIVE METABOLIC PN,CMP] [CHEM] AM - Plan Plan:: assessment and plan 1) abdominal pain and constipation - resolved- Patient to vbe discharge home with bowel regimen like colace 100 mg po BID to prevent reoccurrence of constipation continue hydration with Ringer lactate at 75 cc /h, antinausea medication, tylenol 1000 mg iv q 6 h prn for pain. 2)Htn c - will d/c calcium blocckers as they can also cause constipation and patient can be started on Lisinopril or BBlockers 3) Cachexia, weight loss- BMI is 15.5 - front desk admin consult , start patient on remeron 15 mg po q hs, periactin 4 mg po daily 4) rectal prolapse - patient rectal prolapse come out as soon as she stands , she needs surgery follow up to consider repair 5)DVT prof -heparin subcutaneous Emphysema_ continue Advair 1 puff inh BID , ventolin neb treatment 2 puffs ing q 4 h prn for sob, wheezing, started on solumedrol 40 mg iv daily to see if she has any improvement in O2 sat. GI prophylaxis - Protonix iv .
[2017-08-10] MEDS ORDERED: Metoprolol Succinate 50 MG Tab.ER PO SCH (14:00)
[2017-08-10] MEDS: CYCLOSPORINE EYEBOTH SCH (14:04)
[2017-08-10] MEDS: methylPREDNISolone Sodium Succinate 40 MG/1 ML SDV IVPUSH SCH ×2 (17:03→22:37)
[2017-08-11] MEDS: Temazepam 15 MG Cap PO PRN (02:18)
[2017-08-11] MEDS: methylPREDNISolone Sodium Succinate 40 MG/1 ML SDV IVPUSH SCH ×2 (04:43→10:27)
[2017-08-11 06:05] LABS: CHLORIDE,CL 103 mmol/L (98-107); SODIUM,NA 136 mmol/L (136-145)
[2017-08-11] MEDS: Heparin Sodium 5,000 Units/ML Vial SUBCUT SCH ×2 (06:28→17:13)
[2017-08-11] MEDS: Levothyroxine 125 MCG Tab PO SCH (06:36)
[2017-08-11] MEDS: Aspirin 81 MG Tab.Chew PO SCH (08:01)
[2017-08-11] MEDS: Docusate Sodium 100 MG Cap PO SCH ×4 (08:01→20:06)
[2017-08-11] MEDS: Ascorbic Acid 500 MG Tab PO SCH (08:01)
[2017-08-11] MEDS: Fish Oil/Omega-3 Fatty Acids 1 Gm Cap PO SCH (08:02)
[2017-08-11] MEDS: Cyanocobalamin (Vitamin B12) 500 MCG Tab PO SCH (08:02)
[2017-08-11] MEDS: Fluticasone/Salmeterol 250-50 MCG Inhalation Powder 14/Diskus INH SCH ×2 (08:02→20:05)
[2017-08-11] MEDS: Multivitamins with Iron/Calcium/Folic Acid/Minerals Tab PO SCH (08:02)
[2017-08-11] MEDS: CYCLOSPORINE EYEBOTH SCH (08:03)
[2017-08-11] MEDS ORDERED: GLUCOSAMINE 500 MG PO SCH (09:00)
[2017-08-11] MEDS: Acetaminophen 500 MG Tab PO PRN (10:27)
[2017-08-11] MEDS: Lactated Ringers 1,000 ML IV SCH (12:10)
[2017-08-11] MEDS: Polyethylene Glycol 3350 Powder 17 GM Packet PO PRN (12:48)
--- NOTE | 2017-08-11 12:55 | PCM.PN ---
- General Info Date of Service: 08/11/17 - Review of Systems Systems Review Comment:: had two large bowel movements yesterday with enemas - Patient Data Vitals - Most Recent: Last Vital Signs Temp 36.6 C 08/11/17 12:00 Pulse 67 08/11/17 12:00 Resp 18 08/11/17 12:00 BP 159/84 H 08/11/17 12:00 Pulse Ox 92 L 08/11/17 12:00 Weight - Most Recent: 41 kg I&O - Last 24 Hours: Intake & Output 08/10/17 08/11/17 08/11/17 22:59 06:59 14:59 Intake Total 2315 690 999 Output Total 450 Balance 1865 690 999 Lab Results Last 24 Hours: Laboratory Results - last 24 hr 08/11/17 08/11/17 Range/Units 05:28 05:28 WBC 3.17 L (4.0-11.0) K/uL RBC 4.47 (4.30-5.90) M/uL Hgb 13.0 (12.0-16.0) g/dL Hct 39.8 (36.0-46.0) % MCV 89.0 (80.0-98.0) fL MCH 29.1 (27.0-32.0) pg MCHC 32.7 (31.0-37.0) g/dL RDW Std Deviation 47.3 (28.0-62.0) fl RDW Coeff of Ellie 15 (11.0-15.0) % Plt Count 208 (150-400) K/uL MPV 9.20 (7.40-12.00) fL Nucleated RBC % 0.0 /100WBC Nucleated RBCs # 0 K/uL Sodium 136 (136-145) mmol/L Potassium 3.8 (3.5-5.1) mmol/L Chloride 103 (98-107) mmol/L Carbon Dioxide 28.8 (21.0-32.0) mmol/L BUN 22 H (7.0-18.0) mg/dL Creatinine 0.7 (0.6-1.0) mg/dL Est Cr Clr Drug Dosing 40.10 mL/min Estimated GFR (MDRD) > 60.0 ml/min Glucose 136 H (74-106) mg/dL Calcium 7.9 L (8.5-10.1) mg/dL Total Bilirubin 0.4 (0.2-1.0) mg/dL AST 25 (15-37) IU/L ALT 13 L (14-63) IU/L Alkaline Phosphatase 64 (46-116) U/L Total Protein 5.8 L (6.4-8.2) g/dL Albumin 2.3 L (3.4-5.0) g/dL Globulin 3.5 (2.0-3.5) g/dL Albumin/Globulin Ratio 0.7 L (1.3-2.8) Justice Results Last 24 Hours: Microbiology 08/08/17 05:34 Aerobic Blood Culture - Preliminary Blood - Venous - Lab Draw NO GROWTH AFTER 3 DAYS Anaerobic Blood Culture - Preliminary NO GROWTH AFTER 3 DAYS 08/08/17 05:22 Aerobic Blood Culture - Preliminary Blood - Venous NO GROWTH AFTER 3 DAYS Anaerobic Blood Culture - Preliminary NO GROWTH AFTER 3 DAYS Med Orders - Current: Current Medications Acetaminophen (Tylenol Extra Strength) 1,000 mg PO Q6H PRN PRN Reason: PAIN Last Admin: 08/11/17 10:27 Dose: 1,000 mg Albuterol (Ventolin Hfa) 0 gm INH Q4H PRN PRN Reason: Shortness of Breath Ascorbic Acid (Vitamin C) 1,000 mg PO DAILY [facility] Last Admin: 08/11/17 08:01 Dose: 1,000 mg Aspirin (Aspirin) 81 mg PO DAILY [facility] Last Admin: 08/11/17 08:01 Dose: 81 mg Cyanocobalamin (Vitamin B12) 1,000 mcg PO DAILY [facility] Last Admin: 08/11/17 08:02 Dose: 1,000 mcg Docusate Sodium (Colace) 100 mg PO BID [facility] Last Admin: 08/11/17 08:01 Dose: 100 mg Docusate Sodium (Colace) 200 mg PO BID PRN PRN Reason: Constipation Docusate Sodium (Colace) 100 mg PO BID [facility] Last Admin: 08/11/17 08:01 Dose: Not Given Erythromycin (Erythromycin 0.5% Ophth Oint) 0 gm EYEBOTH BEDTIME [facility] Last Admin: 08/10/17 20:33 Dose: 1 applic Fish Oil (Fish Oil) 1 gm PO DAILY [facility] Last Admin: 08/11/17 08:02 Dose: 1 gm Heparin Sodium (Porcine) (Heparin Sodium) 5,000 units SUBCUT Q12H [facility] Last Admin: 08/11/17 06:28 Dose: 5,000 units Lactated Ringer's (Ringers, Lactated) 1,000 mls @ 75 mls/hr IV ASDIRECTED [facility] Last Admin: 08/11/17 12:10 Dose: 75 mls/hr Levothyroxine Sodium (Levothyroxine) 125 mcg PO ACBREAKFAST [facility] Last Admin: 08/11/17 06:36 Dose: 125 mcg Magnesium Hydroxide (Milk Of Magnesia) 30 ml PO Q4H PRN PRN Reason: Constipation Metoclopramide HCl (Reglan) 5 mg IVPUSH Q6H PRN PRN Reason: nausea Last Admin: 08/09/17 23:34 Dose: 5 mg Multivitamins/Minerals (Thera M Plus) 1 tab PO DAILY [facility] Last Admin: 08/11/17 08:02 Dose: 1 tab Ondansetron HCl (Zofran) 4 mg IVPUSH Q4H PRN PRN Reason: Nausea Cyclosporine 1 Dose 1 each EYEBOTH DAILY [facility] Last Admin: 08/11/17 08:03 Dose: Not Given Polyethylene Glycol (Miralax) 17 gm PO DAILY PRN PRN Reason: Constipation Last Admin: 08/11/17 12:48 Dose: 17 gm Fluticasone/Salmeterol (Advair Diskus 250-50) 1 puff INH BID [facility] Last Admin: 08/11/17 08:02 Dose: 1 puff Sodium Chloride (Saline Flush) 10 ml FLUSH ASDIRECTED PRN PRN Reason: Keep Vein Open Sodium Chloride (Saline Flush) 2.5 ml FLUSH ASDIRECTED PRN PRN Reason: Keep Vein Open Temazepam (Restoril) 15 mg PO BEDTIME PRN PRN Reason: Sleep Last Admin: 08/11/17 02:18 Dose: 15 mg Discontinued Medications Albuterol (Ventolin Hfa) 0 gm INH Q4H [facility] Last Admin: 08/08/17 15:37 Dose: Not Given Calcium Carbonate (Caltrate 600+D 1500 Mg-400 Units) 1 tab PO DAILY [facility] Enoxaparin Sodium (Lovenox) 40 mg SUBCUT Q24H [facility] Last Admin: 08/09/17 11:30 Dose: 40 mg Erythromycin (Erythromycin 0.5% Ophth Oint) 0 gm EYEBOTH DAILY [facility] Last Admin: 08/10/17 10:26 Dose: Not Given Lisinopril/HCTZ (Lisinopril-Hctz 10-12.5 Mg) 1 tab PO DAILY [facility] Sodium Chloride (Normal Saline) 1,000 mls @ 75 mls/hr IV ASDIRECTED [facility] Last Admin: 08/08/17 05:22 Dose: 75 mls/hr Acetaminophen 1,000 mg/ Premix 100 mls @ 400 mls/hr IV Q6H PRN PRN Reason: Pain Last Admin: 08/09/17 12:40 Dose: 400 mls/hr Iopamidol (Isovue-370 (76%)) 60 ml IVPUSH ONETIME STA Stop: 08/08/17 07:29 Last Admin: 08/08/17 07:37 Dose: 60 ml Ketorolac Tromethamine (Toradol) 15 mg IVPUSH ONETIME ONE Stop: 08/08/17 05:17 Last Admin: 08/08/17 05:26 Dose: 15 mg Labetalol HCl (Normodyne) 20 mg IVPUSH NOW ONE; Protocol Stop: 08/08/17 17:01 Last Admin: 08/08/17 17:30 Dose: 20 mg Labetalol HCl (Normodyne) 20 mg IVPUSH Q4H PRN; Protocol PRN Reason: Hypertension Last Admin: 08/09/17 20:58 Dose: 20 mg Magnesium Hydroxide (Milk Of Magnesia) 30 ml PO DAILY PRN PRN Reason: constipation Methylprednisolone Sodium Succinate (Solu-Medrol) 40 mg IVPUSH Q6H [facility] Last Admin: 08/10/17 11:18 Dose: 40 mg Methylprednisolone Sodium Succinate (Solu-Medrol) 40 mg IVPUSH Q6H [facility] Last Admin: 08/11/17 10:27 Dose: 40 mg Metoclopramide HCl (Reglan) 10 mg IVPUSH Q6H PRN PRN Reason: nausea Last Admin: 08/09/17 08:24 Dose: 10 mg Metoprolol Succinate (Toprol Xl) 50 mg PO DAILY [facility] Mineral Oil (Mineral Oil) 15 ml PO ONETIME ONE Stop: 08/08/17 17:11 Last Admin: 08/08/17 17:33 Dose: 15 ml Mineral Oil (Mineral Oil) 15 ml PO ONETIME ONE Stop: 08/08/17 22:01 Last Admin: 08/08/17 23:10 Dose: 15 ml Mineral Oil (Mineral Oil) 30 ml PO ONETIME ONE Stop: 08/09/17 13:05 Last Admin: 08/09/17 13:56 Dose: 30 ml Ondansetron HCl (Zofran) 4 mg IVPUSH ONETIME ONE Stop: 08/08/17 05:17 Last Admin: 08/08/17 05:26 Dose: 4 mg Pantoprazole Sodium (Protonix Iv) 40 mg IVPUSH NOW ONE Stop: 08/08/17 05:18 Last Admin: 08/08/17 05:26 Dose: 40 mg - Exam General: Alert, Oriented Lungs: Clear to Auscultation, Normal Respiratory Effort Cardiovascular: Regular Rate, Regular Rhythm GI/Abdominal Exam: Soft, Non-Tender, No Distention Extremities: Non-Tender, No Pedal Edema Skin: Warm, Dry, Intact - Problem List Review Problem List Initiated/Reviewed/Updated: Yes - Plan Plan:: 82 yo female admitted ileus/constipation. Improving, will continue soft diet. If patient continues to improve likely discharge home tomorrow.
[2017-08-11] MEDS: Erythromycin Base 0.5% Ophth Oint 1 GM Tube EYEBOTH SCH (20:06)
[2017-08-12] MEDS: Temazepam 15 MG Cap PO PRN (00:52)
[2017-08-12] MEDS: Lactated Ringers 1,000 ML IV SCH (00:53)
[2017-08-12] MEDS: Heparin Sodium 5,000 Units/ML Vial SUBCUT SCH (06:18)
[2017-08-12 06:25] LABS: CHLORIDE,CL 99 mmol/L (98-107); SODIUM,NA 136 mmol/L (136-145)
[2017-08-12] MEDS: Levothyroxine 125 MCG Tab PO SCH (06:35)
--- NOTE | 2017-08-12 07:55 | PCM.DCSUM1 ---
Discharge Summary - Discharge Data Discharge Date: 08/12/17 Discharge Disposition: Home, Self-Care 01 Condition: Good - Patient Summary/Data Consults: Consultations 08/08/17 08:19 Consult to Physician [CONS] Stat 08/08/17 10:40 Consult to Dietary [Consult to [employer]] [CONS] Routine Hospital Course: 82 yo female who was admitted for small bowel obstruction and constipation. She presented with abdominal pain, nausea and vomiting. CT scan was consistent with small bowel obstruction. Dr. Chapa was consulted. She was treated with bowel rest and enemas. With the enemas she did have large bowel movements with resolution of symptoms. Her hydrocodone was discontinued as this was felt contributed to her symptoms. She was discharged home to have follow up with Dr. Chapa. - Patient Instructions Diet: Usual Diet as Tolerated - Discharge Plan Home Medications: Home Meds Aspirin 1 tab PO DAILY 12/03/14 [History] Erythromycin Base [Erythromycin 0.5% Ophth Oint] 1 dose EYEBOTH DAILY 12/03/14 [ History] Levothyroxine 125 mcg PO DAILY 12/03/14 [History] cycloSPORINE [Restasis] 1 dose EYEBOTH DAILY 12/03/14 [History] Fluticasone/Salmeterol [Advair 250-50] 1 puff INH BID 12/31/14 [History] Albuterol [Ventolin HFA] 2 puff INH Q4H 08/08/17 [History] Ascorbic Acid [C-1000] 1,000 mg PO DAILY 08/08/17 [History] Calcium Carbonate/Vitamin D3 [Calcium 600 + Vit D Tablet] 1 each PO DAILY [History] Cyanocobalamin (Vitamin B12) [Vitamin B12] 1,000 mcg PO DAILY 08/08/17 [History] Diltiazem HCl [Cardizem] 60 mg PO QID 08/08/17 [History] Docusate Sodium 100 mg PO BID PRN 08/08/17 [History] Fish Oil/[place]-3 Fatty Acids [Fish Oil 1,000 MG] 1 cap PO DAILY 08/08/17 [ History] Glucosamine [Glucosamine Sulfate] 500 mg PO DAILY 08/08/17 [History] Hydrochlorothiazide 12.5 mg PO DAILY 08/08/17 [History] Multivitamin with Minerals [Multiple Vitamin] 1 tab PO DAILY 08/08/17 [History] Patient Handouts: Small Bowel Obstruction, [id number], Rectal Prolapse, Adult Referrals: Arden Chapa MD [Physician] - Natalia Alonso DO [Primary Care Provider] - - Patient Data Vitals - Most Recent: Last Vital Signs Temp 36.6 C 08/12/17 04:00 Pulse 64 08/12/17 04:00 Resp 18 08/12/17 04:00 BP 181/97 H 08/12/17 04:00 Pulse Ox 91 L 08/12/17 04:00 Weight - Most Recent: 41 kg I&O - Last 24 hours: Intake & Output 08/11/17 08/12/17 08/12/17 22:59 06:59 14:59 Intake Total 650 2867 Output Total 750 1100 Balance -100 1767 Lab Results - Last 24 hrs: Laboratory Results - last 24 hr 08/12/17 08/12/17 Range/Units 05:55 05:55 WBC 7.20 (4.0-11.0) K/uL RBC 5.22 (4.30-5.90) M/uL Hgb 15.6 (12.0-16.0) g/dL Hct 46.4 H (36.0-46.0) % MCV 88.9 (80.0-98.0) fL MCH 29.9 (27.0-32.0) pg MCHC 33.6 (31.0-37.0) g/dL RDW Std Deviation 46.5 (28.0-62.0) fl RDW Coeff of Ellie 14 (11.0-15.0) % Plt Count 236 (150-400) K/uL MPV 9.20 (7.40-12.00) fL Nucleated RBC % 0.0 /100WBC Nucleated RBCs # 0 K/uL Sodium 136 (136-145) mmol/L Potassium 3.5 (3.5-5.1) mmol/L Chloride 99 (98-107) mmol/L Carbon Dioxide 32.4 H (21.0-32.0) mmol/L BUN 16 (7.0-18.0) mg/dL Creatinine 0.7 (0.6-1.0) mg/dL Est Cr Clr Drug Dosing 40.10 mL/min Estimated GFR (MDRD) > 60.0 ml/min Glucose 98 (74-106) mg/dL Calcium 8.4 L (8.5-10.1) mg/dL Total Bilirubin 0.4 (0.2-1.0) mg/dL AST 36 (15-37) IU/L ALT 24 (14-63) IU/L Alkaline Phosphatase 79 (46-116) U/L Total Protein 7.0 (6.4-8.2) g/dL Albumin 2.8 L (3.4-5.0) g/dL Globulin 4.2 H (2.0-3.5) g/dL Albumin/Globulin Ratio 0.7 L (1.3-2.8) CHIVO Results - Last 24 hrs: Microbiology 08/08/17 05:34 Aerobic Blood Culture - Preliminary Blood - Venous - Lab Draw NO GROWTH AFTER 4 DAYS Anaerobic Blood Culture - Preliminary NO GROWTH AFTER 4 DAYS 08/08/17 05:22 Aerobic Blood Culture - Preliminary Blood - Venous NO GROWTH AFTER 4 DAYS Anaerobic Blood Culture - Preliminary NO GROWTH AFTER 4 DAYS Med Orders - Current: Current Medications Acetaminophen (Tylenol Extra Strength) 1,000 mg PO Q6H PRN PRN Reason: PAIN Last Admin: 08/11/17 10:27 Dose: 1,000 mg Albuterol (Ventolin Hfa) 0 gm INH Q4H PRN PRN Reason: Shortness of Breath Ascorbic Acid (Vitamin C) 1,000 mg PO DAILY [facility] Last Admin: 08/11/17 08:01 Dose: 1,000 mg Aspirin (Aspirin) 81 mg PO DAILY [facility] Last Admin: 08/11/17 08:01 Dose: 81 mg Cyanocobalamin (Vitamin B12) 1,000 mcg PO DAILY [facility] Last Admin: 08/11/17 08:02 Dose: 1,000 mcg Docusate Sodium (Colace) 100 mg PO BID [facility] Last Admin: 08/11/17 20:05 Dose: 100 mg Docusate Sodium (Colace) 200 mg PO BID PRN PRN Reason: Constipation Docusate Sodium (Colace) 100 mg PO BID [facility] Last Admin: 08/11/17 20:06 Dose: Not Given Erythromycin (Erythromycin 0.5% Ophth Oint) 0 gm EYEBOTH BEDTIME [facility] Last Admin: 08/11/17 20:06 Dose: 1 applic Fish Oil (Fish Oil) 1 gm PO DAILY [facility] Last Admin: 08/11/17 08:02 Dose: 1 gm Heparin Sodium (Porcine) (Heparin Sodium) 5,000 units SUBCUT Q12H [facility] Last Admin: 08/12/17 06:18 Dose: 5,000 units Levothyroxine Sodium (Levothyroxine) 125 mcg PO ACBREAKFAST [facility] Last Admin: 08/12/17 06:35 Dose: 125 mcg Magnesium Hydroxide (Milk Of Magnesia) 30 ml PO Q4H PRN PRN Reason: Constipation Last Admin: 08/11/17 23:20 Dose: 30 ml Metoclopramide HCl (Reglan) 5 mg IVPUSH Q6H PRN PRN Reason: nausea Last Admin: 08/09/17 23:34 Dose: 5 mg Multivitamins/Minerals (Thera M Plus) 1 tab PO DAILY [facility] Last Admin: 08/11/17 08:02 Dose: 1 tab Ondansetron HCl (Zofran) 4 mg IVPUSH Q4H PRN PRN Reason: Nausea Cyclosporine 1 Dose 1 each EYEBOTH DAILY [facility] Last Admin: 08/11/17 08:03 Dose: Not Given Polyethylene Glycol (Miralax) 17 gm PO DAILY PRN PRN Reason: Constipation Last Admin: 08/11/17 12:48 Dose: 17 gm Fluticasone/Salmeterol (Advair Diskus 250-50) 1 puff INH BID [facility] Last Admin: 08/11/17 20:05 Dose: 1 puff Sodium Chloride (Saline Flush) 10 ml FLUSH ASDIRECTED PRN PRN Reason: Keep Vein Open Sodium Chloride (Saline Flush) 2.5 ml FLUSH ASDIRECTED PRN PRN Reason: Keep Vein Open Temazepam (Restoril) 15 mg PO BEDTIME PRN PRN Reason: Sleep Last Admin: 08/12/17 00:52 Dose: 15 mg Discontinued Medications Albuterol (Ventolin Hfa) 0 gm INH Q4H [facility] Last Admin: 08/08/17 15:37 Dose: Not Given Calcium Carbonate (Caltrate 600+D 1500 Mg-400 Units) 1 tab PO DAILY [facility] Enoxaparin Sodium (Lovenox) 40 mg SUBCUT Q24H [facility] Last Admin: 08/09/17 11:30 Dose: 40 mg Erythromycin (Erythromycin 0.5% Ophth Oint) 0 gm EYEBOTH DAILY [facility] Last Admin: 08/10/17 10:26 Dose: Not Given Lisinopril/HCTZ (Lisinopril-Hctz 10-12.5 Mg) 1 tab PO DAILY [facility] Sodium Chloride (Normal Saline) 1,000 mls @ 75 mls/hr IV ASDIRECTED [facility] Last Admin: 08/08/17 05:22 Dose: 75 mls/hr Lactated Ringer's (Ringers, Lactated) 1,000 mls @ 75 mls/hr IV ASDIRECTED [facility] Last Admin: 08/12/17 00:53 Dose: 75 mls/hr Acetaminophen 1,000 mg/ Premix 100 mls @ 400 mls/hr IV Q6H PRN PRN Reason: Pain Last Admin: 08/09/17 12:40 Dose: 400 mls/hr Iopamidol (Isovue-370 (76%)) 60 ml IVPUSH ONETIME STA Stop: 08/08/17 07:29 Last Admin: 08/08/17 07:37 Dose: 60 ml Ketorolac Tromethamine (Toradol) 15 mg IVPUSH ONETIME ONE Stop: 08/08/17 05:17 Last Admin: 08/08/17 05:26 Dose: 15 mg Labetalol HCl (Normodyne) 20 mg IVPUSH NOW ONE; Protocol Stop: 08/08/17 17:01 Last Admin: 08/08/17 17:30 Dose: 20 mg Labetalol HCl (Normodyne) 20 mg IVPUSH Q4H PRN; Protocol PRN Reason: Hypertension Last Admin: 08/09/17 20:58 Dose: 20 mg Magnesium Hydroxide (Milk Of Magnesia) 30 ml PO DAILY PRN PRN Reason: constipation Methylprednisolone Sodium Succinate (Solu-Medrol) 40 mg IVPUSH Q6H [facility] Last Admin: 08/10/17 11:18 Dose: 40 mg Methylprednisolone Sodium Succinate (Solu-Medrol) 40 mg IVPUSH Q6H [facility] Last Admin: 08/11/17 10:27 Dose: 40 mg Metoclopramide HCl (Reglan) 10 mg IVPUSH Q6H PRN PRN Reason: nausea Last Admin: 08/09/17 08:24 Dose: 10 mg Metoprolol Succinate (Toprol Xl) 50 mg PO DAILY [facility] Mineral Oil (Mineral Oil) 15 ml PO ONETIME ONE Stop: 08/08/17 17:11 Last Admin: 08/08/17 17:33 Dose: 15 ml Mineral Oil (Mineral Oil) 15 ml PO ONETIME ONE Stop: 08/08/17 22:01 Last Admin: 08/08/17 23:10 Dose: 15 ml Mineral Oil (Mineral Oil) 30 ml PO ONETIME ONE Stop: 08/09/17 13:05 Last Admin: 08/09/17 13:56 Dose: 30 ml Ondansetron HCl (Zofran) 4 mg IVPUSH ONETIME ONE Stop: 08/08/17 05:17 Last Admin: 08/08/17 05:26 Dose: 4 mg Pantoprazole Sodium (Protonix Iv) 40 mg IVPUSH NOW ONE Stop: 08/08/17 05:18 Last Admin: 08/08/17 05:26 Dose: 40 mg
[2017-08-12] MEDS: Fluticasone/Salmeterol 250-50 MCG Inhalation Powder 14/Diskus INH SCH (08:51)
[2017-08-12] MEDS: Cyanocobalamin (Vitamin B12) 500 MCG Tab PO SCH (08:58)
[2017-08-12] MEDS: Fish Oil/Omega-3 Fatty Acids 1 Gm Cap PO SCH (08:58)
[2017-08-12] MEDS: Aspirin 81 MG Tab.Chew PO SCH (08:59)
[2017-08-12] MEDS: Docusate Sodium 100 MG Cap PO SCH ×2 (08:59)
[2017-08-12] MEDS: Multivitamins with Iron/Calcium/Folic Acid/Minerals Tab PO SCH (09:00)
[2017-08-12] MEDS: Ascorbic Acid 500 MG Tab PO SCH (09:00)
[2017-08-12] MEDS: CYCLOSPORINE EYEBOTH SCH (09:03)
[2017-08-12] MEDS: Acetaminophen 500 MG Tab PO PRN (09:08)
[2017-08-12 12:00] VITALS: BP 152/88
== END 2017-08-12 15:35 | disposition home or self-care (01) | DRG 389 ==
LOC: MW.ED 04:51 → MW.ICU 08:43 → MW.MS 08-10 16:10
PROVIDERS: ADMIT Internal Medicine; ATTEND Internal Medicine
DX: K56.600 Partial intestinal obstruction, unspecified as to cause (principal); I50.9 Heart failure, unspecified; E03.9 Hypothyroidism, unspecified; K22.4 Dyskinesia of esophagus; K56.609 Unspecified intestinal obstruction, unspecified as to partial versus complete obstruction; M81.0 Age-related osteoporosis without current pathological fracture; M41.9 Scoliosis, unspecified; R64 Cachexia; K86.2 Cyst of pancreas; Z68.1 Body mass index [BMI] 19.9 or less, adult; K59.01 Slow transit constipation; R14.0 Abdominal distension (gaseous); K62.3 Rectal prolapse; K40.90 Unilateral inguinal hernia, without obstruction or gangrene, not specified as recurrent; R19.09 Other intra-abdominal and pelvic swelling, mass and lump; K44.9 Diaphragmatic hernia without obstruction or gangrene; K41.90 Unilateral femoral hernia, without obstruction or gangrene, not specified as recurrent; J43.9 Emphysema, unspecified; K80.20 Calculus of gallbladder without cholecystitis without obstruction; I10 Essential (primary) hypertension; K63.89 Other specified diseases of intestine; T50.905A Adverse effect of unspecified drugs, medicaments and biological substances, initial encounter; Z88.8 Allergy status to other drugs, medicaments and biological substances; Z79.899 Other long term (current) drug therapy; Z79.82 Long term (current) use of aspirin; Z99.81 Dependence on supplemental oxygen; Z87.891 Personal history of nicotine dependence
CPT/HCPCS: 36415; 71045; 74177; 80053; 81001; 82150; 83605; 83690; 85025; 87040 ×2; 87086; 96361; 96374; 96375; 99285; C9113; J1885; J2405; J7040; Q9967; 84439; 84443; 85027; 94640; A9270-GY; J1644; J1650; J2765; J2920; J3490; J7120

== ENCOUNTER 2017-08-15 02:31 | Emergency (ER) | payer MEDICARE, OTHER ==
--- NOTE | 2017-08-15 03:10 | EDM.PDOC ---
ED HPI GENERAL MEDICAL PROBLEM - General Chief Complaint: General Stated Complaint: BLEEDING HEMORRHOID Time Seen by Provider: 08/15/17 03:09 Source of Information: Reports: Patient - History of Present Illness INITIAL COMMENTS - FREE TEXT/NARRATIVE: HISTORY AND PHYSICAL: History of present illness: 82-year-old female presenting emergency department with chief complaint of rectal/hemorrhoid bleeding discharged 2 days ago 08/12 for suspected bowel obstruction with past medical history of CHF, hypertension, asthma, hypothyroid , COPD on home oxygen 1-2 L per nasal cannula. Patient states that she was in the emergency department one week ago for similar issue. She does have an appointment to see Dr. Chapa, surgeon, today at 1 PM. She came to the emergency department because she was having increased rectal bleeding. States that there is only minimal pain when she is walking. She has not been using anything at home for the hemorrhoids. She does have some mild abdominal pain but denies any nausea, vomiting, or diarrhea. Patient was admitted on 08/08/17 for suspected small bowel obstruction. As per records she did well and obstruction resolved on its own. She was discharged on 08/12/17 and her pain medications were discontinued secondary to this being part of the etiology of her bowel obstruction. Patient was scheduled to see Dr. Chapa today at 1 PM for follow-up. She does have a history of rectal prolapse surgery some done her by Dr. De León approximately 5 years ago and does see Dr. Galloway as her primary care physician. On CT exam on 08/09/07 there was findings of possible small bowel obstruction as well as possible femoral hernia of the right inguinal region. Indication was a large retro-cardiac hiatal hernia. Patient was initially seen in the ER by Dr. Chapa who was consultative and admitted for bowel obstruction at that time. She does not take a blood thinner other than daily aspirin. -0350 did call and talk with on-call surgeon Dr. Chapa about patient and he is aware of her. States that one week ago she had similar episode when admitted her and after reduction the bleeding did cease. Patient is not a candidate for surgery here and he recommended her going to [place] to see Dr. Carpenter as soon as possible. -0430 After reducing prolapse bleeding has slowed significantly however after patient went to bathroom rectum prolapsed again. There was still venous active bleeding less severe than previous. -[address] Tejeda, surgery [facility], who I advised of the patient. He is in agreement of patient need to be seen urgently and has accepted the patient for transfer for further management. They will go through the emergency room and call surgery as soon as patient is there. Review of systems: As per history of present illness and below otherwise all systems reviewed and negative. Past medical history: As per history of present illness and as reviewed below otherwise noncontributory. Surgical history: As per history of present illness and as reviewed below otherwise noncontributory. Social history: No reported history of drug or alcohol abuse. Family history: As per history of present illness and as reviewed below otherwise noncontributory. Physical exam: HEENT: Atraumatic, normocephalic, pupils reactive, negative for conjunctival pallor or scleral icterus, mucous membranes moist, throat clear, neck supple, nontender, trachea midline. Lungs: Clear to auscultation, breath sounds equal bilaterally, chest nontender. Heart: S1S2, regular, negative for clicks, rubs, or JVD. Abdomen: Soft, nondistended, nontender. Negative for masses or hepatosplenomegaly. Negative for costovertebral tenderness. Pelvis: Stable nontender. Genitourinary: Deferred. Rectal: There is visible rectal prolapse and mild venous bleeding. I was able to reduce prolapse and bleeding did improve. Extremities: Atraumatic, negative for cords or calf pain. Neurovascular unremarkable. Neuro: Awake, alert, oriented. Cranial nerves II through XII unremarkable. Cerebellum unremarkable. Motor and sensory unremarkable throughout. Exam nonfocal. Diagnostics: CBC, CMP, Type and Cross Therapeutics: 1 L NS Impression: Rectal prolapse with acute GI bleed Plan: CBC revealed a hemoglobin of 12.9. CMP was unremarkable. Please see H&P for further information. Secondary to patient's active bleed as well as rectal prolapse patient was transferred to [facility] for further care. Patient has significant comorbidities that may complicate surgery including COPD oxygen dependent, CHF, hypertension, and hypothyroidism. Higher-level care indicated for surgical intervention. This was also agreed by Dr. Chapa, surgery as well as Dr. Tejeda, surgery. 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 Pain Score (Numeric/FACES): 10 - Related Data Allergies Allergy/AdvReac Type Severity Reaction Status Date / Time azithromycin Allergy Anaphylactic Verified 08/15/17 02:46 Shock codeine Allergy Other Verified 08/15/17 02:46 Home Meds: Home Meds Aspirin 1 tab PO DAILY 12/03/14 [History] Erythromycin Base [Erythromycin 0.5% Ophth Oint] 1 dose EYEBOTH DAILY 12/03/14 [ History] Levothyroxine 125 mcg PO DAILY 12/03/14 [History] cycloSPORINE [Restasis] 1 dose EYEBOTH DAILY 12/03/14 [History] Albuterol [Ventolin HFA] 2 puff INH Q4H 08/08/17 [History] Ascorbic Acid [C-1000] 1,000 mg PO DAILY 08/08/17 [History] Calcium Carbonate/Vitamin D3 [Calcium 600 + Vit D Tablet] 1 each PO DAILY [History] Cyanocobalamin (Vitamin B12) [Vitamin B12] 1,000 mcg PO DAILY 08/08/17 [History] Diltiazem HCl [Cardizem] 60 mg PO QID 08/08/17 [History] Docusate Sodium 100 mg PO BID PRN 08/08/17 [History] Fish Oil/[place]-3 Fatty Acids [Fish Oil 1,000 MG] 1 cap PO DAILY 08/08/17 [ History] Hydrochlorothiazide 12.5 mg PO DAILY 08/08/17 [History] Multivitamin with Minerals [Multiple Vitamin] 1 tab PO DAILY 08/08/17 [History] Past Medical History HEENT History: Reports: Impaired Vision Cardiovascular History: Reports: Arrhythmia, Heart Failure, Hypertension Other Cardiovascular History: Palpitations. ACS. 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: Musculoskeletal History: Reports: None Neurological History: Reports: None Psychiatric History: Reports: None Endocrine/Metabolic History: Reports: None Hematologic History: Reports: None Immunologic History: Reports: None Oncologic (Cancer) History: Reports: None Dermatologic History: Reports: None - Infectious Disease History Infectious Disease History: Reports: Measles - Past Surgical History Head Surgeries/Procedures: Reports: None Other GI Surgeries/Procedures: Rectal Surgery Social & Family History - Family History Family Medical History: Noncontributory - Tobacco Use Smoking Status *Q: Former Smoker Used Tobacco, but Quit: No - Caffeine Use Caffeine Use: Reports: Coffee - Recreational Drug Use Recreational Drug Use: No ED ROS GENERAL - Review of Systems Review Of Systems: See Below ED EXAM, GENERAL - Physical Exam Exam: See Below Course - Vital Signs Last Recorded V/S: Last Vital Signs Temp 98.2 F 08/15/17 04:44 Pulse 78 08/15/17 04:44 Resp 16 08/15/17 04:44 BP 172/85 H 08/15/17 04:44 Pulse Ox 92 L 08/15/17 04:44 - Orders/Labs/Meds Labs: Laboratory Tests 08/15/17 08/15/17 Range/Units 03:35 03:35 WBC 7.51 (4.0-11.0) K/uL RBC 4.33 (4.30-5.90) M/uL Hgb 12.9 (12.0-16.0) g/dL Hct 38.5 (36.0-46.0) % MCV 88.9 (80.0-98.0) fL MCH 29.8 (27.0-32.0) pg MCHC 33.5 (31.0-37.0) g/dL RDW Std Deviation 47.7 (28.0-62.0) fl RDW Coeff of Ellie 15 (11.0-15.0) % Plt Count 218 (150-400) K/uL MPV 9.20 (7.40-12.00) fL Neut % (Auto) 71.5 (48.0-80.0) % Lymph % (Auto) 17.0 (16.0-40.0) % [place] % (Auto) 8.7 (0.0-15.0) % Eos % (Auto) 2.7 (0.0-7.0) % Baso % (Auto) 0.1 (0.0-1.5) % Neut # (Auto) 5.4 (1.4-5.7) K/uL Lymph # (Auto) 1.3 (0.6-2.4) K/uL [place] # (Auto) 0.7 (0.0-0.8) K/uL Eos # (Auto) 0.2 (0.0-0.7) K/uL Baso # (Auto) 0.0 (0.0-0.1) K/uL Nucleated RBC % 0.0 /100WBC Nucleated RBCs # 0 K/uL Sodium 131 L (136-145) mmol/L Potassium 3.6 (3.5-5.1) mmol/L Chloride 96 L (98-107) mmol/L Carbon Dioxide 28.8 (21.0-32.0) mmol/L BUN 19 H (7.0-18.0) mg/dL Creatinine 0.7 (0.6-1.0) mg/dL Est Cr Clr Drug Dosing 39.49 mL/min Estimated GFR (MDRD) > 60.0 ml/min Glucose 105 (74-106) mg/dL Calcium 7.8 L (8.5-10.1) mg/dL Total Bilirubin 0.4 (0.2-1.0) mg/dL AST 34 (15-37) IU/L ALT 26 (14-63) IU/L Alkaline Phosphatase 82 (46-116) U/L Total Protein 6.4 (6.4-8.2) g/dL Albumin 2.9 L (3.4-5.0) g/dL Globulin 3.5 (2.0-3.5) g/dL Albumin/Globulin Ratio 0.8 L (1.3-2.8) Meds: Medications Discontinued Medications Generic Name Dose Route Start Last Admin Trade Name Freq PRN Reason Stop Dose Admin Sodium Chloride 1,000 mls @ 999 mls/hr 08/15/17 03:35 08/15/17 03:38 Normal Saline IV 08/15/17 04:35 999 mls/hr STAT ONE Administration Departure - Departure Time of Disposition: 05:23 Disposition: DC/Tfer to Other 70 Condition: Fair Clinical Impression: Rectal bleeding - Discharge Information Referrals: Natalia Alonso DO [Primary Care Provider] - Forms: ED Department Discharge
[2017-08-15] MEDS ORDERED: Sodium Chloride 0.9% 1,000 ML IV ONE (03:35)
[2017-08-15 04:09] LABS: CHLORIDE,CL 96 mmol/L (98-107); SODIUM,NA 131 mmol/L (136-145)
[2017-08-15 05:21] VITALS: BP 199/99
== END 2017-08-15 06:09 | disposition other institution (70) ==
LOC: MW.ED 02:31
DX: K92.2 Gastrointestinal hemorrhage, unspecified (principal); K62.3 Rectal prolapse; I50.9 Heart failure, unspecified; I10 Essential (primary) hypertension; J44.9 Chronic obstructive pulmonary disease, unspecified; Z88.5 Allergy status to narcotic agent; Z79.899 Other long term (current) drug therapy; Z87.891 Personal history of nicotine dependence
CPT/HCPCS: 36415; 80053; 85025; 96360; 99284; J7040

== ENCOUNTER 2017-10-06 00:11 | Emergency (ER) | payer MEDICARE, OTHER ==
[2017-10-06] MEDS ORDERED: Sodium Chloride 0.9% 2.5 ML Syringe FLUSH PRN ×2 (01:06)
[2017-10-06] MEDS ORDERED: Sodium Chloride 0.9% 500 ML IV ONE (01:06)
[2017-10-06] MEDS ORDERED: Sodium Chloride 0.9% 10 ML Syringe FLUSH PRN (01:06)
[2017-10-06] MEDS ORDERED: Morphine 2 MG/ML Syringe IVPUSH ONE ×3 (01:10→06:03)
[2017-10-06 01:20] LABS: CHLORIDE,CL 98 mmol/L (98-107); SODIUM,NA 133 mmol/L (136-145)
--- NOTE | 2017-10-06 03:22 | EDM.PDOC ---
ED HPI GENERAL MEDICAL PROBLEM - General Chief Complaint: Gastrointestinal Problem Stated Complaint: FELLING SICK Time Seen by Provider: 10/06/17 00:14 Source of Information: Reports: Patient, Family History Limitations: Reports: No Limitations - History of Present Illness INITIAL COMMENTS - FREE TEXT/NARRATIVE: HISTORY AND PHYSICAL: History of present illness: 82-year-old female presenting in the emergency department with chief complaint of abdominal pain with associated nausea starting at 1300 today with history of COPD oxygen dependent and cardiac disease. Patient states that she was feeling well up until around 1:00 PM today when she began to have generalized abdominal pain as well as associated nausea without vomiting. States that she has also felt very clammy but denies any significant fever. She denies any blood in her stool or dark tarry stools. States that her last bowel movement was early this a.m. but was not very significant. States that she feels like she's been having problems even passing gas. She has been in the hospital before for small bowel obstructions. This is her major concern. Patient was recently treated in at [facility] for a bleeding hemorrhoid that was surgically repaired. She currently denies any chest pain, palpitations , shortness breath, syncopal episodes, focal neurologic deficits. Patient has a protuberant abdomen which is her baseline standard. She is mildly tender to palpation generally throughout the abdomen., Is soft and nonrigid. Hypoactive sounds. Review of systems: As per history of present illness and below otherwise all systems reviewed and negative. Past medical history: As per history of present illness and as reviewed below otherwise noncontributory. Surgical history: As per history of present illness and as reviewed below otherwise noncontributory. Social history: No reported history of drug or alcohol abuse. Family history: As per history of present illness and as reviewed below otherwise noncontributory. Physical exam: HEENT: Atraumatic, normocephalic, pupils reactive, negative for conjunctival pallor or scleral icterus, mucous membranes moist, throat clear, neck supple, nontender, trachea midline. Lungs: Clear to auscultation, breath sounds equal bilaterally, chest nontender. Heart: S1S2, regular, negative for clicks, rubs, or JVD. Abdomen: Soft, see above H&P mild generalized tenderness on exam. Negative for masses or hepatosplenomegaly. Negative for costovertebral tenderness. Pelvis: Stable nontender. Genitourinary: Deferred. Rectal: Deferred. Extremities: Atraumatic, negative for cords or calf pain. Neurovascular unremarkable. Neuro: Awake, alert, oriented. Cranial nerves II through XII unremarkable. Cerebellum unremarkable. Motor and sensory unremarkable throughout. Exam nonfocal. Diagnostics: CBC, CMP, UA/UC, EKG, CT abdomen and pelvis, lactate, Troponin Therapeutics: 500 mL IV normal saline 1, 2 mg morphine IV 3, 1 g Rocephin IV 1 Impression: Small bowel obstruction Abdominal pain Plan: CBC did show mild leukocytosis of 11.5 and lactate was unremarkable. CT did reveal diffusely dilated small bowel suspicious for small bowel obstruction. There was also right inguinal or femoral hernia likely containing a segment of small bowel. Secondary to patient's complicated medical history I did call Dr. Chapa, surgery, who agreed with initial assessment that patient most likely would be best taken care of at [facility] where she got her previous surgery secondary to her complicated medical history and high operative risk. I did call [facility] and Dr. Solis, surgery, did accept the patient for direct admit for small bowel obstruction. Definitive disposition and diagnosis as appropriate pending reevaluation and review of above. abdomen Pain Score (Numeric/FACES): 10 - Related Data Allergies Allergy/AdvReac Type Severity Reaction Status Date / Time azithromycin Allergy Anaphylactic Verified 10/06/17 00:32 Shock codeine Allergy Other Verified 10/06/17 00:32 Home Meds: Home Meds Aspirin 1 tab PO DAILY 12/03/14 [History] Erythromycin Base [Erythromycin 0.5% Ophth Oint] 1 dose EYEBOTH DAILY 12/03/14 [ History] Levothyroxine 125 mcg PO DAILY 12/03/14 [History] cycloSPORINE [Restasis] 1 dose EYEBOTH DAILY 12/03/14 [History] Albuterol [Ventolin HFA] 2 puff INH Q4H 08/08/17 [History] Ascorbic Acid [C-1000] 1,000 mg PO DAILY 08/08/17 [History] Calcium Carbonate/Vitamin D3 [Calcium 600 + Vit D Tablet] 1 each PO DAILY [History] Cyanocobalamin (Vitamin B12) [Vitamin B12] 1,000 mcg PO DAILY 08/08/17 [History] Diltiazem HCl [Cardizem] 60 mg PO QID 08/08/17 [History] Docusate Sodium 100 mg PO BID PRN 08/08/17 [History] Fish Oil/Bennett-3 Fatty Acids [Fish Oil 1,000 MG] 1 cap PO DAILY 08/08/17 [ History] Multivitamin with Minerals [Multiple Vitamin] 1 tab PO DAILY 08/08/17 [History] hydroCHLOROthiazide [Hydrochlorothiazide] 12.5 mg PO DAILY 08/08/17 [History] Past Medical History HEENT History: Reports: Impaired Vision Cardiovascular History: Reports: Arrhythmia, Heart Failure, Hypertension Other Cardiovascular History: Palpitations. ACS. Emphysema Respiratory History: Reports: Asthma, COPD, Other (See Below) Other Respiratory History: use oxygen at home 1-2L Gastrointestinal History: Reports: Bowel Obstruction, Hiatal Hernia Genitourinary History: Reports: None COORDINATING PRODUCER History: Reports: Musculoskeletal History: Reports: None Neurological History: Reports: None Psychiatric History: Reports: None Endocrine/Metabolic History: Reports: None Hematologic History: Reports: None Immunologic History: Reports: None Oncologic (Cancer) History: Reports: None Dermatologic History: Reports: None - Infectious Disease History Infectious Disease History: Reports: Measles - Past Surgical History Head Surgeries/Procedures: Reports: None Other GI Surgeries/Procedures: Rectal Surgery Social & Family History - Family History Family Medical History: Noncontributory - Tobacco Use Smoking Status *Q: Never Smoker - Caffeine Use Caffeine Use: Reports: Coffee - Recreational Drug Use Recreational Drug Use: No ED ROS GENERAL - Review of Systems Review Of Systems: ROS reveals no pertinent complaints other than HPI. ED EXAM, GENERAL - Physical Exam Exam: See Below Course - Vital Signs Last Recorded V/S: Last Vital Signs Temp 98.3 F 10/06/17 05:17 Pulse 84 10/06/17 05:17 Resp 20 10/06/17 05:17 BP 140/85 10/06/17 05:17 Pulse Ox 95 10/06/17 05:17 - Orders/Labs/Meds Orders: Active Orders 24 hr Category Date Time Status EKG 12 Lead [EKG Documentation Completion] [RC] STAT Care 10/06/17 00:54 Active Abdomen Pelvis wo Cont [CT] Stat Exams 10/06/17 01:07 Taken CULTURE URINE [RM] Stat Lab 10/06/17 02:50 Received UA W/MICROSCOPIC [URIN] Stat Lab 10/06/17 02:50 Ordered Sodium Chloride 0.9% [Saline Flush] Med 10/06/17 01:06 Active 10 ml FLUSH ASDIRECTED PRN Sodium Chloride 0.9% [Saline Flush] Med 10/06/17 01:06 Active 2.5 ml FLUSH ASDIRECTED PRN Sodium Chloride 0.9% [Saline Flush] Med 10/06/17 01:06 Active 2.5 ml FLUSH ASDIRECTED PRN Saline Lock Insert [OM.PC] Stat Oth 10/06/17 01:06 Ordered Medication Orders Sodium Chloride (Saline Flush) 10 ml FLUSH ASDIRECTED PRN PRN Reason: Keep Vein Open Sodium Chloride (Saline Flush) 2.5 ml FLUSH ASDIRECTED PRN PRN Reason: Keep Vein Open Sodium Chloride (Saline Flush) 2.5 ml FLUSH ASDIRECTED PRN PRN Reason: Keep Vein Open Labs: Laboratory Tests 10/06/17 10/06/17 10/06/17 Range/Units 00:45 00:45 02:50 WBC 11.54 H (4.0-11.0) K/uL RBC 4.57 (4.30-5.90) M/uL Hgb 13.0 (12.0-16.0) g/dL Hct 41.4 (36.0-46.0) % MCV 90.6 (80.0-98.0) fL MCH 28.4 (27.0-32.0) pg MCHC 31.4 (31.0-37.0) g/dL RDW Std Deviation 52.9 (28.0-62.0) fl RDW Coeff of Ellie 16 H (11.0-15.0) % Plt Count 437 H (150-400) K/uL MPV 8.40 (7.40-12.00) fL Neut % (Auto) 75.4 (48.0-80.0) % Lymph % (Auto) 18.6 (16.0-40.0) % Dougherty % (Auto) 5.1 (0.0-15.0) % Eos % (Auto) 0.8 (0.0-7.0) % Baso % (Auto) 0.1 (0.0-1.5) % Neut # (Auto) 8.7 H (1.4-5.7) K/uL Lymph # (Auto) 2.2 (0.6-2.4) K/uL Dougherty # (Auto) 0.6 (0.0-0.8) K/uL Eos # (Auto) 0.1 (0.0-0.7) K/uL Baso # (Auto) 0.0 (0.0-0.1) K/uL Lactate (0.20-2.00) mmol/L Sodium 133 L (136-145) mmol/L Potassium 3.8 (3.5-5.1) mmol/L Chloride 98 (98-107) mmol/L Carbon Dioxide 30.1 (21.0-32.0) mmol/L BUN 21 H (7.0-18.0) mg/dL Creatinine 0.7 (0.6-1.0) mg/dL Est Cr Clr Drug Dosing TNP Estimated GFR (MDRD) > 60.0 ml/min Glucose 142 H (74-106) mg/dL Calcium 8.8 (8.5-10.1) mg/dL Total Bilirubin 0.4 (0.2-1.0) mg/dL AST 20 (15-37) IU/L ALT 15 (14-63) IU/L Alkaline Phosphatase 177 H (46-116) U/L Troponin I (0.000-0.056) ng/mL Total Protein 8.2 (6.4-8.2) g/dL Albumin 2.7 L (3.4-5.0) g/dL Globulin 5.5 H (2.0-3.5) g/dL Albumin/Globulin Ratio 0.5 L (1.3-2.8) Lipase 79 (73-393) U/L Urine Color YELLOW Urine Appearance HAZY Urine pH 6.0 (5.0-8.0) Ur Specific [place] 1.020 (1.001-1.035) Urine Protein NEGATIVE (NEGATIVE) mg/dL Urine Glucose (UA) NEGATIVE (NEGATIVE) mg/dL Urine Ketones NEGATIVE (NEGATIVE) mg/dL Urine Occult Blood NEGATIVE (NEGATIVE) Urine Nitrite NEGATIVE (NEGATIVE) Urine Bilirubin NEGATIVE (NEGATIVE) Urine Urobilinogen 1.0 (<2.0) EU/dL Ur Leukocyte Esterase TRACE (NEGATIVE) Urine RBC 1-3 (0-2/HPF) Urine WBC 2-4 (0-5/HPF) Ur Epithelial Cells FEW (NONE-FEW) Urine Bacteria FEW (NEGATIVE) 10/06/17 10/06/17 Range/Units 06:16 06:16 WBC (4.0-11.0) K/uL RBC (4.30-5.90) M/uL Hgb (12.0-16.0) g/dL Hct (36.0-46.0) % MCV (80.0-98.0) fL MCH (27.0-32.0) pg MCHC (31.0-37.0) g/dL RDW Std Deviation (28.0-62.0) fl RDW Coeff of Ellie (11.0-15.0) % Plt Count (150-400) K/uL MPV (7.40-12.00) fL Neut % (Auto) (48.0-80.0) % Lymph % (Auto) (16.0-40.0) % Dougherty % (Auto) (0.0-15.0) % Eos % (Auto) (0.0-7.0) % Baso % (Auto) (0.0-1.5) % Neut # (Auto) (1.4-5.7) K/uL Lymph # (Auto) (0.6-2.4) K/uL Dougherty # (Auto) (0.0-0.8) K/uL Eos # (Auto) (0.0-0.7) K/uL Baso # (Auto) (0.0-0.1) K/uL Lactate 1.0 (0.20-2.00) mmol/L Sodium (136-145) mmol/L Potassium (3.5-5.1) mmol/L Chloride (98-107) mmol/L Carbon Dioxide (21.0-32.0) mmol/L BUN (7.0-18.0) mg/dL Creatinine (0.6-1.0) mg/dL Est Cr Clr Drug Dosing Estimated GFR (MDRD) ml/min Glucose (74-106) mg/dL Calcium (8.5-10.1) mg/dL Total Bilirubin (0.2-1.0) mg/dL AST (15-37) IU/L ALT (14-63) IU/L Alkaline Phosphatase (46-116) U/L Troponin I < 0.050 (0.000-0.056) ng/mL Total Protein (6.4-8.2) g/dL Albumin (3.4-5.0) g/dL Globulin (2.0-3.5) g/dL Albumin/Globulin Ratio (1.3-2.8) Lipase (73-393) U/L Urine Color Urine Appearance Urine pH (5.0-8.0) Ur Specific [place] (1.001-1.035) Urine Protein (NEGATIVE) mg/dL Urine Glucose (UA) (NEGATIVE) mg/dL Urine Ketones (NEGATIVE) mg/dL Urine Occult Blood (NEGATIVE) Urine Nitrite (NEGATIVE) Urine Bilirubin (NEGATIVE) Urine Urobilinogen (<2.0) EU/dL Ur Leukocyte Esterase (NEGATIVE) Urine RBC (0-2/HPF) Urine WBC (0-5/HPF) Ur Epithelial Cells (NONE-FEW) Urine Bacteria (NEGATIVE) Meds: Medications Generic Name Dose Route Start Last Admin Trade Name Freq PRN Reason Stop Dose Admin Sodium Chloride 10 ml 10/06/17 01:06 Saline Flush FLUSH ASDIRECTED PRN Keep Vein Open Sodium Chloride 2.5 ml 10/06/17 01:06 Saline Flush FLUSH ASDIRECTED PRN Keep Vein Open Sodium Chloride 2.5 ml 10/06/17 01:06 Saline Flush FLUSH ASDIRECTED PRN Keep Vein Open Discontinued Medications Generic Name Dose Route Start Last Admin Trade Name Freq PRN Reason Stop Dose Admin Sodium Chloride 500 mls @ 999 mls/hr 10/06/17 01:06 10/06/17 01:13 Normal Saline IV 10/06/17 01:36 999 mls/hr .Bolus ONE Administration Ceftriaxone Sodium/Dextrose 1 50 mls @ 100 mls/hr 10/06/17 06:08 10/06/17 06: 18 gm/ Premix IV 10/06/17 06:37 100 mls/hr ONETIME ONE Administration Morphine Sulfate 2 mg 10/06/17 01:10 10/06/17 02:04 Morphine IVPUSH 10/06/17 01:11 2 mg ONETIME ONE Administration Morphine Sulfate 2 mg 10/06/17 03:21 10/06/17 03:29 Morphine IVPUSH 10/06/17 03:22 2 mg ONETIME ONE Administration Morphine Sulfate 2 mg 10/06/17 06:03 10/06/17 06:16 Morphine IVPUSH 10/06/17 06:04 2 mg ONETIME ONE Administration Ondansetron HCl 4 mg 10/06/17 03:33 10/06/17 03:38 Zofran IVPUSH 10/06/17 03:34 4 mg ONETIME ONE Administration Departure - Departure Time of Disposition: 07:06 Disposition: Home, Self-Care 01 Condition: Good Clinical Impression: Small bowel obstruction - Discharge Information Referrals: Natalia Alonso DO [Primary Care Provider] - Forms: ED Department Discharge - My Orders Last 24 Hours: My Active Orders 10/06/17 00:54 EKG 12 Lead [EKG Documentation Completion] [RC] STAT 10/06/17 01:06 Sodium Chloride 0.9% [Saline Flush] 10 ml FLUSH ASDIRECTED PRN Sodium Chloride 0.9% [Saline Flush] 2.5 ml FLUSH ASDIRECTED PRN Sodium Chloride 0.9% [Saline Flush] 2.5 ml FLUSH ASDIRECTED PRN Saline Lock Insert [OM.PC] Stat 10/06/17 01:07 Abdomen Pelvis wo Cont [CT] Stat 10/06/17 02:50 CULTURE URINE [RM] Stat UA W/MICROSCOPIC [URIN] Stat - Assessment/Plan Last 24 Hours: My Active Orders 10/06/17 00:54 EKG 12 Lead [EKG Documentation Completion] [RC] STAT 10/06/17 01:06 Sodium Chloride 0.9% [Saline Flush] 10 ml FLUSH ASDIRECTED PRN Sodium Chloride 0.9% [Saline Flush] 2.5 ml FLUSH ASDIRECTED PRN Sodium Chloride 0.9% [Saline Flush] 2.5 ml FLUSH ASDIRECTED PRN Saline Lock Insert [OM.PC] Stat 10/06/17 01:07 Abdomen Pelvis wo Cont [CT] Stat 10/06/17 02:50 CULTURE URINE [RM] Stat UA W/MICROSCOPIC [URIN] Stat
[2017-10-06] MEDS ORDERED: Ondansetron 4 MG/2 ML SDV IVPUSH ONE (03:33)
[2017-10-06] MEDS ORDERED: cefTRIAXone 1 GM in Premix Bag 1 BAG IV ONE (06:08)
[2017-10-06 08:19] VITALS: BP 150/81
[2017-10-06] MEDS ORDERED: HYDROmorphone 2 MG/ML SDV IVPUSH ONE (08:19)
--- NOTE | 2017-10-07 13:23 | CT ---
EXAM DATE: 10/06/17 PATIENT'S AGE: 82 Patient: NAMAN GRADY Facility: [place], [place] Site . Site : [id number] Study: CT Abdomen/Pelvis WO CONT [id number] 1:43:14 AM Ordering Physician: Jourdan Mayer Final Report: HISTORY: Abdominal pain. Dry heaves. TECHNIQUE: CT abdomen and pelvis without contrast. COMPARISON: CT abdomen pelvis 08/08/2017. FINDINGS: Abdomen: Large hiatal hernia containing nearly the entire stomach. Debris and layering fluid within the stomach. Diffusely dilated, fluid and gas-filled small bowel. Stool throughout the colon which appears redundant. Right inguinal or femoral hernia likely short-segment of small bowel. Probable small fat containing left inguinal hernia. No small bowel pneumatosis. No free intraperitoneal gas. Unenhanced liver and spleen are unremarkable. Pancreas is not well visualized. Gallbladder is distended. Cholelithiasis. Left adrenal gland appears thickened. No renal or ureteral calculi. No hydronephrosis. Small volume free fluid in the abdomen and pelvis. Moderate atherosclerosis. No abdominal aortic aneurysm. Pelvis: Portions of the pelvis are obscured by artifact from left hip arthroplasty hardware. Approximately 3 x 2 x 3.5 cm structure anterior to the left femoral neurovascular bundle is not significantly changed. This may be enlarged inguinal lymph node or possible femoral hernia. Measurement of the density of this structure is confounded by artifact from hip arthroplasty. Musculoskeletal: Left hip arthroplasty. Osteopenia. Degenerative arthrosis of the right hip. Severe lumbar scoliosis. Degenerative changes of the spine and sacroiliac joints. Scattered calcifications in the gluteal soft tissues may be injection granulomas. Lower chest: Emphysema. Coronary artery calcifications. IMPRESSION: 1. Diffusely dilated small bowel, suspect small bowel obstruction. Bowel evaluation is limited by absence of contrast and paucity of intra-abdominal fat. No free intraperitoneal gas. Free fluid in the abdomen and pelvis. 2. Right inguinal or femoral hernia likely containing a segment of small bowel. 3. Large, incompletely imaged hiatal hernia containing most of the stomach. 4. Distended gallbladder with cholelithiasis. Correlate with clinical and laboratory findings of cholecystitis. Please note that all CT scans at this facility use dose modulation, iterative reconstruction, and/or weight-based dosing when appropriate to reduce radiation dose to as low as reasonably achievable. Dictated by Mars Shaw MD @ Oct 06 2017 2:42AM (Electronic Signature) Report Signed by Proxy. MTDD
== END 2017-10-06 08:45 ==
LOC: MW.ED 00:11
DX: K56.609 Unspecified intestinal obstruction, unspecified as to partial versus complete obstruction (principal); J44.9 Chronic obstructive pulmonary disease, unspecified; I11.0 Hypertensive heart disease with heart failure; I50.9 Heart failure, unspecified; Z88.5 Allergy status to narcotic agent; Z88.1 Allergy status to other antibiotic agents; Z79.82 Long term (current) use of aspirin; Z79.899 Other long term (current) drug therapy
CPT/HCPCS: 74176; 80053; 81001; 83605; 83690; 84484; 85025; 87086; 93005; 96361; 96365; 96375; 96376; 99285; J0696; J1170; J2270; J2405; J7040

== ENCOUNTER 2019-10-05 19:03 | Inpatient (IN) | payer MEDICARE, OTHER ==
[2019-10-05] MEDS ORDERED: Sodium Chloride 0.9% 2.5 ML Syringe FLUSH PRN ×2 (19:24)
[2019-10-05] MEDS ORDERED: Sodium Chloride 0.9% 10 ML Syringe FLUSH PRN (19:24)
--- NOTE | 2019-10-05 19:39 | EDM.PDOC ---
ED HPI GENERAL MEDICAL PROBLEM - General Chief Complaint: General Stated Complaint: INFUSION Time Seen by Provider: 10/05/19 19:20 - History of Present Illness INITIAL COMMENTS - FREE TEXT/NARRATIVE: History of present illness: Patient presents for abnormal lab values discovered by her primary care doctor. Patient saw her primary care doctor today after feeling more short of breath than normal and generally weak. It was found that she had an abnormally low hemoglobin at 6.6. She was told to come to the emergency department for further evaluation. There is also some concern about an abnormal EKG the patient states she has had increased shortness of breath with exertion lately and that she attributes this to the discovery of her anemia. She denies any cough fever no chest pain no chest pain none. No leg swelling there is been no leg tenderness. She denies any black or tarry stools she states she does not take any excessive NSAIDs only one baby aspirin a day she states she had some diarrhea over a week ago that had a little bit of bright red blood in it but that cleared up immediately thereafter. Review of systems: As per history of present illness and below otherwise all systems reviewed and negative. Past medical history: As per history of present illness and as reviewed below otherwise noncontributory. Surgical history: As per history of present illness and as reviewed below otherwise noncont ributory. Social history: No reported history of drug or alcohol abuse. Family history: As per history of present illness and as reviewed below otherwise noncontributory. Physical exam: Constitutional: Frail elderly pallorous skin tone. HEENT: Atraumatic, normocephalic, pupils reactive, negative for conjunctival pallor or scleral icterus, mucous membranes moist, throat clear, neck supple, nontender, trachea midline. Lungs: Clear to auscultation, breath sounds equal bilaterally, chest nontender. Heart: S1S2, regular, negative for clicks, rubs, or JVD. Abdomen: Soft, nondistended, nontender. Negative for masses or hepatosplenomegaly. Negative for costovertebral tenderness. Pelvis: Stable nontender. Genitourinary: Deferred. Rectal: There is a fullness to the anterior aspect of the rectal exam the rectal vault is empty Hemoccult positive. Extremities: Atraumatic, negative for cords or calf pain. Neurovascular unremarkable. Neuro: Awake, alert, oriented. Cranial nerves II through XII unremarkable. Cerebellum unremarkable. Motor and sensory unremarkable throughout. Exam nonfocal. Diagnostics: [] Therapeutics: [] Impression: [] Plan: [] Definitive disposition and diagnosis as appropriate pending reevaluation and review of above. - Related Data Allergies Allergy/AdvReac Type Severity Reaction Status Date / Time azithromycin Allergy Anaphylactic Verified 10/06/17 00:32 Shock codeine Allergy Other Verified 10/06/17 00:32 Home Meds: Home Meds Aspirin 1 tab PO DAILY 12/03/14 [History] Erythromycin Base [Erythromycin 0.5% Ophth Oint] 1 dose EYEBOTH DAILY 12/03/14 [History] Levothyroxine 125 mcg PO DAILY 12/03/14 [History] cycloSPORINE [Restasis] 1 dose EYEBOTH DAILY 12/03/14 [History] Albuterol [Ventolin HFA] 2 puff INH Q4H 08/08/17 [History] Ascorbic Acid [C-1000] 1,000 mg PO DAILY 08/08/17 [History] Calcium Carbonate/Vitamin D3 [Calcium 600 + Vit D Tablet] 1 each PO DAILY 08/08/17 [History] Cyanocobalamin (Vitamin B12) [Vitamin B12] 1,000 mcg PO DAILY 08/08/17 [History] Docusate Sodium 100 mg PO BID PRN 08/08/17 [History] Fish Oil/[place]-3 Fatty Acids [Fish Oil 1,000 MG] 1 cap PO DAILY 08/08/17 [History] Multivitamin with Minerals [Multiple Vitamin] 1 tab PO DAILY 08/08/17 [History] dilTIAZem HCL [Cardizem] 60 mg PO QID 08/08/17 [History] hydroCHLOROthiazide [Hydrochlorothiazide] 12.5 mg PO DAILY 08/08/17 [History] Glucosamine [Glucosamine Sulfate] 1 tab PO DAILY 10/05/19 [History] Zinc Gluconate [Zinc] 1 tab PO DAILY 10/05/19 [History] Past Medical History HEENT History: Reports: Impaired Vision Cardiovascular History: Reports: Arrhythmia, Heart Failure, Hypertension Other Cardiovascular History: Palpitations. ACS. Emphysema Respiratory History: Reports: Asthma, COPD, Other (See Below) Other Respiratory History: use oxygen at home 1-2L Gastrointestinal History: Reports: Bowel Obstruction, Hiatal Hernia Genitourinary History: Reports: None [employer] History: Reports: Musculoskeletal History: Reports: None Neurological History: Reports: None Psychiatric History: Reports: None Endocrine/Metabolic History: Reports: None Hematologic History: Reports: None Immunologic History: Reports: None Oncologic (Cancer) History: Reports: None Dermatologic History: Reports: None - Infectious Disease History Infectious Disease History: Reports: Measles - Past Surgical History Head Surgeries/Procedures: Reports: None Other GI Surgeries/Procedures: Rectal Surgery Social & Family History - Family History Family Medical History: Noncontributory - Caffeine Use Caffeine Use: Reports: Coffee ED ROS GENERAL - Review of Systems Review Of Systems: See Below ED EXAM, GENERAL - Physical Exam Exam: See Below EKG INTERPRETATION EKG Interpretation Comments: EKG is normal sinus rhythm [address]-T changes spiked T waves V3 and V4 no ST segment elevation or reciprocal changes noted read and interpreted by me Course - Vital Signs Text/Narrative:: I discussed case with Dr. Palacios at 9:20 PM he will accept the patient. Last Recorded V/S: Last Vital Signs Temp 36.0 C L 10/05/19 21:13 Pulse 68 10/05/19 21:13 Resp 18 10/05/19 21:13 BP 141/65 H 10/05/19 21:13 Pulse Ox 98 10/05/19 21:13 - Orders/Labs/Meds Orders: Active Orders 24 hr Category Date Time Status Patient Status [ADT] Routine ADT 10/05/19 21:14 Active EKG Documentation Completion [RC] STAT Care 10/05/19 19:25 Active CORONAVIRUS COVID-19 CARLA [MOLEC] Stat Lab 10/05/19 20:20 Received PTT,PARTIAL THROMBOPLSTIN TIME [COAG] Stat Lab 10/05/19 19:46 Received RED BLOOD CELLS LP [BBK] Stat Lab 10/05/19 19:46 Results TYPE AND SCREEN [BBK] Stat Lab 10/05/19 19:46 Results Sodium Chloride 0.9% [Saline Flush] Med 10/05/19 19:24 Active 10 ml FLUSH ASDIRECTED PRN Sodium Chloride 0.9% [Saline Flush] Med 10/05/19 19:24 Active 2.5 ml FLUSH ASDIRECTED PRN Sodium Chloride 0.9% [Saline Flush] Med 10/05/19 19:24 Active 2.5 ml FLUSH ASDIRECTED PRN Saline Lock Insert [OM.PC] Stat Oth 10/05/19 19:24 Ordered Transfuse Red Blood Cells [COMM] Stat Ot 10/05/19 19:26 Ordered Medication Orders Sodium Chloride (Saline Flush) 10 ml FLUSH ASDIRECTED PRN PRN Reason: Keep Vein Open Last Admin: 10/05/19 21:15 Dose: 10 ml Documented by: CLAY Sodium Chloride (Saline Flush) 2.5 ml FLUSH ASDIRECTED PRN PRN Reason: Keep Vein Open Last Admin: 10/05/19 21:15 Dose: 2.5 ml Documented by: CLAY Sodium Chloride (Saline Flush) 2.5 ml FLUSH ASDIRECTED PRN PRN Reason: Keep Vein Open Last Admin: 10/05/19 21:15 Dose: 2.5 ml Documented by: CLAY Labs: Laboratory Tests 10/05/19 10/05/19 10/05/19 Range/Units 19:46 19:46 19:46 WBC 9.76 (4.0-11.0) K/uL RBC 3.45 L (4.30-5.90) M/uL Hgb 6.0 L (12.0-16.0) g/dL Hct 22.4 L (36.0-46.0) % MCV 64.9 L (80.0-98.0) fL MCH 17.4 L (27.0-32.0) pg MCHC 26.8 L (31.0-37.0) g/dL RDW Std Deviation 46.7 (28.0-62.0) fl RDW Coeff of Ellie 20 H (11.0-15.0) % Plt Count 394 (150-400) K/uL MPV 8.20 (7.40-12.00) fL Neut % (Auto) 75.5 (48.0-80.0) % Lymph % (Auto) 13.5 L (16.0-40.0) % [place] % (Auto) 9.3 (0.0-15.0) % Eos % (Auto) 1.3 (0.0-7.0) % Baso % (Auto) 0.4 (0.0-1.5) % Neut # (Auto) 7.4 H (1.4-5.7) K/uL Lymph # (Auto) 1.3 (0.6-2.4) K/uL [place] # (Auto) 0.9 H (0.0-0.8) K/uL Eos # (Auto) 0.1 (0.0-0.7) K/uL Baso # (Auto) 0.0 (0.0-0.1) K/uL Nucleated RBC % 0.0 /100WBC Nucleated RBCs # 0 K/uL INR 0.97 Sodium 134 L (136-145) mmol/L Potassium 4.4 (3.5-5.1) mmol/L Chloride 99 (98-107) mmol/L Carbon Dioxide 26.8 (21.0-32.0) mmol/L BUN 31 H (7.0-18.0) mg/dL Creatinine 0.9 (0.6-1.0) mg/dL Est Cr Clr Drug Dosing 27.99 mL/min Estimated GFR (MDRD) 59.7 ml/min Glucose 100 (74-106) mg/dL Calcium 8.5 (8.5-10.1) mg/dL Total Bilirubin 0.3 (0.2-1.0) mg/dL AST 21 (15-37) IU/L ALT 13 L (14-63) IU/L Alkaline Phosphatase 84 (46-116) U/L Troponin I < 0.050 (0.000-0.056) ng/mL B-Natriuretic Peptide (<100) PG/ML Total Protein 7.8 (6.4-8.2) g/dL Albumin 3.4 (3.4-5.0) g/dL Globulin 4.4 H (2.6-4.0) g/dL Albumin/Globulin Ratio 0.8 L (0.9-1.6) Blood Type Antibody Screen Crossmatch 10/05/19 10/05/19 Range/Units 19:46 19:46 WBC (4.0-11.0) K/uL RBC (4.30-5.90) M/uL Hgb (12.0-16.0) g/dL Hct (36.0-46.0) % MCV (80.0-98.0) fL MCH (27.0-32.0) pg MCHC (31.0-37.0) g/dL RDW Std Deviation (28.0-62.0) fl RDW Coeff of Ellie (11.0-15.0) % Plt Count (150-400) K/uL MPV (7.40-12.00) fL Neut % (Auto) (48.0-80.0) % Lymph % (Auto) (16.0-40.0) % [place] % (Auto) (0.0-15.0) % Eos % (Auto) (0.0-7.0) % Baso % (Auto) (0.0-1.5) % Neut # (Auto) (1.4-5.7) K/uL Lymph # (Auto) (0.6-2.4) K/uL [place] # (Auto) (0.0-0.8) K/uL Eos # (Auto) (0.0-0.7) K/uL Baso # (Auto) (0.0-0.1) K/uL Nucleated RBC % /100WBC Nucleated RBCs # K/uL INR Sodium (136-145) mmol/L Potassium (3.5-5.1) mmol/L Chloride (98-107) mmol/L Carbon Dioxide (21.0-32.0) mmol/L BUN (7.0-18.0) mg/dL Creatinine (0.6-1.0) mg/dL Est Cr Clr Drug Dosing mL/min Estimated GFR (MDRD) ml/min Glucose (74-106) mg/dL Calcium (8.5-10.1) mg/dL Total Bilirubin (0.2-1.0) mg/dL AST (15-37) IU/L ALT (14-63) IU/L Alkaline Phosphatase (46-116) U/L Troponin I (0.000-0.056) ng/mL B-Natriuretic Peptide 517 H (<100) PG/ML Total Protein (6.4-8.2) g/dL Albumin (3.4-5.0) g/dL Globulin (2.6-4.0) g/dL Albumin/Globulin Ratio (0.9-1.6) Blood Type O POSITIVE Antibody Screen NEGATIVE Crossmatch See Detail Meds: Medications Generic Name Dose Route Start Last Admin Trade Name Freq PRN Reason Stop Dose Admin Sodium Chloride 10 ml 10/05/19 19:24 10/05/19 21:15 Saline Flush FLUSH 10 ml ASDIRECTED PRN Administration Keep Vein Open Sodium Chloride 2.5 ml 10/05/19 19:24 10/05/19 21:15 Saline Flush FLUSH 2.5 ml ASDIRECTED PRN Administration Keep Vein Open Sodium Chloride 2.5 ml 10/05/19 19:24 10/05/19 21:15 Saline Flush FLUSH 2.5 ml ASDIRECTED PRN Administration Keep Vein Open Discontinued Medications Generic Name Dose Route Start Last Admin Trade Name Freq PRN Reason Stop Dose Admin Pantoprazole Sodium 80 mg/ 20 mls @ 420 mls/hr 10/05/19 21:10 10/05/19 21:15 Sodium Chloride IVPUSH 10/05/19 21:12 420 mls/hr ONETIME ONE Administration Departure - Departure Time of Disposition: 21:20 Disposition: Admitted As Inpatient 66 Condition: Good Clinical Impression: GI bleed - Discharge Information *PRESCRIPTION DRUG MONITORING PROGRAM REVIEWED*: Not Applicable Referrals: Natalia Alonso DO [Primary Care Provider] - Forms: ED Department Discharge Sepsis Event Note (ED) - Evaluation Sepsis Screening Result: No Definite Risk - Focused Exam Vital Signs: Vital Signs Temp Pulse Resp BP Pulse Ox 10/05/19 21:13 36.0 C L 68 18 141/65 H 98 10/05/19 19:26 36.2 C 70 20 124/54 L 93 L - My Orders Last 24 Hours: My Active Orders 10/05/19 19:24 Sodium Chloride 0.9% [Saline Flush] 10 ml FLUSH ASDIRECTED PRN Sodium Chloride 0.9% [Saline Flush] 2.5 ml FLUSH ASDIRECTED PRN Sodium Chloride 0.9% [Saline Flush] 2.5 ml FLUSH ASDIRECTED PRN Saline Lock Insert [OM.PC] Stat 10/05/19 19:25 EKG Documentation Completion [RC] STAT 10/05/19 19:26 Transfuse Red Blood Cells [COMM] Stat 10/05/19 19:46 PTT,PARTIAL THROMBOPLSTIN TIME [COAG] Stat RED BLOOD CELLS LP [BBK] Stat TYPE AND SCREEN [BBK] Stat 10/05/19 20:20 CORONAVIRUS COVID-19 CARLA [MOLEC] Stat 10/05/19 21:14 Patient Status [ADT] Routine - Assessment/Plan Last 24 Hours: My Active Orders 10/05/19 19:24 Sodium Chloride 0.9% [Saline Flush] 10 ml FLUSH ASDIRECTED PRN Sodium Chloride 0.9% [Saline Flush] 2.5 ml FLUSH ASDIRECTED PRN Sodium Chloride 0.9% [Saline Flush] 2.5 ml FLUSH ASDIRECTED PRN Saline Lock Insert [OM.PC] Stat 10/05/19 19:25 EKG Documentation Completion [RC] STAT 10/05/19 19:26 Transfuse Red Blood Cells [COMM] Stat 10/05/19 19:46 PTT,PARTIAL THROMBOPLSTIN TIME [COAG] Stat RED BLOOD CELLS LP [BBK] Stat TYPE AND SCREEN [BBK] Stat 10/05/19 20:20 CORONAVIRUS COVID-19 CARLA [MOLEC] Stat 10/05/19 21:14 Patient Status [ADT] Routine
[2019-10-05 20:18] LABS: BLOOD UREA NITROGEN,BUN 31 mg/dL (7.0-18.0); CARBON DIOXIDE,CO2 26.8 mmol/L (21.0-32.0); CHLORIDE,CL 99 mmol/L (98-107); GLUCOSE RANDOM 100 mg/dL (74-106); POTASSIUM,K 4.4 mmol/L (3.5-5.1); SODIUM,NA 134 mmol/L (136-145)
--- NOTE | 2019-10-05 20:22 | CR ---
Chest: Portable view of the chest was obtained. Comparison: Prior chest x-ray of 08/08/17. Increased density is noted within the right perihilar region within the mid and right lower lung. Mild increased density is also seen within the left lung base. Heart is enlarged. Chronic rotator cuff tears are seen within both shoulders. Osteopenia is present. Impression: 1. Areas of increased density as described above. Please correlate if patient has infectious symptoms for findings to represent multifocal pneumonia. 2. Mild cardiomegaly. 3. Other findings which are nonacute as described above. Diagnostic code #3 This report was dictated in MDT
[2019-10-05] MEDS ORDERED: Pantoprazole 80 MG in Sodium Chloride 0.9% 20 ML IVPUSH ONE (21:10)
--- NOTE | 2019-10-05 23:20 | PCM.HP.2 ---
H&P History of Present Illness - General Date of Service: 10/05/19 Admit Problem/Dx: Admission Diagnosis/Problem Admission Diagnosis/Problem Anemia - History of Present Illness Initial Comments - Free Text/Narative: 84 yo female with pmh of asthma who three weeks ago reported diarrhea with some red blood within it. She states since then she has been short of breath with exertion, with generalized weakness. She was seen by Dr. Walker who [facility] today as she thought she looked pale. She was noted to have a low Hgb and sent to the ED. In the ED she was noted to have a Hgb of 6. - Related Data Allergies/Adverse Reactions: Allergies Allergy/AdvReac Type Severity Reaction Status Date / Time azithromycin Allergy Anaphylactic Verified 10/05/19 22:40 Shock codeine Allergy Other Verified 10/05/19 22:40 Home Medications: Home Meds Aspirin 1 tab PO DAILY 12/03/14 [History] Erythromycin Base [Erythromycin 0.5% Ophth Oint] 1 dose EYEBOTH DAILY 12/03/14 [History] Levothyroxine 125 mcg PO DAILY 12/03/14 [History] cycloSPORINE [Restasis] 1 dose EYEBOTH DAILY 12/03/14 [History] Albuterol [Ventolin HFA] 2 puff INH Q4H 08/08/17 [History] Ascorbic Acid [C-1000] 1,000 mg PO DAILY 08/08/17 [History] Calcium Carbonate/Vitamin D3 [Calcium 600 + Vit D Tablet] 1 each PO DAILY 08/08/17 [History] Cyanocobalamin (Vitamin B12) [Vitamin B12] 1,000 mcg PO DAILY 08/08/17 [History] Docusate Sodium 100 mg PO BID PRN 08/08/17 [History] Fish Oil/[place]-3 Fatty Acids [Fish Oil 1,000 MG] 1 cap PO DAILY 08/08/17 [History] Multivitamin with Minerals [Multiple Vitamin] 1 tab PO DAILY 08/08/17 [History] dilTIAZem HCL [Cardizem] 60 mg PO QID 08/08/17 [History] hydroCHLOROthiazide [Hydrochlorothiazide] 12.5 mg PO DAILY 08/08/17 [History] Glucosamine [Glucosamine Sulfate] 1 tab PO DAILY 10/05/19 [History] Zinc Gluconate [Zinc] 1 tab PO DAILY 10/05/19 [History] Ferrous Sulfate 324 mg PO BIDMEALS #60 tab.ec 10/06/19 [Rx] Fluticasone Propion/Salmeterol [Fluticasone-Salmeterol 250-50] 1 inh INH BID 10/06/19 [History] Hydrocodone/Acetaminophen [Hydrocodone-Acetamin 5-300 mg] 7.5 - 300 mg PO Q6H 10/06/19 [History] Naloxegol Oxalate [Movantik] 25 mg PO DAILY 10/06/19 [History] Nystatin [Nystatin Oral Syringe] 2 ml PO QID 10/06/19 [History] Omeprazole 40 mg PO BID #60 tab 10/06/19 [Rx] Past Medical History HEENT History: Reports: Impaired Vision Cardiovascular History: Reports: Arrhythmia, Heart Failure, Hypertension Other Cardiovascular History: Palpitations. ACS. Emphysema Respiratory History: Reports: Asthma, COPD, Other (See Below) Other Respiratory History: use oxygen at home 2-4L Gastrointestinal History: Reports: Bowel Obstruction, Hemorrhoids, Hiatal Hernia Genitourinary History: Reports: None [employer] History: Reports: Musculoskeletal History: Reports: None Other Musculoskeletal History: fx to R leg, THRA Right Neurological History: Reports: None Psychiatric History: Reports: None Endocrine/Metabolic History: Reports: Hypothyroidism Hematologic History: Reports: Blood Transfusion(s) Immunologic History: Reports: None Oncologic (Cancer) History: Reports: None Dermatologic History: Reports: None - Infectious Disease History Infectious Disease History: Reports: Measles - Past Surgical History Head Surgeries/Procedures: Reports: None Other GI Surgeries/Procedures: Rectal Surgery for Hemorrhoids in 2018 or 2019, patient can't recall Social & Family History - Family History Family Medical History: Noncontributory - Tobacco Use Smoking Status *Q: Never Smoker Second Hand Smoke Exposure: No - Caffeine Use Caffeine Use: Reports: Coffee - Recreational Drug Use Recreational Drug Use: No H&P Review of Systems - Review of Systems: Review Of Systems: Comprehensive ROS is negative, except as noted in HPI. Exam - Exam Exam: See Below - Vital Signs Vital Signs: Last Vital Signs Temp 37.1 C 10/05/19 22:30 Pulse 73 10/05/19 22:30 Resp 18 10/05/19 22:30 BP 190/82 H 10/05/19 22:30 Pulse Ox 97 10/05/19 22:30 Weight: 38.51 kg - Exam General: Alert, Oriented HEENT: Mucosa Moist & [place]ck: Supple, Trachea Midline Lungs: Clear to Auscultation, Normal Respiratory Effort Cardiovascular: Regular Rate, Regular Rhythm GI/Abdominal Exam: Normal Bowel Sounds, Soft, Non-Tender Extremities: Non-Tender, No Pedal Edema Skin: Warm, Dry, Intact Neurological: No: Focal Deficit - Patient Data Lab Results Last 24 hrs: Laboratory Results - last 24 hr 10/05/19 10/05/19 10/05/19 Range/Units 19:46 19:46 19:46 WBC 9.76 (4.0-11.0) K/uL RBC 3.45 L (4.30-5.90) M/uL Hgb 6.0 L (12.0-16.0) g/dL Hct 22.4 L (36.0-46.0) % MCV 64.9 L (80.0-98.0) fL MCH 17.4 L (27.0-32.0) pg MCHC 26.8 L (31.0-37.0) g/dL RDW Std Deviation 46.7 (28.0-62.0) fl RDW Coeff of Ellie 20 H (11.0-15.0) % Plt Count 394 (150-400) K/uL MPV 8.20 (7.40-12.00) fL Neut % (Auto) 75.5 (48.0-80.0) % Lymph % (Auto) 13.5 L (16.0-40.0) % [place] % (Auto) 9.3 (0.0-15.0) % Eos % (Auto) 1.3 (0.0-7.0) % Baso % (Auto) 0.4 (0.0-1.5) % Neut # (Auto) 7.4 H (1.4-5.7) K/uL Lymph # (Auto) 1.3 (0.6-2.4) K/uL [place] # (Auto) 0.9 H (0.0-0.8) K/uL Eos # (Auto) 0.1 (0.0-0.7) K/uL Baso # (Auto) 0.0 (0.0-0.1) K/uL Nucleated RBC % 0.0 /100WBC Nucleated RBCs # 0 K/uL Absolute Retic (20-80) K/uL Percent Retic (0.5-1.5) % Immature Retic Fraction % INR 0.97 APTT (18.6-31.3) SEC Sodium 134 L (136-145) mmol/L Potassium 4.4 (3.5-5.1) mmol/L Chloride 99 (98-107) mmol/L Carbon Dioxide 26.8 (21.0-32.0) mmol/L BUN 31 H (7.0-18.0) mg/dL Creatinine 0.9 (0.6-1.0) mg/dL Est Cr Clr Drug Dosing 27.99 mL/min Estimated GFR (MDRD) 59.7 ml/min Glucose 100 (74-106) mg/dL Calcium 8.5 (8.5-10.1) mg/dL Iron (50-175) ug/dL TIBC (250-450) ug/dL % Saturation (20-55) % Transferrin Ferritin (8-252) ng/mL Total Bilirubin 0.3 (0.2-1.0) mg/dL AST 21 (15-37) IU/L ALT 13 L (14-63) IU/L Alkaline Phosphatase 84 (46-116) U/L Troponin I < 0.050 (0.000-0.056) ng/mL B-Natriuretic Peptide (<100) PG/ML Total Protein 7.8 (6.4-8.2) g/dL Albumin 3.4 (3.4-5.0) g/dL Globulin 4.4 H (2.6-4.0) g/dL Albumin/Globulin Ratio 0.8 L (0.9-1.6) SARS Virus RNA (PCR) (NEGATIVE) Blood Type Antibody Screen Crossmatch 10/05/19 10/05/19 10/05/19 Range/Units 19:46 19:46 19:46 WBC (4.0-11.0) K/uL RBC (4.30-5.90) M/uL Hgb (12.0-16.0) g/dL Hct (36.0-46.0) % MCV (80.0-98.0) fL MCH (27.0-32.0) pg MCHC (31.0-37.0) g/dL RDW Std Deviation (28.0-62.0) fl RDW Coeff of Ellie (11.0-15.0) % Plt Count (150-400) K/uL MPV (7.40-12.00) fL Neut % (Auto) (48.0-80.0) % Lymph % (Auto) (16.0-40.0) % [place] % (Auto) (0.0-15.0) % Eos % (Auto) (0.0-7.0) % Baso % (Auto) (0.0-1.5) % Neut # (Auto) (1.4-5.7) K/uL Lymph # (Auto) (0.6-2.4) K/uL [place] # (Auto) (0.0-0.8) K/uL Eos # (Auto) (0.0-0.7) K/uL Baso # (Auto) (0.0-0.1) K/uL Nucleated RBC % /100WBC Nucleated RBCs # K/uL Absolute Retic (20-80) K/uL Percent Retic (0.5-1.5) % Immature Retic Fraction % INR APTT 24.6 (18.6-31.3) SEC Sodium (136-145) mmol/L Potassium (3.5-5.1) mmol/L Chloride (98-107) mmol/L Carbon Dioxide (21.0-32.0) mmol/L BUN (7.0-18.0) mg/dL Creatinine (0.6-1.0) mg/dL Est Cr Clr Drug Dosing mL/min Estimated GFR (MDRD) ml/min Glucose (74-106) mg/dL Calcium (8.5-10.1) mg/dL Iron (50-175) ug/dL TIBC (250-450) ug/dL % Saturation (20-55) % Transferrin Ferritin (8-252) ng/mL Total Bilirubin (0.2-1.0) mg/dL AST (15-37) IU/L ALT (14-63) IU/L Alkaline Phosphatase (46-116) U/L Troponin I (0.000-0.056) ng/mL B-Natriuretic Peptide 517 H (<100) PG/ML Total Protein (6.4-8.2) g/dL Albumin (3.4-5.0) g/dL Globulin (2.6-4.0) g/dL Albumin/Globulin Ratio (0.9-1.6) SARS Virus RNA (PCR) (NEGATIVE) Blood Type O POSITIVE Antibody Screen NEGATIVE Crossmatch See Detail 10/05/19 10/05/19 10/05/19 Range/Units 19:46 19:46 20:20 WBC (4.0-11.0) K/uL RBC 3.47 L (4.30-5.90) M/uL Hgb (12.0-16.0) g/dL Hct (36.0-46.0) % MCV (80.0-98.0) fL MCH (27.0-32.0) pg MCHC (31.0-37.0) g/dL RDW Std Deviation (28.0-62.0) fl RDW Coeff of Ellie (11.0-15.0) % Plt Count (150-400) K/uL MPV (7.40-12.00) fL Neut % (Auto) (48.0-80.0) % Lymph % (Auto) (16.0-40.0) % [place] % (Auto) (0.0-15.0) % Eos % (Auto) (0.0-7.0) % Baso % (Auto) (0.0-1.5) % Neut # (Auto) (1.4-5.7) K/uL Lymph # (Auto) (0.6-2.4) K/uL [place] # (Auto) (0.0-0.8) K/uL Eos # (Auto) (0.0-0.7) K/uL Baso # (Auto) (0.0-0.1) K/uL Nucleated RBC % /100WBC Nucleated RBCs # K/uL Absolute Retic 36.80 (20-80) K/uL Percent Retic 1.1 (0.5-1.5) % Immature Retic Fraction 18 % INR APTT (18.6-31.3) SEC Sodium (136-145) mmol/L Potassium (3.5-5.1) mmol/L Chloride (98-107) mmol/L Carbon Dioxide (21.0-32.0) mmol/L BUN (7.0-18.0) mg/dL Creatinine (0.6-1.0) mg/dL Est Cr Clr Drug Dosing mL/min Estimated GFR (MDRD) ml/min Glucose (74-106) mg/dL Calcium (8.5-10.1) mg/dL Iron 9 L (50-175) ug/dL TIBC 448 (250-450) ug/dL % Saturation 2.01 L (20-55) % Transferrin 313.6 Ferritin 6 L (8-252) ng/mL Total Bilirubin (0.2-1.0) mg/dL AST (15-37) IU/L ALT (14-63) IU/L Alkaline Phosphatase (46-116) U/L Troponin I (0.000-0.056) ng/mL B-Natriuretic Peptide (<100) PG/ML Total Protein (6.4-8.2) g/dL Albumin (3.4-5.0) g/dL Globulin (2.6-4.0) g/dL Albumin/Globulin Ratio (0.9-1.6) SARS Virus RNA (PCR) NEGATIVE (NEGATIVE) Blood Type Antibody Screen Crossmatch Result Diagrams: 10/06/19 15:30 10/06/19 05:43 Sepsis Event Note - Evaluation Sepsis Screening Result: No Definite Risk - Focused Exam Vital Signs: Vital Signs Temp Pulse Resp BP BP Pulse Ox 10/05/19 22:30 37.1 C 73 18 190/82 H 97 10/05/19 21:13 36.0 C L 68 18 141/65 H 98 10/05/19 19:26 36.2 C 70 20 124/54 L 93 L Date Exam was Performed: 10/07/19 Time Exam was Performed: 11:45 Problem List Initiated/Reviewed/Updated: Yes Orders Last 24hrs: Active Orders 24 hr Category Date Time Status Patient Status [ADT] Routine ADT 10/05/19 21:14 Active Antiembolic Devices [RC] PER UNIT ROUTINE Care 10/05/19 23:15 Ordered EKG Documentation Completion [RC] STAT Care 10/05/19 19:25 Active Oxygen Therapy [RC] PRN Care 10/05/19 23:14 Ordered Up ad Raegan [RC] ASDIRECTED Care 10/05/19 23:14 Ordered VTE/DVT Education [RC] PER UNIT ROUTINE Care 10/05/19 23:14 Ordered Vital Signs [RC] Q4H Care 10/05/19 23:14 Ordered Nothing per Oral Now Diet [DIET] Diet 10/05/19 Breakfast Ordered Abdomen Pelvis wo Cont [CT] Stat Exams 10/05/19 22:07 Ordered BASIC METABOLIC PANEL,BMP [CHEM] AM Lab 10/06/19 05:11 Ordered CBC WITH AUTO DIFF [HEME] AM Lab 10/06/19 05:11 Ordered RED BLOOD CELLS LP [BBK] Stat Lab 10/05/19 19:46 Results TYPE AND SCREEN [BBK] Stat Lab 10/05/19 19:46 Results Pantoprazole [ProTONIX IV] 40 mg Med 10/06/19 09:00 Active Sodium Chloride 0.9% [Normal Saline] 10 ml IV BID Sodium Chloride 0.9% [Saline Flush] Med 10/05/19 19:24 Active 10 ml FLUSH ASDIRECTED PRN Sodium Chloride 0.9% [Saline Flush] Med 10/05/19 19:24 Active 2.5 ml FLUSH ASDIRECTED PRN Sodium Chloride 0.9% [Saline Flush] Med 10/05/19 19:24 Active 2.5 ml FLUSH ASDIRECTED PRN Saline Lock Insert [OM.PC] Stat Oth 10/05/19 19:24 Ordered Sequential Compression Device [OM.PC] Per Unit Routine Oth 10/05/19 23:15 Ordered Transfuse Red Blood Cells [COMM] Routine Oth 10/05/19 22:07 Ordered Transfuse Red Blood Cells [COMM] Stat Oth 10/05/19 19:26 Ordered Resuscitation Status Routine Resus Stat 10/05/19 23:14 Ordered Medication Orders Pantoprazole Sodium 40 mg/ (Sodium Chloride) 10 mls @ 300 mls/hr IV BID JACI Sodium Chloride (Saline Flush) 10 ml FLUSH ASDIRECTED PRN PRN Reason: Keep Vein Open Last Admin: 10/05/19 21:15 Dose: 10 ml Documented by: GROTALI Sodium Chloride (Saline Flush) 2.5 ml FLUSH ASDIRECTED PRN PRN Reason: Keep Vein Open Last Admin: 10/05/19 21:15 Dose: 2.5 ml Documented by: GROTALI Sodium Chloride (Saline Flush) 2.5 ml FLUSH ASDIRECTED PRN PRN Reason: Keep Vein Open Last Admin: 10/05/19 21:15 Dose: 2.5 ml Documented by: CLAY Assessment/Plan Comment:: 84 yo female with iron deficiency anemia likely from subacute bleed GI bleed. We will transfuse two units of pRBC. and trend Hgb.
--- NOTE | 2019-10-06 00:27 | CT ---
INDICATION: ANEMIA CT ABDOMEN AND PELVIS WITHOUT CONTRAST TECHNIQUE: Multidetector CT imaging was performed through the abdomen and pelvis without intravenous contrast administration. Coronal and sagittal reconstructions were generated. COMPARISON: 10/06/2017 CT abdomen and pelvis. FINDINGS: Lower chest: Bibasilar subsegmental atelectasis and/or lung scarring, similar to the previous exam. Borderline cardiomegaly. Coronary artery calcifications. Dilation of the ascending aorta measuring 4.2 centimeters in transverse dimension. Liver: Within normal limits. Gallbladder and bile ducts: Cholelithiasis without definite evidence of cholecystitis. No biliary dilation identified. Pancreas: Very poorly visualized due to lack of IV contrast enhancement and diffuse retroperitoneal edema. Spleen: Normal. Adrenals: No nodules or masses. Kidneys, ureters, and urinary bladder: No urinary tract stones identified. No apparent hydronephrosis. Small hypodensity in the right kidney likely represents a small renal cyst. No bladder mass or definite wall thickening. Gastrointestinal tract and abdominal wall: Moderately large hiatal hernia, smaller than on the prior exam. Limited evaluation of the bowel due to diffuse fat edema and lack of IV contrast enhancement. No definite bowel obstruction. Prominent volume of stool throughout the colon suggests constipation. Diffuse subcutaneous edema over the abdomen and flanks. Small right inguinal hernia appears smaller than on the previous exam and contains a small amount of bowel as well as minimal fluid. Vascular structures: Aortoiliac atherosclerotic calcifications. 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 Peritoneum: No free air, abscess, or significant free fluid. Lymph nodes: No pathologically enlarged nodes identified. Reproductive organs: No pelvic masses. Bones: No significant change in marked scoliosis and multilevel lumbar spondylosis. Left hip prosthesis, as before. IMPRESSION: 1. Limited exam due to diffuse fat edema and lack of IV contrast-enhancement. 2. Cholelithiasis without definite evidence of cholecystitis. 3. Probable constipation. 4. Atherosclerosis. 5. Dilated ascending aorta measuring 4.2 centimeters in transverse dimension. 6. Right inguinal hernia containing a short segment of bowel and a small amount of fluid. 7. Nonacute additional findings as detailed above. SHAGUFTA GIFFORD MD [facility] Dictated by Sergio Gifford MD @ 10/06/2019 12:26:22 AM Dictated by: Sergio Gifford MD @ 10/06/2019 00:26:44 (Electronically Signed)
[2019-10-06 06:18] LABS: BLOOD UREA NITROGEN,BUN 21 mg/dL (7.0-18.0); CARBON DIOXIDE,CO2 28.2 mmol/L (21.0-32.0); CHLORIDE,CL 102 mmol/L (98-107); GLUCOSE RANDOM 91 mg/dL (74-106); POTASSIUM,K 4.3 mmol/L (3.5-5.1); SODIUM,NA 136 mmol/L (136-145)
[2019-10-06] MEDS ORDERED: Pantoprazole 40 MG in Sodium Chloride 0.9% 10 ML IV SCH (09:00)
[2019-10-06] MEDS ORDERED: Docusate Sodium 100 MG Cap PO PRN (10:13)
[2019-10-06] MEDS ORDERED: CYCLOSPORINE EYEBOTH SCH (10:15)
[2019-10-06] MEDS ORDERED: Albuterol 8 GM Inhaler INH PRN (10:15)
[2019-10-06] MEDS ORDERED: Diltiazem IR 60 MG Tab PO SCH (12:00)
--- NOTE | 2019-10-06 16:34 | PCM.DCSUM1 ---
Discharge Summary - Hospital Course Brief History: 84 yo female with pmh of asthma who three weeks ago reported diarrhea with some red blood within it. She states since then she has been short of breath with exertion, with generalized weakness. She was seen by Dr. Walker who [facility] today as she thought she looked pale. She was noted to have a low Hgb and sent to the ED. In the ED she was noted to have a Hgb of 6. Diagnosis: Stroke: No - Discharge Data Discharge Date: 10/06/19 Discharge Disposition: Home, Self-Care 01 Condition: Good - Referral to Home Health Primary Care Physician: Natalia Alonso, DO - Patient Summary/Data Hospital Course: Admitting Diagnoses Anemia Suspected subacute GI bleeding Discharge Diagnoses: Subacute GI bleeding Other PMH: Oxygen dependent Asthma COPD Hypothyroidism Yazmin was admitted secondary to anemia likely related to subacute GI bleed. She reports now that she is more constipated and has not had a bloody stool in 3 weeks. She was placed on Protonix 40 mg IV BID and transfused with 2 units PRBCs. Today hgb is 8.1. Feeling much improved and is requesting discharge. Hgb remains stable this afternoon at 8.3. She will be discharged home on Iron 325 mg BID and Increased her Omeprazole to 40 mg BID for 2 weeks. She then she return to normal dose of 20 mg daily. She was instructed to stop taking her Meloxicam due to GI bleeding risks and to stay away from all NSAIDs. She was encouraged to follow up with general surgeon for endoscopy, but she wants to speak with Dr Alonso and will have her place referral. Due to comorbidities, she likely will need to be seen in a larger hospital which I explained to her and she was ok with this. She reports she had hemorrhoidectomy in [place] a couple years ago. She will discharged home today. Counseled on monitoring for blood or black stool s. SHe is to return to the ED or clinic if concerns should arise. - Patient Instructions Diet: Regular Diet as Tolerated Activity: No Strenuous Activities Driving: Do Not Drive Showering/Bathing: May Shower Notify Provider of: Fever, Increased Pain, Swelling and Redness, Drainage, Nausea and/or Vomiting Other/Special Instructions: Return to ED promptly if concerns of bleeding return. STOP Meloxicam. Also, do not take NSAIDs, this includes Celebrex, Ibuprofen, Motrin, Advil, Aleve, Naproxen. - Discharge Plan *PRESCRIPTION DRUG MONITORING PROGRAM REVIEWED*: Not Applicable Prescriptions/Med Rec: Ferrous Sulfate 324 mg PO BIDMEALS #60 tab.ec Omeprazole 40 mg PO BID #60 tab Home Medications: Home Meds Aspirin 1 tab PO DAILY 12/03/14 [History] Erythromycin Base [Erythromycin 0.5% Ophth Oint] 1 dose EYEBOTH DAILY 12/03/14 [History] Levothyroxine 125 mcg PO DAILY 12/03/14 [History] cycloSPORINE [Restasis] 1 dose EYEBOTH DAILY 12/03/14 [History] Albuterol [Ventolin HFA] 2 puff INH Q4H 08/08/17 [History] Ascorbic Acid [C-1000] 1,000 mg PO DAILY 08/08/17 [History] Calcium Carbonate/Vitamin D3 [Calcium 600 + Vit D Tablet] 1 each PO DAILY 08/08/17 [History] Cyanocobalamin (Vitamin B12) [Vitamin B12] 1,000 mcg PO DAILY 08/08/17 [History] Docusate Sodium 100 mg PO BID PRN 08/08/17 [History] Fish Oil/[place]-3 Fatty Acids [Fish Oil 1,000 MG] 1 cap PO DAILY 08/08/17 [History] Multivitamin with Minerals [Multiple Vitamin] 1 tab PO DAILY 08/08/17 [History] dilTIAZem HCL [Cardizem] 60 mg PO QID 08/08/17 [History] hydroCHLOROthiazide [Hydrochlorothiazide] 12.5 mg PO DAILY 08/08/17 [History] Glucosamine [Glucosamine Sulfate] 1 tab PO DAILY 10/05/19 [History] Zinc Gluconate [Zinc] 1 tab PO DAILY 10/05/19 [History] Ferrous Sulfate 324 mg PO BIDMEALS #60 tab.ec 10/06/19 [Rx] Fluticasone Propion/Salmeterol [Fluticasone-Salmeterol 250-50] 1 inh INH BID 10/06/19 [History] Hydrocodone/Acetaminophen [Hydrocodone-Acetamin 5-300 mg] 7.5 - 300 mg PO Q6H 10/06/19 [History] Naloxegol Oxalate [Movantik] 25 mg PO DAILY 10/06/19 [History] Nystatin [Nystatin Oral Syringe] 2 ml PO QID 10/06/19 [History] Omeprazole 40 mg PO BID #60 tab 10/06/19 [Rx] Oxygen Therapy Mode: Nasal Cannula Patient Handouts: Iron tablets, capsules, extended-release tablets, Gastrointestinal Bleeding, [id number], Omeprazole tablets (OTC) Referrals: Natalia Alonso DO [Primary Care Provider] - 10/13/19 9:30 am (Please arrive 15 minutes early to your appointment with your insurance cards, identification and your own facemask.) - Discharge Summary/Plan Comment DC Time >30 min.: No - Patient Data Vitals - Most Recent: Last Vital Signs Temp 99.0 F 10/06/19 12:23 Pulse 73 10/06/19 12:23 Resp 18 10/06/19 12:23 BP 170/86 H 10/06/19 12:23 Pulse Ox 94 L 10/06/19 12:23 Weight - Most Recent: 38.51 kg I&O - Last 24 hours: Intake & Output 10/06/19 10/06/19 10/06/19 06:59 14:59 22:59 Intake Total 294 200 Output Total 700 1000 Balance -406 -800 Lab Results - Last 24 hrs: Laboratory Results - last 24 hr 10/05/19 10/05/19 10/05/19 Range/Units 19:46 19:46 19:46 WBC 9.76 (4.0-11.0) K/uL RBC 3.45 L (4.30-5.90) M/uL Hgb 6.0 L (12.0-16.0) g/dL Hct 22.4 L (36.0-46.0) % MCV 64.9 L (80.0-98.0) fL MCH 17.4 L (27.0-32.0) pg MCHC 26.8 L (31.0-37.0) g/dL RDW Std Deviation 46.7 (28.0-62.0) fl RDW Coeff of Ellie 20 H (11.0-15.0) % Plt Count 394 (150-400) K/uL MPV 8.20 (7.40-12.00) fL Neut % (Auto) 75.5 (48.0-80.0) % Lymph % (Auto) 13.5 L (16.0-40.0) % Gove % (Auto) 9.3 (0.0-15.0) % Eos % (Auto) 1.3 (0.0-7.0) % Baso % (Auto) 0.4 (0.0-1.5) % Neut # (Auto) 7.4 H (1.4-5.7) K/uL Lymph # (Auto) 1.3 (0.6-2.4) K/uL Gove # (Auto) 0.9 H (0.0-0.8) K/uL Eos # (Auto) 0.1 (0.0-0.7) K/uL Baso # (Auto) 0.0 (0.0-0.1) K/uL Nucleated RBC % 0.0 /100WBC Nucleated RBCs # 0 K/uL Absolute Retic (20-80) K/uL Percent Retic (0.5-1.5) % Immature Retic Fraction % INR 0.97 APTT (18.6-31.3) SEC Sodium 134 L (136-145) mmol/L Potassium 4.4 (3.5-5.1) mmol/L Chloride 99 (98-107) mmol/L Carbon Dioxide 26.8 (21.0-32.0) mmol/L BUN 31 H (7.0-18.0) mg/dL Creatinine 0.9 (0.6-1.0) mg/dL Est Cr Clr Drug Dosing 27.99 mL/min Estimated GFR (MDRD) 59.7 ml/min Glucose 100 (74-106) mg/dL Calcium 8.5 (8.5-10.1) mg/dL Iron (50-175) ug/dL TIBC (250-450) ug/dL % Saturation (20-55) % Transferrin Ferritin (8-252) ng/mL Total Bilirubin 0.3 (0.2-1.0) mg/dL AST 21 (15-37) IU/L ALT 13 L (14-63) IU/L Alkaline Phosphatase 84 (46-116) U/L Troponin I < 0.050 (0.000-0.056) ng/mL B-Natriuretic Peptide (<100) PG/ML Total Protein 7.8 (6.4-8.2) g/dL Albumin 3.4 (3.4-5.0) g/dL Globulin 4.4 H (2.6-4.0) g/dL Albumin/Globulin Ratio 0.8 L (0.9-1.6) SARS Virus RNA (PCR) (NEGATIVE) Blood Type Antibody Screen Crossmatch 10/05/19 10/05/19 10/05/19 Range/Units 19:46 19:46 19:46 WBC (4.0-11.0) K/uL RBC (4.30-5.90) M/uL Hgb (12.0-16.0) g/dL Hct (36.0-46.0) % MCV (80.0-98.0) fL MCH (27.0-32.0) pg MCHC (31.0-37.0) g/dL RDW Std Deviation (28.0-62.0) fl RDW Coeff of Ellie (11.0-15.0) % Plt Count (150-400) K/uL MPV (7.40-12.00) fL Neut % (Auto) (48.0-80.0) % Lymph % (Auto) (16.0-40.0) % Gove % (Auto) (0.0-15.0) % Eos % (Auto) (0.0-7.0) % Baso % (Auto) (0.0-1.5) % Neut # (Auto) (1.4-5.7) K/uL Lymph # (Auto) (0.6-2.4) K/uL Gove # (Auto) (0.0-0.8) K/uL Eos # (Auto) (0.0-0.7) K/uL Baso # (Auto) (0.0-0.1) K/uL Nucleated RBC % /100WBC Nucleated RBCs # K/uL Absolute Retic (20-80) K/uL Percent Retic (0.5-1.5) % Immature Retic Fraction % INR APTT 24.6 (18.6-31.3) SEC Sodium (136-145) mmol/L Potassium (3.5-5.1) mmol/L Chloride (98-107) mmol/L Carbon Dioxide (21.0-32.0) mmol/L BUN (7.0-18.0) mg/dL Creatinine (0.6-1.0) mg/dL Est Cr Clr Drug Dosing mL/min Estimated GFR (MDRD) ml/min Glucose (74-106) mg/dL Calcium (8.5-10.1) mg/dL Iron (50-175) ug/dL TIBC (250-450) ug/dL % Saturation (20-55) % Transferrin Ferritin (8-252) ng/mL Total Bilirubin (0.2-1.0) mg/dL AST (15-37) IU/L ALT (14-63) IU/L Alkaline Phosphatase (46-116) U/L Troponin I (0.000-0.056) ng/mL B-Natriuretic Peptide 517 H (<100) PG/ML Total Protein (6.4-8.2) g/dL Albumin (3.4-5.0) g/dL Globulin (2.6-4.0) g/dL Albumin/Globulin Ratio (0.9-1.6) SARS Virus RNA (PCR) (NEGATIVE) Blood Type O POSITIVE Antibody Screen NEGATIVE Crossmatch See Detail 10/05/19 10/05/19 10/05/19 Range/Units 19:46 19:46 20:20 WBC (4.0-11.0) K/uL RBC 3.47 L (4.30-5.90) M/uL Hgb (12.0-16.0) g/dL Hct (36.0-46.0) % MCV (80.0-98.0) fL MCH (27.0-32.0) pg MCHC (31.0-37.0) g/dL RDW Std Deviation (28.0-62.0) fl RDW Coeff of Ellie (11.0-15.0) % Plt Count (150-400) K/uL MPV (7.40-12.00) fL Neut % (Auto) (48.0-80.0) % Lymph % (Auto) (16.0-40.0) % Gove % (Auto) (0.0-15.0) % Eos % (Auto) (0.0-7.0) % Baso % (Auto) (0.0-1.5) % Neut # (Auto) (1.4-5.7) K/uL Lymph # (Auto) (0.6-2.4) K/uL Gove # (Auto) (0.0-0.8) K/uL Eos # (Auto) (0.0-0.7) K/uL Baso # (Auto) (0.0-0.1) K/uL Nucleated RBC % /100WBC Nucleated RBCs # K/uL Absolute Retic 36.80 (20-80) K/uL Percent Retic 1.1 (0.5-1.5) % Immature Retic Fraction 18 % INR APTT (18.6-31.3) SEC Sodium (136-145) mmol/L Potassium (3.5-5.1) mmol/L Chloride (98-107) mmol/L Carbon Dioxide (21.0-32.0) mmol/L BUN (7.0-18.0) mg/dL Creatinine (0.6-1.0) mg/dL Est Cr Clr Drug Dosing mL/min Estimated GFR (MDRD) ml/min Glucose (74-106) mg/dL Calcium (8.5-10.1) mg/dL Iron 9 L (50-175) ug/dL TIBC 448 (250-450) ug/dL % Saturation 2.01 L (20-55) % Transferrin 313.6 Ferritin 6 L (8-252) ng/mL Total Bilirubin (0.2-1.0) mg/dL AST (15-37) IU/L ALT (14-63) IU/L Alkaline Phosphatase (46-116) U/L Troponin I (0.000-0.056) ng/mL B-Natriuretic Peptide (<100) PG/ML Total Protein (6.4-8.2) g/dL Albumin (3.4-5.0) g/dL Globulin (2.6-4.0) g/dL Albumin/Globulin Ratio (0.9-1.6) SARS Virus RNA (PCR) NEGATIVE (NEGATIVE) Blood Type Antibody Screen Crossmatch 10/06/19 10/06/19 10/06/19 Range/Units 05:43 05:43 15:30 WBC 8.30 8.05 (4.0-11.0) K/uL RBC 4.07 L 4.12 L (4.30-5.90) M/uL Hgb 8.1 L 8.3 L (12.0-16.0) g/dL Hct 28.7 L 29.2 L (36.0-46.0) % MCV 70.5 L 70.9 L (80.0-98.0) fL MCH 19.9 L 20.1 L (27.0-32.0) pg MCHC 28.2 L 28.4 L (31.0-37.0) g/dL RDW Std Deviation 60.2 60.1 (28.0-62.0) fl RDW Coeff of Ellie 24 H 23 H (11.0-15.0) % Plt Count 338 345 (150-400) K/uL MPV 8.40 8.60 (7.40-12.00) fL Neut % (Auto) 71.5 72.0 (48.0-80.0) % Lymph % (Auto) 15.7 L 17.5 (16.0-40.0) % Gove % (Auto) 9.3 8.0 (0.0-15.0) % Eos % (Auto) 3.1 2.0 (0.0-7.0) % Baso % (Auto) 0.4 0.5 (0.0-1.5) % Neut # (Auto) 5.9 H 5.8 H (1.4-5.7) K/uL Lymph # (Auto) 1.3 1.4 (0.6-2.4) K/uL Gove # (Auto) 0.8 0.6 (0.0-0.8) K/uL Eos # (Auto) 0.3 0.2 (0.0-0.7) K/uL Baso # (Auto) 0.0 0.0 (0.0-0.1) K/uL Nucleated RBC % 0.0 0.0 /100WBC Nucleated RBCs # 0 0 K/uL Absolute Retic (20-80) K/uL Percent Retic (0.5-1.5) % Immature Retic Fraction % INR APTT (18.6-31.3) SEC Sodium 136 (136-145) mmol/L Potassium 4.3 (3.5-5.1) mmol/L Chloride 102 (98-107) mmol/L Carbon Dioxide 28.2 (21.0-32.0) mmol/L BUN 21 H (7.0-18.0) mg/dL Creatinine 0.6 (0.6-1.0) mg/dL Est Cr Clr Drug Dosing 42.43 mL/min Estimated GFR (MDRD) > 60.0 ml/min Glucose 91 (74-106) mg/dL Calcium 8.4 L (8.5-10.1) mg/dL Iron (50-175) ug/dL TIBC (250-450) ug/dL % Saturation (20-55) % Transferrin Ferritin (8-252) ng/mL Total Bilirubin (0.2-1.0) mg/dL AST (15-37) IU/L ALT (14-63) IU/L Alkaline Phosphatase (46-116) U/L Troponin I (0.000-0.056) ng/mL B-Natriuretic Peptide (<100) PG/ML Total Protein (6.4-8.2) g/dL Albumin (3.4-5.0) g/dL Globulin (2.6-4.0) g/dL Albumin/Globulin Ratio (0.9-1.6) SARS Virus RNA (PCR) (NEGATIVE) Blood Type Antibody Screen Crossmatch Med Orders - Current: Current Medications Albuterol (Ventolin Hfa) 0 gm INH Q4H PRN PRN Reason: Shortness of Breath Diltiazem HCl (Cardizem) 60 mg PO QID [facility] Last Admin: 10/06/19 12:29 Dose: 60 mg Documented by: Docusate Sodium (Colace) 100 mg PO BID PRN PRN Reason: Constipation Hydrochlorothiazide (Hydrochlorothiazide) 12.5 mg PO DAILY [facility] Pantoprazole Sodium 40 mg/ (Sodium Chloride) 10 mls @ 300 mls/hr IV BID [facility] Last Admin: 10/06/19 09:11 Dose: 300 mls/hr Documented by: Levothyroxine Sodium (Levothyroxine) 125 mcg PO ACBREAKFAST [facility] Cyclosporine [ Restasis 0.05%] Ophthalmic Emulsion 1 each EYEBOTH BID [facility] Last Admin: 10/06/19 10:45 Dose: Not Given Documented by: Fluticasone/Salmeterol (Advair Diskus 250-50) 1 puff INH BID [facility] Sodium Chloride (Saline Flush) 10 ml FLUSH ASDIRECTED PRN PRN Reason: Keep Vein Open Last Admin: 10/05/19 21:15 Dose: 10 ml Documented by: Sodium Chloride (Saline Flush) 2.5 ml FLUSH ASDIRECTED PRN PRN Reason: Keep Vein Open Last Admin: 10/05/19 21:15 Dose: 2.5 ml Documented by: Sodium Chloride (Saline Flush) 2.5 ml FLUSH ASDIRECTED PRN PRN Reason: Keep Vein Open Last Admin: 10/05/19 21:15 Dose: 2.5 ml Documented by: Discontinued Medications Pantoprazole Sodium 80 mg/ (Sodium Chloride) 20 mls @ 420 mls/hr IVPUSH ONETIME ONE Stop: 10/05/19 21:12 Last Admin: 10/05/19 21:15 Dose: 420 mls/hr Documented by: - Exam Quality Assessment: Reports: Supplemental Oxygen General: Reports: Alert, Oriented, Cooperative, No Acute Distress Neck: Reports: Supple Lungs: Reports: Clear to Auscultation, Normal Respiratory Effort Cardiovascular: Reports: Regular Rate, Regular Rhythm GI/Abdominal Exam: Normal Bowel Sounds, Soft, Non-Tender Extremities: Normal Inspection, Normal Range of Motion, Non-Tender, No Pedal Edema Wound/Incisions: Reports: Healing Well Neurological: Reports: No New Focal Deficit Psy/Mental Status: Reports: Alert, Normal Affect, Normal Mood
[2019-10-06 18:27] VITALS: BP 137/70; PULSE 64
[2019-10-06] MEDS ORDERED: Fluticasone/Salmeterol 250-50 MCG Inhalation Powder 14/Diskus INH SCH (21:00)
[2019-10-07] MEDS ORDERED: Levothyroxine 125 MCG Tab PO SCH (07:30)
[2019-10-07] MEDS ORDERED: Hydrochlorothiazide 12.5 MG Cap PO SCH (09:00)
== END 2019-10-06 17:30 | disposition home or self-care (01) | DRG 812 ==
LOC: MW.ED 19:03 → MW.MS 21:14
PROVIDERS: ADMIT Internal Medicine; ATTEND Internal Medicine
PROC: 30233N1 Transfusion of Nonautologous Red Blood Cells into Peripheral Vein, Percutaneous Approach (ICD-10-PCS; principal; 2019-10-05)
DX: D62 Acute posthemorrhagic anemia (principal); D64.9 Anemia, unspecified; K92.2 Gastrointestinal hemorrhage, unspecified; E03.9 Hypothyroidism, unspecified; K59.00 Constipation, unspecified; H54.7 Unspecified visual loss; I11.0 Hypertensive heart disease with heart failure; Z20.828 Contact with and (suspected) exposure to other viral communicable diseases; I50.9 Heart failure, unspecified; J43.9 Emphysema, unspecified; K44.9 Diaphragmatic hernia without obstruction or gangrene; Z79.82 Long term (current) use of aspirin; Z99.81 Dependence on supplemental oxygen; Z79.899 Other long term (current) drug therapy; Z79.890 Hormone replacement therapy; Z88.1 Allergy status to other antibiotic agents; Z88.5 Allergy status to narcotic agent
CPT/HCPCS: 36415; 36430; 71045; 71045-26; 74176; 74176-26; 80048; 80053; 82728; 83550; 83880; 84484; 85025; 85045; 85610; 85730; 86850; 86900; 86901; 86920; 86921; 86922; 93005; 99284; 99285-25; A9270-GY; C9113; J7050; P9016; U0002

== ENCOUNTER 2021-01-08 00:35 | Emergency (ER) | payer MEDICARE, OTHER ==
[2021-01-08] MEDS ORDERED: Sodium Chloride 0.9% 2.5 ML Syringe FLUSH PRN (00:56)
[2021-01-08] MEDS ORDERED: Sodium Chloride 0.9% 10 ML Syringe FLUSH PRN (00:56)
[2021-01-08] MEDS ORDERED: Morphine 4 MG/ML Syringe IVPUSH ONE (00:58)
[2021-01-08] MEDS ORDERED: Ondansetron 4 MG/2 ML SDV IVPUSH ONE ×3 (00:58→09:10)
[2021-01-08] MEDS ORDERED: Morphine 2 MG/ML SDV IVPUSH ONE (01:07)
[2021-01-08] MEDS ORDERED: Morphine 4 MG/ML VIAL IVPUSH ONE (01:11)
--- NOTE | 2021-01-08 01:45 | EDM.PDOC ---
<Cosme Briggs - Last Filed: 01/08/21 06:47> ED HPI GENERAL MEDICAL PROBLEM - General Chief Complaint: General Stated Complaint: EMS Time Seen by Provider: 01/08/21 00:41 - History of Present Illness INITIAL COMMENTS - FREE TEXT/NARRATIVE: 85-year-old female with multiple medical problems including chronic hypoxic respiratory failure on just over 4 L nasal cannula at baseline with a history of SBO's requiring surgery in [place] in the past who is presenting with cramping periumbilical abdominal pain and dry heaves starting mid afternoon today. Patient had 2 very small hard bowel movements earlier in the day but no other bowel movements no active vomiting no chest pain no shortness of breath no syncope or near syncope. No fevers. No exacerbating or alleviating factors radiation or other associated symptoms. - Related Data Allergies Allergy/AdvReac Type Severity Reaction Status Date / Time azithromycin Allergy Anaphylactic Verified 01/08/21 00:39 Shock codeine Allergy Other Verified 01/08/21 00:39 Home Meds: Home Meds Aspirin 1 tab PO DAILY 12/03/14 [History] Erythromycin Base [Erythromycin 0.5% Ophth Oint] 1 dose EYEBOTH DAILY 12/03/14 [History] Levothyroxine 125 mcg PO DAILY 12/03/14 [History] cycloSPORINE [Restasis] 1 dose EYEBOTH DAILY 12/03/14 [History] Albuterol [Ventolin HFA] 2 puff INH Q4H 08/08/17 [History] Ascorbic Acid [C-1000] 1,000 mg PO DAILY 08/08/17 [History] Calcium Carbonate/Vitamin D3 [Calcium 600 + Vit D Tablet] 1 each PO DAILY 08/08/17 [History] Cyanocobalamin (Vitamin B12) [Vitamin B12] 1,000 mcg PO DAILY 08/08/17 [History] Docusate Sodium 100 mg PO BID PRN 08/08/17 [History] Fish Oil/[place]-3 Fatty Acids [Fish Oil 1,000 MG] 1 cap PO DAILY 08/08/17 [History] Multivitamin with Minerals [Multiple Vitamin] 1 tab PO DAILY 08/08/17 [History] dilTIAZem HCL [Cardizem] 60 mg PO QID 08/08/17 [History] hydroCHLOROthiazide [Hydrochlorothiazide] 12.5 mg PO DAILY 08/08/17 [History] Glucosamine [Glucosamine Sulfate] 1 tab PO DAILY 10/05/19 [History] Zinc Gluconate [Zinc] 1 tab PO DAILY 10/05/19 [History] Ferrous Sulfate 324 mg PO BIDMEALS #60 tab.ec 10/06/19 [Rx] Fluticasone Propion/Salmeterol [Fluticasone-Salmeterol 250-50] 1 inh INH BID 10/06/19 [History] Hydrocodone/Acetaminophen [HYDROcodone-Acetaminophen 5-300 MG] 7.5 - 300 mg PO Q6H 10/06/19 [History] Naloxegol Oxalate [Movantik] 25 mg PO DAILY 10/06/19 [History] Nystatin [Nystatin Oral Syringe] 2 ml PO QID 10/06/19 [History] Omeprazole 40 mg PO BID #60 tab 10/06/19 [Rx] Past Medical History HEENT History: Reports: Impaired Vision Cardiovascular History: Reports: Arrhythmia, Heart Failure, Hypertension Other Cardiovascular History: Palpitations. ACS. 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: Musculoskeletal History: Reports: None Other Musculoskeletal History: fx to R leg, THRA Right Neurological History: Reports: None Psychiatric History: Reports: None Endocrine/Metabolic History: Reports: Hypothyroidism Hematologic History: Reports: Blood Transfusion(s) Immunologic History: Reports: None Oncologic (Cancer) History: Reports: None Dermatologic History: Reports: None - Infectious Disease History Infectious Disease History: Reports: Measles - Past Surgical History Head Surgeries/Procedures: Reports: None HEENT Surgical History: Reports: Naso-Sinus Surgery, Tonsillectomy Other GI Surgeries/Procedures: Rectal Surgery for Hemorrhoids in 2018 or 2019, patient can't recall Other Musculoskeletal Surgeries/Procedures:: Left Social & Family History - Family History Family Medical History: No Pertinent Family History - Tobacco Use Tobacco Use Status *Q: Never Tobacco User - Caffeine Use Caffeine Use: Reports: Coffee - Recreational Drug Use Recreational Drug Use: No ED ROS GENERAL - Review of Systems Review Of Systems: See Below Free Text/Narrative/Comment: General: No fever. Skin: No rash. Eyes: No vision problems. ENT: No sore throat. Neck: No neck stiffness. Respiratory: No shortness of breath. Cardiac: No chest pain. Gastrointestinal: Per HPI Urinary: No dysuria. Musculoskeletal: No myalgias/arthralgias. Neurologic: No headache. ED EXAM, GENERAL - Physical Exam Exam: See Below Free Text/Narrative:: General Appearance: No acute distress, appears comfortable, cachectic HEENT: Normocephalic/atraumatic, sclera anicteric, mucous membranes moist Neck: Normal range of motion Chest and Lungs: Bilateral breath sounds, clear to auscultation Cardiovascular: Regular rate and rhythm, no murmur Abdomen: Distended but soft diffusely tender no guarding or rebound Back: Normal Musculoskeletal: No edema or tenderness Neurologic: Awake, alert, no obvious deficits, moving all extremities Psychiatric: Appropriate, cooperative #1 Interpretation EKG Date: 01/08/21 Time: 01:43 EKG Interpretation Comments: Sinus rhythm rate of 71 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 ACS considered but felt less likely. 0430: Labs are good, CT with SBO and gastric hiatal hernia. The patient adamantly and repeatedly refuses NG placement. The patient was discussed with Dr. Jimenez and given her past hx is too complex for us to keep here in [place]. Patient was discussed with [facility] as the patient has had prior surgeries there. However, they do not have capacity. Patient also discussed with [facility]. They are also at capacity. They may have discharges today but would not be able to accept the patient. I called and spoke to the [facility] at 0435 and they will work on trying to fi ak a facility for the patient. On additional exam patient does have a palpable mass in the RLQ. It is firm, completely nontender and w/out overlying skin changes, though it is not reducible it does not display any signs that would suggest incarceration. 0700: We con't to await call back from [facility] Regarding placement. Pt given 0.5mg dilaudid for pain. Pt signed out to Dr. Samano pending final disposition. <Daniel Samano - Last Filed: 01/08/21 09:13> Course - Vital Signs Text/Narrative:: Patient signed out to me pending transfer. Patient with a small bowel obstruction. She has nausea and vomiting. She is refusing NG tube at this point. Antibiotics given since she has a white count and also has evidence of a UTI. I spoke to our surgeon, Dr. Jimenez, and thinks that the patient will need a surgery and is concerned about her underlying comorbidities as she is on baseline oxygen and frail. I spoke with Dr. Garner in the emergency department at [facility] who accepts the patient. I spoke to the patient and informed her that she will be transferred for evaluation by surgery at [place] in a facility that is better equipped to care for her in the event that she needs a surgery. Last Recorded V/S: Last Vital Signs Temp 36.8 C 01/08/21 00:40 Pulse 80 01/08/21 08:23 Resp 19 01/08/21 06:41 BP 122/77 01/08/21 08:23 Pulse Ox 96 01/08/21 08:23 - Orders/Labs/Meds Orders: Active Orders 24 hr Category Date Time Status Ondansetron [Zofran] Med 01/08/21 09:10 Once 4 mg IVPUSH ONETIME ONE Sodium Chloride 0.9% [Saline Flush] Med 01/08/21 00:56 Active 10 ml FLUSH ASDIRECTED PRN Sodium Chloride 0.9% [Saline Flush] Med 01/08/21 00:56 Active 2.5 ml FLUSH ASDIRECTED PRN Saline Lock Insert [OM.PC] Stat Oth 01/08/21 00:56 Ordered Medication Orders Sodium Chloride (Sodium Chloride 0.9% 10 Ml Syringe) 10 ml FLUSH ASDIRECTED PRN PRN Reason: Keep Vein Open Last Admin: 01/08/21 01:15 Dose: 10 ml Documented by: CONCEPCION Sodium Chloride (Sodium Chloride 0.9% 2.5 Ml Syringe) 2.5 ml FLUSH ASDIRECTED PRN PRN Reason: Keep Vein Open Last Admin: 01/08/21 01:15 Dose: 2.5 ml Documented by: CONCEPCION Labs: Laboratory Tests 01/08/21 01/08/21 01/08/21 Range/Units 01:15 01:15 01:15 WBC 12.66 H (4.0-11.0) K/uL RBC 4.91 (4.30-5.90) M/uL Hgb 14.7 (12.0-16.0) g/dL Hct 44.7 (36.0-46.0) % MCV 91.0 (80.0-98.0) fL MCH 29.9 (27.0-32.0) pg MCHC 32.9 (31.0-37.0) g/dL RDW Std Deviation 54.1 (28.0-62.0) fl RDW Coeff of Ellie 17 H (11.0-15.0) % Plt Count 260 (150-400) K/uL MPV 8.90 (7.40-12.00) fL Neut % (Auto) 90.1 H (48.0-80.0) % Lymph % (Auto) 3.6 L (16.0-40.0) % [facility] % (Auto) 5.6 (0.0-15.0) % Eos % (Auto) 0.5 (0.0-7.0) % Baso % (Auto) 0.2 (0.0-1.5) % Neut # (Auto) 11.4 H (1.4-5.7) K/uL Lymph # (Auto) 0.5 L (0.6-2.4) K/uL [facility] # (Auto) 0.7 (0.0-0.8) K/uL Eos # (Auto) 0.1 (0.0-0.7) K/uL Baso # (Auto) 0.0 (0.0-0.1) K/uL Nucleated RBC % 0.0 /100WBC Nucleated RBCs # 0 K/uL Sodium 132 L (136-145) mmol/L Potassium 4.7 (3.5-5.1) mmol/L Chloride 96 L (98-107) mmol/L Carbon Dioxide 30.4 (21.0-32.0) mmol/L BUN 24 H (7.0-18.0) mg/dL Creatinine 0.9 (0.6-1.0) mg/dL Est Cr Clr Drug Dosing 27.82 mL/min Estimated GFR (MDRD) 59.5 ml/min Glucose 138 H (74-106) mg/dL Lactic Acid 1.0 (0.4-2.0) mmol/L Calcium 8.8 (8.5-10.1) mg/dL Total Bilirubin 0.5 (0.2-1.0) mg/dL AST 19 (15-37) IU/L ALT 14 (14-63) IU/L Alkaline Phosphatase 100 (46-116) U/L Troponin I < 0.050 (0.000-0.056) ng/mL Total Protein 8.0 (6.4-8.2) g/dL Albumin 3.2 L (3.4-5.0) g/dL Globulin 4.8 H (2.6-4.0) g/dL Albumin/Globulin Ratio 0.7 L (0.9-1.6) Lipase 40 L (73-393) U/L Urine Color Urine Appearance Urine pH (5.0-8.0) Ur Specific [place] (1.001-1.035) Urine Protein (NEGATIVE) mg/dL Urine Glucose (UA) (NEGATIVE) mg/dL Urine Ketones (NEGATIVE) mg/dL Urine Occult Blood (NEGATIVE) Urine Nitrite (NEGATIVE) Urine Bilirubin (NEGATIVE) Urine Ictotest Urine Urobilinogen (<2.0) EU/dL Ur Leukocyte Esterase (NEGATIVE) Urine RBC (0-2/HPF) Urine WBC (0-5/HPF) Ur Epithelial Cells (NONE-FEW) Urine Bacteria (NEGATIVE) Urine Mucus (NONE-MOD) SARS-CoV-2 RNA (CARLA) (NEGATIVE) 01/08/21 01/08/21 Range/Units 01:32 03:52 WBC (4.0-11.0) K/uL RBC (4.30-5.90) M/uL Hgb (12.0-16.0) g/dL Hct (36.0-46.0) % MCV (80.0-98.0) fL MCH (27.0-32.0) pg MCHC (31.0-37.0) g/dL RDW Std Deviation (28.0-62.0) fl RDW Coeff of Ellie (11.0-15.0) % Plt Count (150-400) K/uL MPV (7.40-12.00) fL Neut % (Auto) (48.0-80.0) % Lymph % (Auto) (16.0-40.0) % [facility] % (Auto) (0.0-15.0) % Eos % (Auto) (0.0-7.0) % Baso % (Auto) (0.0-1.5) % Neut # (Auto) (1.4-5.7) K/uL Lymph # (Auto) (0.6-2.4) K/uL [facility] # (Auto) (0.0-0.8) K/uL Eos # (Auto) (0.0-0.7) K/uL Baso # (Auto) (0.0-0.1) K/uL Nucleated RBC % /100WBC Nucleated RBCs # K/uL Sodium (136-145) mmol/L Potassium (3.5-5.1) mmol/L Chloride (98-107) mmol/L Carbon Dioxide (21.0-32.0) mmol/L BUN (7.0-18.0) mg/dL Creatinine (0.6-1.0) mg/dL Est Cr Clr Drug Dosing mL/min Estimated GFR (MDRD) ml/min Glucose (74-106) mg/dL Lactic Acid (0.4-2.0) mmol/L Calcium (8.5-10.1) mg/dL Total Bilirubin (0.2-1.0) mg/dL AST (15-37) IU/L ALT (14-63) IU/L Alkaline Phosphatase (46-116) U/L Troponin I (0.000-0.056) ng/mL Total Protein (6.4-8.2) g/dL Albumin (3.4-5.0) g/dL Globulin (2.6-4.0) g/dL Albumin/Globulin Ratio (0.9-1.6) Lipase (73-393) U/L Urine Color YELLOW Urine Appearance CLOUDY Urine pH 5.5 (5.0-8.0) Ur Specific [place] 1.025 (1.001-1.035) Urine Protein TRACE H (NEGATIVE) mg/dL Urine Glucose (UA) NEGATIVE (NEGATIVE) mg/dL Urine Ketones TRACE H (NEGATIVE) mg/dL Urine Occult Blood TRACE-INTACT H (NEGATIVE) Urine Nitrite NEGATIVE (NEGATIVE) Urine Bilirubin SMALL H (NEGATIVE) Urine Ictotest NEGATIVE Urine Urobilinogen 1.0 (<2.0) EU/dL Ur Leukocyte Esterase SMALL H (NEGATIVE) Urine RBC 3-6 (0-2/HPF) Urine WBC 35-40 (0-5/HPF) Ur Epithelial Cells RARE (NONE-FEW) Urine Bacteria FEW (NEGATIVE) Urine Mucus LIGHT (NONE-MOD) SARS-CoV-2 RNA (CARLA) NEGATIVE (NEGATIVE) Meds: Medications Generic Name Dose Route Start Last Admin Trade Name Marko PRN Reason Stop Dose Admin Sodium Chloride 10 ml 01/08/21 00:56 01/08/21 01:15 Sodium Chloride 0.9% 10 Ml Syringe FLUSH 10 ml ASDIRECTED PRN Administration Keep Vein Open Sodium Chloride 2.5 ml 01/08/21 00:56 01/08/21 01:15 Sodium Chloride 0.9% 2.5 Ml Syringe FLUSH 2.5 ml ASDIRECTED PRN Administration Keep Vein Open Discontinued Medications Generic Name Dose Route Start Last Admin Trade Name Marko PRN Reason Stop Dose Admin Hydromorphone HCl 0.5 mg 01/08/21 06:23 01/08/21 06:31 Hydromorphone 2 Mg/Ml Syringe IVPUSH 01/08/21 06:24 0.5 mg ONETIME ONE Administration Piperacillin Sod/Tazobactam 50 mls @ 100 mls/hr 01/08/21 08:37 01/08/21 08:50 Sod 3.375 gm/ Sodium Chloride IV 01/08/21 09:06 100 mls/hr ONETIME ONE Administration Iopamidol 100 ml 01/08/21 02:10 01/08/21 03:49 Iopamidol 755 Mg/Ml 100 Ml Bottle IVPUSH 01/08/21 02:11 100 ml ONETIME ONE Administration Morphine Sulfate 4 mg 01/08/21 00:58 01/08/21 01:06 Morphine 4 Mg/Ml Syringe IVPUSH 01/08/21 00:59 Not Given ONETIME ONE Morphine Sulfate 4 mg 01/08/21 01:07 01/08/21 01:09 Morphine 2 Mg/Ml Sdv IVPUSH 01/08/21 01:08 Not Given ONETIME ONE Morphine Sulfate 4 mg 01/08/21 01:11 01/08/21 01:15 Morphine 4 Mg/Ml Vial IVPUSH 01/08/21 01:12 4 mg ONETIME ONE Administration Ondansetron HCl 4 mg 01/08/21 00:58 01/08/21 01:14 Ondansetron 4 Mg/2 Ml Sdv IVPUSH 01/08/21 00:59 4 mg ONETIME ONE Administration Ondansetron HCl 4 mg 01/08/21 03:23 01/08/21 03:43 Ondansetron 4 Mg/2 Ml Sdv IVPUSH 01/08/21 03:24 4 mg ONETIME ONE Administration Departure - Departure Time of Disposition: 09:13 Condition: Good, Fair Sepsis Event Note (ED) - Focused Exam Vital Signs: Vital Signs Temp Pulse Resp BP Pulse Ox 01/08/21 08:23 80 122/77 96 01/08/21 08:02 75 137/85 96 01/08/21 07:32 76 142/74 H 95 01/08/21 06:41 73 19 144/80 H 94 L 01/08/21 05:45 75 20 137/80 94 L 01/08/21 05:03 78 20 148/86 H 94 L 01/08/21 03:44 75 20 138/73 89 L 01/08/21 02:42 71 20 126/74 92 L 01/08/21 00:40 36.8 C 72 20 162/91 H 93 L - My Orders Last 24 Hours: My Active Orders 01/08/21 09:10 Ondansetron [Zofran] 4 mg IVPUSH ONETIME ONE - Assessment/Plan Last 24 Hours: My Active Orders 01/08/21 09:10 Ondansetron [Zofran] 4 mg IVPUSH ONETIME ONE
[2021-01-08 01:46] LABS: BLOOD UREA NITROGEN,BUN 24 mg/dL (7.0-18.0); CARBON DIOXIDE,CO2 30.4 mmol/L (21.0-32.0); CHLORIDE,CL 96 mmol/L (98-107); GLUCOSE RANDOM 138 mg/dL (74-106); LIPASE 40 U/L (73-393); POTASSIUM,K 4.7 mmol/L (3.5-5.1); SODIUM,NA 132 mmol/L (136-145)
[2021-01-08] MEDS ORDERED: Iopamidol 755 Mg/ML 100 ML Bottle IVPUSH ONE (02:10)
--- NOTE | 2021-01-08 02:15 | CR ---
INDICATION: Shortness of breath TECHNIQUE: Chest radiograph 1 view COMPARISON: 10/05/2019 FINDINGS: Mediastinum: Overlying right cardiac silhouette there is a rounded gas density measuring 12.5 cm in diameter which may represent a gas-filled gastric hernia. The central pulmonary arteries are enlarged and likely due to pulmonary hypertension. Mild stable cardiomegaly seen. Lung: Both lungs are unremarkable in appearance. No sign of pleural effusion seen. No pneumothorax is identified. Bone and Soft tissue: Severe diffuse osteopenia is present. Bilateral rotator cuff atrophy and tear noted. There are several small bowel loops present in the left upper quadrant with a discernible outer wall, suspicious for pneumoperitoneum. IMPRESSIONS: 1. Overlying right cardiac silhouette there is a rounded gas density measuring 12.5 cm in diameter which may represent a gas-filled gastric hernia. And has increased in size since prior examination. 2. There are several small bowel loops present in the left upper quadrant with a discernible outer wall, suspicious for pneumoperitoneum. Further evaluation with CT abdomen is recommended. 3. The central pulmonary arteries are enlarged and likely due to pulmonary hypertension. Dictated by Frederick Crowell MD @ 01/08/2021 2:13:16 AM Dictated by: Frederick Crowell MD @ 01/08/2021 02:13:21 (Electronically Signed)
--- NOTE | 2021-01-08 04:15 | CT ---
INDICATION: Abdominal pain TECHNIQUE: CT Abdomen and pelvis with i.v. contrast. Coronal and sagittal reformats were obtained. CONTRAST: 100 mL Isovue 370 COMPARISON: None FINDINGS: The sensitivity and specificity of the exam are moderately limited by beam hardening artifacts from scanning with the arms by the patient`s side. Lower chest: A 6 mm calcified granuloma is present in the left lower lobe. Liver: Unremarkable. Spleen: Unremarkable. Pancreas: Unremarkable. Gallbladder: Unremarkable. Kidney: Small right renal cysts are present measuring up to 1 cm. Adrenal: Unremarkable. Bowel: A moderate to large sliding type gastric hiatal hernia (type IV) is present and is distended with an air-fluid level. Gaseous distention of the intra-abdominal stomach is noted. Severe amount of stool is present throughout the colon which may be due to chronic constipation. Fluid-filled dilated small bowel loops are present measuring up to 3.5 cm with decompressed small bowel loops seen in the right lower quadrant. A right inguinal hernia is present containing stool like material within the herniated bowel loop and measures 3.3 cm in diameter. The appendix is not identified. Vascular: Moderate diffuse atherosclerotic calcifications of the abdominal aorta and its tributaries are present. Lymph: Unremarkable. Peritoneum: Unremarkable. No pneumoperitoneum is seen. No significant ascites is noted. Pelvis: Evaluation of the pelvic soft tissues, distal ureters and osseous structures are limited by beam hardening artifacts from the left hip prosthesis. Soft tissue: Severe cachexia is present with absence of the subcutaneous fat. Bone: Severe dextroscoliosis is noted with associated facet arthritis and degenerative disc disease. IMPRESSIONS: 1. Fluid-filled dilated small bowel loops are present measuring up to 3.5 cm with decompressed small bowel loops seen in the right lower quadrant. Findings are likely due to distal small bowel obstruction, possibly secondary to a right inguinal hernia that contains a loop of bowel that has feculent material. 2. A moderate to large sliding type gastric hiatal hernia (type IV) is present and is distended with an air-fluid level. Dictated by Frederick Crowell MD @ 01/08/2021 4:14:20 AM Please note that all CT scans at this facility use dose modulation, iterative reconstruction, and/or weight-based dosing when appropriate to reduce radiation dose to as low as reasonably achievable. Dictated by: Frederick Crowell MD @ 01/08/2021 04:14:39 (Electronically Signed)
[2021-01-08] MEDS ORDERED: HYDROmorphone 2 MG/ML Syringe IVPUSH ONE (06:23)
[2021-01-08] MEDS ORDERED: Piperacillin/Tazobactam 3.375 GM in Sodium Chloride 0.9% 50 ML IV ONE (08:37)
[2021-01-08 09:42] VITALS: BP 154/85; PULSE 85
== END 2021-01-08 09:45 ==
LOC: MW.ED 00:35
DX: K56.609 Unspecified intestinal obstruction, unspecified as to partial versus complete obstruction (principal); I11.0 Hypertensive heart disease with heart failure; I50.9 Heart failure, unspecified; J43.9 Emphysema, unspecified; E03.9 Hypothyroidism, unspecified; Z88.1 Allergy status to other antibiotic agents; Z88.5 Allergy status to narcotic agent; Z79.82 Long term (current) use of aspirin; Z79.899 Other long term (current) drug therapy; Z20.822 Contact with and (suspected) exposure to COVID-19
CPT/HCPCS: 36415; 71045; 74177; 80053; 81001; 83605; 83690; 84484; 85025; 93005; 96365; 96375; 96376; 99285; J1170; J2270; J2405; J2543; Q9967; U0002

== ENCOUNTER 2021-02-28 03:20 | Inpatient (IN) | payer MEDICARE, OTHER ==
[2021-02-28] MEDS ORDERED: Sodium Chloride 0.9% 10 ML Syringe FLUSH PRN (03:35)
[2021-02-28] MEDS ORDERED: Sodium Chloride 0.9% 2.5 ML Syringe FLUSH PRN (03:35)
--- NOTE | 2021-02-28 03:41 | EDM.PDOC ---
ED HPI GENERAL MEDICAL PROBLEM - General Chief Complaint: Gastrointestinal Problem Stated Complaint: ABDOMINAL PAIN Time Seen by Provider: 02/28/21 03:35 Source of Information: Reports: Patient History Limitations: Reports: No Limitations - History of Present Illness INITIAL COMMENTS - FREE TEXT/NARRATIVE: 85-year-old female with history of CHF, COPD on 4L nasal cannula, hiatal hernia, inguinal hernia, bowel obstruction presents with abdominal pain after eating at 2 PM yesterday. Abdominal pain is diffuse, described as bloating sensation, moderate, with no alleviating or exacerbating factors. She does admit to feeling distended, nauseous and vomiting. She denies fever, chills, chest pain, dysuria, diarrhea. She was transferred to [facility] in 12/2020 but was tr eated medically, no NG tube was placed there per patient. ROS: A 10-point review of systems, other than pertinent positives and negatives as stated per HPI, is otherwise negative Past medical history: No additional pertinent history Past Surgical history: No additional pertinent history Social history: No additional pertinent history Family history: No additional pertinent history PHYSICAL EXAM General: AOx4, GCS = 15, cachectic, mild distress HEENT: dry mucous membrane Neck: supple, no meningismus, no Kernig or Brudzinski Cardiac: S1S2 RRR Respiratory: CTAB, no crackles or rales, no wheezing Abdomen: mild diffuse tenderness, distended, hypoactive bowel sounds, no pulsatile mass. Back: nontender Musculoskeletal: NVI distally, no deformity Neuro: No focal deficits Abdomen Pain Score (Numeric/FACES): 10 - Related Data Allergies Allergy/AdvReac Type Severity Reaction Status Date / Time azithromycin Allergy Anaphylactic Verified 02/28/21 03:33 Shock codeine Allergy Other Verified 02/28/21 03:33 Home Meds: Home Meds Aspirin 1 tab PO DAILY 12/03/14 [History] Erythromycin Base [Erythromycin 0.5% Ophth Oint] 1 dose EYEBOTH DAILY 12/03/14 [History] Levothyroxine 125 mcg PO DAILY 12/03/14 [History] cycloSPORINE [Restasis] 1 dose EYEBOTH DAILY 12/03/14 [History] Albuterol [Ventolin HFA] 2 puff INH Q4H 08/08/17 [History] Ascorbic Acid [C-1000] 1,000 mg PO DAILY 08/08/17 [History] Calcium Carbonate/Vitamin D3 [Calcium 600 + Vit D Tablet] 1 each PO DAILY 08/08/17 [History] Cyanocobalamin (Vitamin B12) [Vitamin B12] 1,000 mcg PO DAILY 08/08/17 [History] Docusate Sodium 100 mg PO BID PRN 08/08/17 [History] Fish Oil/[place]-3 Fatty Acids [Fish Oil 1,000 MG] 1 cap PO DAILY 08/08/17 [History] Multivitamin with Minerals [Multiple Vitamin] 1 tab PO DAILY 08/08/17 [History] dilTIAZem HCL [Cardizem] 60 mg PO QID 08/08/17 [History] hydroCHLOROthiazide [Hydrochlorothiazide] 12.5 mg PO DAILY 08/08/17 [History] Glucosamine [Glucosamine Sulfate] 1 tab PO DAILY 10/05/19 [History] Zinc Gluconate [Zinc] 1 tab PO DAILY 10/05/19 [History] Ferrous Sulfate 324 mg PO BIDMEALS #60 tab.ec 10/06/19 [Rx] Fluticasone Propion/Salmeterol [Fluticasone-Salmeterol 250-50] 1 inh INH BID 10/06/19 [History] Hydrocodone/Acetaminophen [HYDROcodone-Acetaminophen 5-300 MG] 7.5 - 300 mg PO Q6H 10/06/19 [History] Naloxegol Oxalate [Movantik] 25 mg PO DAILY 10/06/19 [History] Nystatin [Nystatin Oral Syringe] 2 ml PO QID 10/06/19 [History] Omeprazole 40 mg PO BID #60 tab 10/06/19 [Rx] Past Medical History HEENT History: Reports: Impaired Vision Cardiovascular History: Reports: Arrhythmia, Heart Failure, Hypertension Other Cardiovascular History: Palpitations. ACS. 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: Musculoskeletal History: Reports: None Other Musculoskeletal History: fx to R leg, THRA Right Neurological History: Reports: None Psychiatric History: Reports: None Endocrine/Metabolic History: Reports: Hypothyroidism Hematologic History: Reports: Blood Transfusion(s) Immunologic History: Reports: None Oncologic (Cancer) History: Reports: None Dermatologic History: Reports: None - Infectious Disease History Infectious Disease History: Reports: Measles - Past Surgical History Head Surgeries/Procedures: Reports: None HEENT Surgical History: Reports: Naso-Sinus Surgery, Tonsillectomy Other GI Surgeries/Procedures: Rectal Surgery for Hemorrhoids in 2018 or 2019, patient can't recall Other Musculoskeletal Surgeries/Procedures:: Left Social & Family History - Family History Family Medical History: No Pertinent Family History - Caffeine Use Caffeine Use: Reports: Coffee ED ROS GENERAL - Review of Systems Review Of Systems: See Below (see dictation) ED EXAM, GENERAL - Physical Exam Exam: See Below (see dictation) #1 Interpretation EKG Interpretation Comments: Heart rate = 85 bpm, normal sinus rhythm, normal QRS interval, no STEMI. EKG and rhythm strip interpreted by me at 0415 Course - Vital Signs Last Recorded V/S: Last Vital Signs Temp 97.3 F 02/28/21 03:33 Pulse 88 02/28/21 06:12 Resp 16 02/28/21 06:12 BP 152/94 H 02/28/21 06:12 Pulse Ox 90 L 02/28/21 06:12 - Orders/Labs/Meds Orders: Active Orders 24 hr Category Date Time Status Abdomen 1V Upright [CR] Stat Exams 02/28/21 06:08 Ordered UA W/CHIVO RFLX IF INDICATED [URIN] Stat Lab 02/28/21 03:36 Ordered Piperacillin/Tazobactam [Piperacil-Tazobact] 4.5 gm Med 02/28/21 06:17 Active Sodium Chloride 0.9% [Normal Saline AdvBag] 100 ml IV ONETIME Sodium Chloride 0.9% [Saline Flush] Med 02/28/21 03:35 Active 10 ml FLUSH ASDIRECTED PRN Sodium Chloride 0.9% [Saline Flush] Med 02/28/21 03:35 Active 2.5 ml FLUSH ASDIRECTED PRN Saline Lock Insert [OM.PC] Stat Oth 02/28/21 03:35 Ordered Medication Orders Piperacillin Sod/Tazobactam (Sod 4.5 gm/ Sodium Chloride) 100 mls @ 100 mls/hr IV ONETIME ONE Stop: 02/28/21 07:16 Last Admin: 02/28/21 06:45 Dose: 100 mls/hr Documented by: GREGORIA Sodium Chloride (Sodium Chloride 0.9% 10 Ml Syringe) 10 ml FLUSH ASDIRECTED PRN PRN Reason: Keep Vein Open Last Admin: 02/28/21 03:45 Dose: 10 ml Documented by: GREGORIA Sodium Chloride (Sodium Chloride 0.9% 2.5 Ml Syringe) 2.5 ml FLUSH ASDIRECTED PRN PRN Reason: Keep Vein Open Last Admin: 02/28/21 03:45 Dose: 2.5 ml Documented by: GREGORIA Labs: Laboratory Tests 02/28/21 02/28/21 02/28/21 Range/Units 03:29 03:29 03:29 WBC 14.38 H (4.0-11.0) K/uL RBC 4.57 (4.30-5.90) M/uL Hgb 14.9 (12.0-16.0) g/dL Hct 42.6 (36.0-46.0) % MCV 93.2 (80.0-98.0) fL MCH 32.6 H (27.0-32.0) pg MCHC 35.0 (31.0-37.0) g/dL RDW Std Deviation 49.1 (28.0-62.0) fl RDW Coeff of Ellie 14 (11.0-15.0) % Plt Count 255 (150-400) K/uL MPV 9.00 (7.40-12.00) fL Neut % (Auto) 88.4 H (48.0-80.0) % Lymph % (Auto) 6.3 L (16.0-40.0) % [place] % (Auto) 5.1 (0.0-15.0) % Eos % (Auto) 0.1 (0.0-7.0) % Baso % (Auto) 0.1 (0.0-1.5) % Neut # (Auto) 12.7 H (1.4-5.7) K/uL Lymph # (Auto) 0.9 (0.6-2.4) K/uL [place] # (Auto) 0.7 (0.0-0.8) K/uL Eos # (Auto) 0.0 (0.0-0.7) K/uL Baso # (Auto) 0.0 (0.0-0.1) K/uL Nucleated RBC % 0.0 /100WBC Nucleated RBCs # 0 K/uL Sodium 129 L (136-145) mmol/L Potassium 4.3 (3.5-5.1) mmol/L Chloride 91 L (98-107) mmol/L Carbon Dioxide 30.8 (21.0-32.0) mmol/L BUN 22 H (7.0-18.0) mg/dL Creatinine 0.6 (0.6-1.0) mg/dL Est Cr Clr Drug Dosing TNP Estimated GFR (MDRD) > 60.0 ml/min Glucose 166 H (74-106) mg/dL Lactic Acid (0.4-2.0) mmol/L Calcium 9.2 (8.5-10.1) mg/dL Total Bilirubin 0.6 (0.2-1.0) mg/dL AST 19 (15-37) IU/L ALT 21 (14-63) IU/L Alkaline Phosphatase 115 (46-116) U/L Troponin I < 0.050 (0.000-0.056) ng/mL Total Protein 8.8 H (6.4-8.2) g/dL Albumin 3.8 (3.4-5.0) g/dL Globulin 5.0 H (2.6-4.0) g/dL Albumin/Globulin Ratio 0.8 L (0.9-1.6) Lipase 50 L (73-393) U/L SARS-CoV-2 RNA (CARLA) (NEGATIVE) 02/28/21 02/28/21 Range/Units 03:40 04:28 WBC (4.0-11.0) K/uL RBC (4.30-5.90) M/uL Hgb (12.0-16.0) g/dL Hct (36.0-46.0) % MCV (80.0-98.0) fL MCH (27.0-32.0) pg MCHC (31.0-37.0) g/dL RDW Std Deviation (28.0-62.0) fl RDW Coeff of Ellie (11.0-15.0) % Plt Count (150-400) K/uL MPV (7.40-12.00) fL Neut % (Auto) (48.0-80.0) % Lymph % (Auto) (16.0-40.0) % [place] % (Auto) (0.0-15.0) % Eos % (Auto) (0.0-7.0) % Baso % (Auto) (0.0-1.5) % Neut # (Auto) (1.4-5.7) K/uL Lymph # (Auto) (0.6-2.4) K/uL [place] # (Auto) (0.0-0.8) K/uL Eos # (Auto) (0.0-0.7) K/uL Baso # (Auto) (0.0-0.1) K/uL Nucleated RBC % /100WBC Nucleated RBCs # K/uL Sodium (136-145) mmol/L Potassium (3.5-5.1) mmol/L Chloride (98-107) mmol/L Carbon Dioxide (21.0-32.0) mmol/L BUN (7.0-18.0) mg/dL Creatinine (0.6-1.0) mg/dL Est Cr Clr Drug Dosing Estimated GFR (MDRD) ml/min Glucose (74-106) mg/dL Lactic Acid 0.9 (0.4-2.0) mmol/L Calcium (8.5-10.1) mg/dL Total Bilirubin (0.2-1.0) mg/dL AST (15-37) IU/L ALT (14-63) IU/L Alkaline Phosphatase (46-116) U/L Troponin I (0.000-0.056) ng/mL Total Protein (6.4-8.2) g/dL Albumin (3.4-5.0) g/dL Globulin (2.6-4.0) g/dL Albumin/Globulin Ratio (0.9-1.6) Lipase (73-393) U/L SARS-CoV-2 RNA (CARLA) NEGATIVE (NEGATIVE) Meds: Medications Generic Name Dose Route Start Last Admin Trade Name Freq PRN Reason Stop Dose Admin Piperacillin Sod/Tazobactam 100 mls @ 100 mls/hr 02/28/21 06:17 02/28/21 06:45 Sod 4.5 gm/ Sodium Chloride IV 02/28/21 07:16 100 mls/hr ONETIME ONE Administration Sodium Chloride 10 ml 02/28/21 03:35 02/28/21 03:45 Sodium Chloride 0.9% 10 Ml Syringe FLUSH 10 ml ASDIRECTED PRN Administration Keep Vein Open Sodium Chloride 2.5 ml 02/28/21 03:35 02/28/21 03:45 Sodium Chloride 0.9% 2.5 Ml Syringe FLUSH 2.5 ml ASDIRECTED PRN Administration Keep Vein Open Discontinued Medications Generic Name Dose Route Start Last Admin Trade Name Freq PRN Reason Stop Dose Admin Iopamidol 50 ml 02/28/21 05:21 02/28/21 05:22 Iopamidol 755 Mg/Ml 500 Ml Multipack Bottle IVPUSH 02/28/21 05:22 50 ml ONETIME STA Administration Morphine Sulfate 4 mg 02/28/21 04:27 02/28/21 04:32 Morphine 4 Mg/Ml Vial IVPUSH 02/28/21 04:28 4 mg ONETIME ONE Administration Morphine Sulfate 4 mg 02/28/21 06:38 02/28/21 06:45 Morphine 4 Mg/Ml Vial IVPUSH 02/28/21 06:39 4 mg ONETIME ONE Administration Ondansetron HCl 4 mg 02/28/21 04:27 02/28/21 04:32 Ondansetron 4 Mg/2 Ml Sdv IVPUSH 02/28/21 04:28 4 mg ONETIME ONE Administration Ondansetron HCl 4 mg 02/28/21 06:38 02/28/21 06:44 Ondansetron 4 Mg/2 Ml Sdv IVPUSH 02/28/21 06:39 4 mg ONETIME ONE Administration - Re-Assessments/Exams Free Text/Narrative Re-Assessment/Exam: 02/28/21 06:09 CT result reviewed, case discussed with Dr. Alexandra Jimenez, she recommends NG tube and transfer back to [facility] since she was discharged from there in December for similar issue, and now having recurrent SBO with right inguinal hernia. 02/28/21 06:16 Patient declined NG tube. IV zosyn ordered. 02/28/21 06:[address] Brown at [facility] ER. There are at capacity currently and cannot accept patient transfer. 02/28/21 06:36 Case again discussed with Dr. Alexandra Jimenez, she was informed with [facility] at capacity and unable to take transfer at this time. She recommends admitting to medicine service and she will consult, and have an extensive goal of care conversation with the patient given her multiple comorbidities and poor surgical candidate. 02/28/21 06:[address] Joe Palacios, who agrees to admit patient. The hospitalist's documentation supersedes all other documentation on this patient with regard to any conflicts or discrepancies from this point forward. Any emergency conditions have been treated to the ability of the ED prior to admission. Departure - Departure Time of Disposition: 06:30 Disposition: Admitted As Inpatient 66 Condition: Serious Clinical Impression: SBO (small bowel obstruction), Hiatal hernia, Abdominal pain, Leukocytosis, Inguinal hernia, incarcerated, COPD (chronic obstructive pulmonary disease), CHF (congestive heart failure) - Discharge Information *PRESCRIPTION DRUG MONITORING PROGRAM REVIEWED*: Not Applicable *COPY OF PRESCRIPTION DRUG MONITORING REPORT IN PATIENT MERLE: Not Applicable Instructions: Inguinal Hernia, Adult, [id number], Bowel Obstruction, [id number], Chronic Obstructive Pulmonary Disease, [id number] Referrals: PCP,None [Primary Care Provider] - Forms: ED Department Discharge Sepsis Event Note (ED) - Evaluation Sepsis Screening Result: No Definite Risk - Focused Exam Vital Signs: Vital Signs Temp Pulse Resp BP Pulse Ox 02/28/21 06:12 88 16 152/94 H 90 L 02/28/21 05:10 81 16 94 L 02/28/21 04:38 77 18 174/108 H 92 L 02/28/21 03:33 97.3 F 85 18 175/99 H 93 L - My Orders Last 24 Hours: My Active Orders 02/28/21 03:35 Sodium Chloride 0.9% [Saline Flush] 10 ml FLUSH ASDIRECTED PRN Sodium Chloride 0.9% [Saline Flush] 2.5 ml FLUSH ASDIRECTED PRN Saline Lock Insert [OM.PC] Stat 02/28/21 03:36 UA W/CHIVO RFLX IF INDICATED [URIN] Stat 02/28/21 06:08 Abdomen 1V Upright [CR] Stat 02/28/21 06:17 Piperacillin/Tazobactam [Piperacil-Tazobact] 4.5 gm Sodium Chloride 0.9% [Normal Saline AdvBag] 100 ml IV ONETIME - Assessment/Plan Last 24 Hours: My Active Orders 02/28/21 03:35 Sodium Chloride 0.9% [Saline Flush] 10 ml FLUSH ASDIRECTED PRN Sodium Chloride 0.9% [Saline Flush] 2.5 ml FLUSH ASDIRECTED PRN Saline Lock Insert [OM.PC] Stat 02/28/21 03:36 UA W/CHIVO RFLX IF INDICATED [URIN] Stat 02/28/21 06:08 Abdomen 1V Upright [CR] Stat 02/28/21 06:17 Piperacillin/Tazobactam [Piperacil-Tazobact] 4.5 gm Sodium Chloride 0.9% [Normal Saline AdvBag] 100 ml IV ONETIME
[2021-02-28 04:01] LABS: BLOOD UREA NITROGEN,BUN 22 mg/dL (7.0-18.0); CARBON DIOXIDE,CO2 30.8 mmol/L (21.0-32.0); CHLORIDE,CL 91 mmol/L (98-107); GLUCOSE RANDOM 166 mg/dL (74-106); LIPASE 50 U/L (73-393); POTASSIUM,K 4.3 mmol/L (3.5-5.1); SODIUM,NA 129 mmol/L (136-145)
[2021-02-28] MEDS ORDERED: Ondansetron 4 MG/2 ML SDV IVPUSH ONE ×2 (04:27→06:38)
[2021-02-28] MEDS ORDERED: Morphine 4 MG/ML VIAL IVPUSH ONE ×2 (04:27→06:38)
[2021-02-28] MEDS ORDERED: Iopamidol 755 MG/ML 500 ML Multipack Bottle IVPUSH STA (05:21)
--- NOTE | 2021-02-28 06:01 | CT ---
INDICATION: Abdominal pain, history of small bowel obstruction, inguinal hernia, hiatal hernia TECHNIQUE: CT Abdomen and pelvis with i.v. contrast. Coronal and sagittal reformats were obtained. CONTRAST: 50 mL Isovue 370 COMPARISON: 01/08/2021 FINDINGS: The sensitivity and specificity of the exam are moderately limited by beam hardening artifacts from scanning with the arms by the patient`s side. Lower chest: Bibasilar linear scarring is present. Severe atherosclerotic calcifications are noted in the coronary arteries. A 6 mm calcified granuloma is present in the left lower lobe. Liver: Unremarkable. Spleen: Unremarkable. Pancreas: Unremarkable. Gallbladder: Moderate gallbladder distention is present with several punctate calcified gallstones seen. Kidney: Excretion of contrast into the renal collecting systems and ureters arenoted, which limits evaluation for the presence of stones. There is a small cortical cyst in the mid zone of the right kidney measuring 1.2 cm. Adrenal: Not well seen due to retroperitoneal edema. Bowel: Fluid-filled nondilated distal small bowel loops are present measuring up to 3 cm in diameter. There is a right inguinal hernia containing a loop of bowel with feculent material present. A moderate, fluid-filled sliding type gastric hiatal hernia (type IV) is present without significant interval change. The appendix is not identified. Vascular: Moderate diffuse atherosclerotic calcifications of the abdominal aorta and its tributaries are present. Lymph: Left inguinal adenopathy is seen with lymph nodes measuring up to 1.2 cm without interval change. Peritoneum: Unremarkable. No pneumoperitoneum is seen. No significant ascites is noted. Pelvis: Evaluation of the pelvic soft tissues and osseous structures are limited by beam hardening artifacts from the left hip prosthesis. The uterus is not well-visualized and may be surgically absent. Soft tissue: Diffuse cachexia is present with anasarca. Bone: Severe dextrorotatory scoliosis of the lumbar spine is present with severe associated degenerative disc disease and facet disease. IMPRESSION: 1. Fluid-filled nondilated distal small bowel loops are present measuring up to 3 cm in diameter. There is a right inguinal hernia containing a loop of bowel with feculent material present. The appearance is similar to prior examination and remains suspicious for the right inguinal hernia causing high-grade distal small-bowel obstruction. Dictated by Frederick Crowell MD @ 02/28/2021 5:56:54 AM Please note that all CT scans at this facility use dose modulation, iterative reconstruction, and/or weight-based dosing when appropriate to reduce radiation dose to as low as reasonably achievable. Dictated by: Frederick Crowell MD @ 02/28/2021 05:59:29 (Electronically Signed)
[2021-02-28] MEDS ORDERED: Piperacillin/Tazobactam 4.5 GM in Sodium Chloride 0.9% 100 ML IV ONE (06:17)
--- NOTE | 2021-02-28 07:43 | PCM.HP.2 ---
H&P History of Present Illness - General Date of Service: 02/28/21 Admit Problem/Dx: Admission Diagnosis/Problem Admission Diagnosis/Problem Small bowel obstruction - History of Present Illness Initial Comments - Free Text/Narative: 85-year-old female with a history of CHF, COPD on 4 L oxygen, hiatal hernia, inguinal hernia and bowel obstruction presents to the ER with complaints of nausea and abdominal pain that began after a meal she had yesterday. Pain is described as generalized, dull, bloating. Patient has abdominal distention. She feels nauseous but cannot vomit. She had a small bowel obstruction December 2020 and was treated supportively in [place], as she is not a candidate for surgery. She is being admitted for conservative management of a small bowel obstruction. Patient has a significant hiatal hernia. Patient has refused an NG tube. She feels nauseous but cannot vomit. Patient has passed some gas since this morning. Patient denies fever, chills, chest pain, palpitations, diarrhea, headaches, weakness, numbness or dizziness. ER course: CT abdomen/pelvis shows right inguinal hernia containing loops of bowel causing small bowel obstruction. WBC 14. Hemoglobin 15. Sodium 129. Potassium 4.3. Chloride 91. Bicarb 30.8. BUN 22. Creatinine 0.6. Glucose 166. Lactic acid 0.9. Troponin negative. Urinalysis trace proteins, trace ketones. CODE STATUS: DNR/DNI. Abdomen Pain Score (Numeric/FACES): 10 - Related Data Allergies/Adverse Reactions: Allergies Allergy/AdvReac Type Severity Reaction Status Date / Time azithromycin Allergy Anaphylactic Verified 02/28/21 03:33 Shock codeine Allergy Other Verified 02/28/21 03:33 Home Medications: Home Meds Aspirin 1 tab PO DAILY 12/03/14 [History] Erythromycin Base [Erythromycin 0.5% Ophth Oint] 1 dose EYEBOTH DAILY 12/03/14 [History] Levothyroxine 125 mcg PO DAILY 12/03/14 [History] cycloSPORINE [Restasis] 1 dose EYEBOTH DAILY 12/03/14 [History] Albuterol [Ventolin HFA] 2 puff INH Q4H 08/08/17 [History] Ascorbic Acid [C-1000] 1,000 mg PO DAILY 08/08/17 [History] Calcium Carbonate/Vitamin D3 [Calcium 600 + Vit D Tablet] 1 each PO DAILY 08/08/17 [History] Cyanocobalamin (Vitamin B12) [Vitamin B12] 1,000 mcg PO DAILY 08/08/17 [History] Docusate Sodium 100 mg PO BID PRN 08/08/17 [History] Fish Oil/[place]-3 Fatty Acids [Fish Oil 1,000 MG] 1 cap PO DAILY 08/08/17 [History] Multivitamin with Minerals [Multiple Vitamin] 1 tab PO DAILY 08/08/17 [History] dilTIAZem HCL [Cardizem] 60 mg PO QID 08/08/17 [History] hydroCHLOROthiazide [Hydrochlorothiazide] 12.5 mg PO DAILY 08/08/17 [History] Glucosamine [Glucosamine Sulfate] 1 tab PO DAILY 10/05/19 [History] Zinc Gluconate [Zinc] 1 tab PO DAILY 10/05/19 [History] Ferrous Sulfate 324 mg PO BIDMEALS #60 tab.ec 10/06/19 [Rx] Fluticasone Propion/Salmeterol [Fluticasone-Salmeterol 250-50] 1 inh INH BID 10/06/19 [History] Hydrocodone/Acetaminophen [HYDROcodone-Acetaminophen 5-300 MG] 7.5 - 300 mg PO Q6H 10/06/19 [History] Naloxegol Oxalate [Movantik] 25 mg PO DAILY 10/06/19 [History] Nystatin [Nystatin Oral Syringe] 2 ml PO QID 10/06/19 [History] Omeprazole 40 mg PO BID #60 tab 10/06/19 [Rx] Past Medical History HEENT History: Reports: Impaired Vision Cardiovascular History: Reports: Arrhythmia, Heart Failure, Hypertension Other Cardiovascular History: Palpitations. ACS. 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: Musculoskeletal History: Reports: None Other Musculoskeletal History: fx to R leg, THRA Right Neurological History: Reports: None Psychiatric History: Reports: None Endocrine/Metabolic History: Reports: Hypothyroidism Hematologic History: Reports: Blood Transfusion(s) Immunologic History: Reports: None Oncologic (Cancer) History: Reports: None Dermatologic History: Reports: None - Infectious Disease History Infectious Disease History: Reports: Measles - Past Surgical History Head Surgeries/Procedures: Reports: None HEENT Surgical History: Reports: Naso-Sinus Surgery, Tonsillectomy Other GI Surgeries/Procedures: Rectal Surgery for Hemorrhoids in 2018 or 2019, patient can't recall Other Musculoskeletal Surgeries/Procedures:: Left Social & Family History - Family History Family Medical History: No Pertinent Family History - Caffeine Use Caffeine Use: Reports: Coffee H&P Review of Systems - Review of Systems: Review Of Systems: See Below General: Denies: Fever, Chills Pulmonary: Reports: Wheezing. Denies: Shortness of Breath, Cough Cardiovascular: Denies: Chest Pain, Palpitations Genitourinary: Denies: Dysuria Musculoskeletal: Denies: Leg Pain Skin: Denies: Rash Psychiatric: Denies: Confusion Neurological: Denies: Dizziness, Headache, Numbness, Paresthesia Exam - Exam Exam: See Below - Vital Signs Vital Signs: Last Vital Signs Temp 100.3 F 02/28/21 07:10 Pulse 80 02/28/21 07:10 Resp 18 02/28/21 07:10 BP 151/99 H 02/28/21 07:10 Pulse Ox 97 02/28/21 07:10 Weight: 95 lb - Exam Quality Assessment: Supplemental Oxygen General: Alert, Oriented HEENT: Conjunctiva Clear, EACs Clear Neck: Supple, Trachea Midline. No: JVD Lungs: Decreased Breath Sounds, Other (Chest wall bony deformation.) Cardiovascular: Regular Rate, Regular Rhythm GI/Abdominal Exam: Distended, Tender, Other (Decreased bowel sounds. Mildly tender to touch throughout the abdomen.). No: Guarding, Rigid, Rebound Extremities: Non-Tender, No Pedal Edema, Other (Right lower extremity has a visible bony protrusion at the mid medial aspect. Patient states this is chronic.). No: Prema's Sign, Leg Pain Peripheral Pulses: 2+: Dorsalis Pedis (L), Dorsalis Pedis (R) Skin: Ecchymosis (Bilateral lower extremities.). No: Rash Neurological: Strength Equal Bilateral. No: Focal Deficit - Patient Data Lab Results Last 24 hrs: Laboratory Results - last 24 hr 02/28/21 02/28/21 02/28/21 Range/Units 03:29 03:29 03:29 WBC 14.38 H (4.0-11.0) K/uL RBC 4.57 (4.30-5.90) M/uL Hgb 14.9 (12.0-16.0) g/dL Hct 42.6 (36.0-46.0) % MCV 93.2 (80.0-98.0) fL MCH 32.6 H (27.0-32.0) pg MCHC 35.0 (31.0-37.0) g/dL RDW Std Deviation 49.1 (28.0-62.0) fl RDW Coeff of Ellie 14 (11.0-15.0) % Plt Count 255 (150-400) K/uL MPV 9.00 (7.40-12.00) fL Neut % (Auto) 88.4 H (48.0-80.0) % Lymph % (Auto) 6.3 L (16.0-40.0) % [place] % (Auto) 5.1 (0.0-15.0) % Eos % (Auto) 0.1 (0.0-7.0) % Baso % (Auto) 0.1 (0.0-1.5) % Neut # (Auto) 12.7 H (1.4-5.7) K/uL Lymph # (Auto) 0.9 (0.6-2.4) K/uL [place] # (Auto) 0.7 (0.0-0.8) K/uL Eos # (Auto) 0.0 (0.0-0.7) K/uL Baso # (Auto) 0.0 (0.0-0.1) K/uL Nucleated RBC % 0.0 /100WBC Nucleated RBCs # 0 K/uL Sodium 129 L (136-145) mmol/L Potassium 4.3 (3.5-5.1) mmol/L Chloride 91 L (98-107) mmol/L Carbon Dioxide 30.8 (21.0-32.0) mmol/L BUN 22 H (7.0-18.0) mg/dL Creatinine 0.6 (0.6-1.0) mg/dL Est Cr Clr Drug Dosing TNP Estimated GFR (MDRD) > 60.0 ml/min Glucose 166 H (74-106) mg/dL Lactic Acid (0.4-2.0) mmol/L Calcium 9.2 (8.5-10.1) mg/dL Total Bilirubin 0.6 (0.2-1.0) mg/dL AST 19 (15-37) IU/L ALT 21 (14-63) IU/L Alkaline Phosphatase 115 (46-116) U/L Troponin I < 0.050 (0.000-0.056) ng/mL Total Protein 8.8 H (6.4-8.2) g/dL Albumin 3.8 (3.4-5.0) g/dL Globulin 5.0 H (2.6-4.0) g/dL Albumin/Globulin Ratio 0.8 L (0.9-1.6) Lipase 50 L (73-393) U/L Urine Color Urine Appearance Urine pH (5.0-8.0) Ur Specific [place] (1.001-1.035) Urine Protein (NEGATIVE) mg/dL Urine Glucose (UA) (NEGATIVE) mg/dL Urine Ketones (NEGATIVE) mg/dL Urine Occult Blood (NEGATIVE) Urine Nitrite (NEGATIVE) Urine Bilirubin (NEGATIVE) Urine Urobilinogen (<2.0) EU/dL Ur Leukocyte Esterase (NEGATIVE) Urine RBC (0-2/HPF) Urine WBC (0-5/HPF) Ur Epithelial Cells (NONE-FEW) Urine Bacteria (NEGATIVE) Urine Mucus (NONE-MOD) SARS-CoV-2 RNA (CARLA) (NEGATIVE) 02/28/21 02/28/21 02/28/21 Range/Units 03:40 04:28 06:38 WBC (4.0-11.0) K/uL RBC (4.30-5.90) M/uL Hgb (12.0-16.0) g/dL Hct (36.0-46.0) % MCV (80.0-98.0) fL MCH (27.0-32.0) pg MCHC (31.0-37.0) g/dL RDW Std Deviation (28.0-62.0) fl RDW Coeff of Ellie (11.0-15.0) % Plt Count (150-400) K/uL MPV (7.40-12.00) fL Neut % (Auto) (48.0-80.0) % Lymph % (Auto) (16.0-40.0) % [place] % (Auto) (0.0-15.0) % Eos % (Auto) (0.0-7.0) % Baso % (Auto) (0.0-1.5) % Neut # (Auto) (1.4-5.7) K/uL Lymph # (Auto) (0.6-2.4) K/uL [place] # (Auto) (0.0-0.8) K/uL Eos # (Auto) (0.0-0.7) K/uL Baso # (Auto) (0.0-0.1) K/uL Nucleated RBC % /100WBC Nucleated RBCs # K/uL Sodium (136-145) mmol/L Potassium (3.5-5.1) mmol/L Chloride (98-107) mmol/L Carbon Dioxide (21.0-32.0) mmol/L BUN (7.0-18.0) mg/dL Creatinine (0.6-1.0) mg/dL Est Cr Clr Drug Dosing Estimated GFR (MDRD) ml/min Glucose (74-106) mg/dL Lactic Acid 0.9 (0.4-2.0) mmol/L Calcium (8.5-10.1) mg/dL Total Bilirubin (0.2-1.0) mg/dL AST (15-37) IU/L ALT (14-63) IU/L Alkaline Phosphatase (46-116) U/L Troponin I (0.000-0.056) ng/mL Total Protein (6.4-8.2) g/dL Albumin (3.4-5.0) g/dL Globulin (2.6-4.0) g/dL Albumin/Globulin Ratio (0.9-1.6) Lipase (73-393) U/L Urine Color YELLOW Urine Appearance CLOUDY Urine pH 7.0 (5.0-8.0) Ur Specific [place] 1.015 (1.001-1.035) Urine Protein TRACE H (NEGATIVE) mg/dL Urine Glucose (UA) NEGATIVE (NEGATIVE) mg/dL Urine Ketones TRACE H (NEGATIVE) mg/dL Urine Occult Blood NEGATIVE (NEGATIVE) Urine Nitrite NEGATIVE (NEGATIVE) Urine Bilirubin NEGATIVE (NEGATIVE) Urine Urobilinogen 1.0 (<2.0) EU/dL Ur Leukocyte Esterase NEGATIVE (NEGATIVE) Urine RBC NONE SEEN (0-2/HPF) Urine WBC 0-2 (0-5/HPF) Ur Epithelial Cells FEW (NONE-FEW) Urine Bacteria 1+ H (NEGATIVE) Urine Mucus LIGHT (NONE-MOD) SARS-CoV-2 RNA (CARLA) NEGATIVE (NEGATIVE) Result Diagrams: 02/28/21 03:29 02/28/21 03:29 Sepsis Event Note - Evaluation Sepsis Screening Result: No Definite Risk - Focused Exam Vital Signs: Vital Signs Temp Pulse Resp BP Pulse Ox 02/28/21 07:10 100.3 F 80 18 151/99 H 97 02/28/21 06:12 88 16 152/94 H 90 L 02/28/21 05:10 81 16 94 L 02/28/21 04:38 77 18 174/108 H 92 L 02/28/21 03:33 97.3 F 85 18 175/99 H 93 L - Problem List (1) Abdominal pain SNOMED Code(s): 27323465 ICD Code: R10.9 - UNSPECIFIED ABDOMINAL PAIN Status: Acute Current Visit: Yes (2) SBO (small bowel obstruction) SNOMED Code(s): 536553253 ICD Code: K56.609 - UNSP INTESTNL OBST, UNSP TO PARTIAL VERSUS COMPLETE OBST Status: Acute Current Visit: Yes Problem List Initiated/Reviewed/Updated: Yes Orders Last 24hrs: Active Orders 24 hr Category Date Time Status Patient Status [ADT] Routine ADT 02/28/21 06:52 Active Abdomen 1V Upright [CR] Stat Exams 02/28/21 06:08 Ordered Sodium Chloride 0.9% [Saline Flush] Med 02/28/21 03:35 Active 10 ml FLUSH ASDIRECTED PRN Sodium Chloride 0.9% [Saline Flush] Med 02/28/21 03:35 Active 2.5 ml FLUSH ASDIRECTED PRN Saline Lock Insert [OM.PC] Stat Oth 02/28/21 03:35 Ordered Medication Orders Sodium Chloride (Sodium Chloride 0.9% 10 Ml Syringe) 10 ml FLUSH ASDIRECTED PRN PRN Reason: Keep Vein Open Last Admin: 02/28/21 03:45 Dose: 10 ml Documented by: GREGORIA Sodium Chloride (Sodium Chloride 0.9% 2.5 Ml Syringe) 2.5 ml FLUSH ASDIRECTED PRN PRN Reason: Keep Vein Open Last Admin: 02/28/21 03:45 Dose: 2.5 ml Documented by: GREGORIA Assessment/Plan Comment:: 85-year-old female with small bowel obstruction: -Medical management only. General surgery discussed NG tube, patient refused. Also discussed if she was interested in surgery if it was required her became emergent. Patient stated she was unsure and wanted to speak with her family. -NPO. Normal saline at 75 mL/h. -Zofran for nausea. -Continue home medications including oxygen.
[2021-02-28] MEDS ORDERED: Acetaminophen 325 MG Tab PO PRN (07:52)
[2021-02-28] MEDS ORDERED: Albuterol/Ipratropium 3.0-0.5 MG/3 ML Neb Soln NEB PRN (07:52)
[2021-02-28] MEDS ORDERED: Sodium Chloride 0.9% 1,000 ML IV SCH (08:00)
[2021-02-28] MEDS ORDERED: Morphine 2 MG/ML SYRINGE IVPUSH PRN (08:04)
--- NOTE | 2021-02-28 08:13 | PCM.CONS ---
H&P History of Present Illness - General Date of Service: 02/28/21 Admit Problem/Dx: Admission Diagnosis/Problem Admission Diagnosis/Problem Small bowel obstruction Source of Information: Patient History Limitations: Reports: No Limitations - History of Present Illness Initial Comments - Free Text/Narative: Patient is an 85 year old female with an incarcerated right inguinal hernia which is causing a SBO. She presented with the same symptoms last December. She was transferred to [place] for repair given her COPD, CHF, and large hiatal hernia. She states that she was told she was too high risk for surgery. They proceeded with conservative management and she did not undergo repair. The SBO resolved on its own. She has had no follow up. Her CT scan in the ER last appeared similar to her CT in December with no evidence of perforation. Her lactate was normal and her white count was mildly elevated. She refused an NG tube. She was admitted to the medicine service. She requested to be DNR DNI. When asked whether she would want surgery or not she was unsure. Abdomen Pain Score (Numeric/FACES): 10 - Related Data Allergies/Adverse Reactions: Allergies Allergy/AdvReac Type Severity Reaction Status Date / Time azithromycin Allergy Anaphylactic Verified 02/28/21 11:48 Shock codeine Allergy Other Verified 02/28/21 11:48 Home Medications: Home Meds Aspirin 1 tab PO DAILY 12/03/14 [History] Erythromycin Base [Erythromycin 0.5% Ophth Oint] 1 dose EYEBOTH DAILY 12/03/14 [History] Levothyroxine 125 mcg PO DAILY 12/03/14 [History] cycloSPORINE [Restasis] 1 dose EYEBOTH DAILY 12/03/14 [History] Albuterol [Ventolin HFA] 2 puff INH Q4H 08/08/17 [History] Ascorbic Acid [C-1000] 1,000 mg PO DAILY 08/08/17 [History] Calcium Carbonate/Vitamin D3 [Calcium 600 + Vit D Tablet] 1 each PO DAILY 08/08/17 [History] Cyanocobalamin (Vitamin B12) [Vitamin B12] 1,000 mcg PO DAILY 08/08/17 [History] Docusate Sodium 100 mg PO BID PRN 08/08/17 [History] Fish Oil/[place]-3 Fatty Acids [Fish Oil 1,000 MG] 1 cap PO DAILY 08/08/17 [History] Multivitamin with Minerals [Multiple Vitamin] 1 tab PO DAILY 08/08/17 [History] dilTIAZem HCL [Cardizem] 60 mg PO QID 08/08/17 [History] hydroCHLOROthiazide [Hydrochlorothiazide] 12.5 mg PO DAILY 08/08/17 [History] Glucosamine [Glucosamine Sulfate] 1 tab PO DAILY 10/05/19 [History] Zinc Gluconate [Zinc] 1 tab PO DAILY 10/05/19 [History] Ferrous Sulfate 324 mg PO BIDMEALS #60 tab.ec 10/06/19 [Rx] Fluticasone Propion/Salmeterol [Fluticasone-Salmeterol 250-50] 1 inh INH BID 10/06/19 [History] Hydrocodone/Acetaminophen [HYDROcodone-Acetaminophen 5-300 MG] 7.5 - 300 mg PO Q6H 10/06/19 [History] Naloxegol Oxalate [Movantik] 25 mg PO DAILY 10/06/19 [History] Nystatin [Nystatin Oral Syringe] 2 ml PO QID 10/06/19 [History] Omeprazole 40 mg PO BID #60 tab 10/06/19 [Rx] Past Medical History HEENT History: Reports: Impaired Vision Cardiovascular History: Reports: Arrhythmia, Heart Failure, Hypertension Other Cardiovascular History: Palpitations. ACS. 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: Musculoskeletal History: Reports: None Other Musculoskeletal History: fx to R leg, THRA Right Neurological History: Reports: None Psychiatric History: Reports: None Endocrine/Metabolic History: Reports: Hypothyroidism Hematologic History: Reports: Blood Transfusion(s) Immunologic History: Reports: None Oncologic (Cancer) History: Reports: None Dermatologic History: Reports: None - Infectious Disease History Infectious Disease History: Reports: Measles - Past Surgical History Head Surgeries/Procedures: Reports: None HEENT Surgical History: Reports: Naso-Sinus Surgery, Tonsillectomy Other GI Surgeries/Procedures: Rectal Surgery for Hemorrhoids in 2018 or 2019, patient can't recall Other Musculoskeletal Surgeries/Procedures:: Left Social & Family History - Family History Family Medical History: No Pertinent Family History - Caffeine Use Caffeine Use: Reports: Coffee H&P Review of Systems - Review of Systems: Review Of Systems: Comprehensive ROS is negative, except as noted in HPI. Exam - Exam Exam: See Below - Vital Signs Vital Signs: Last Vital Signs Temp 37.9 C 02/28/21 07:10 Pulse 80 02/28/21 07:10 Resp 18 02/28/21 07:10 BP 151/99 H 02/28/21 07:10 Pulse Ox 97 02/28/21 07:10 Weight: 43.091 kg - Exam Quality Assessment: Supplemental Oxygen General: Alert, Oriented, Cooperative HEENT: Conjunctiva Clear Lungs: Normal Respiratory Effort Cardiovascular: Regular Rate GI/Abdominal Exam: Distended, Hernia (large right inguinal hernia ). No: Guarding, Rigid, Rebound, Tender - Patient Data Lab Results Last 24 hrs: Laboratory Results - last 24 hr 02/28/21 02/28/21 02/28/21 Range/Units 03:29 03:29 03:29 WBC 14.38 H (4.0-11.0) K/uL RBC 4.57 (4.30-5.90) M/uL Hgb 14.9 (12.0-16.0) g/dL Hct 42.6 (36.0-46.0) % MCV 93.2 (80.0-98.0) fL MCH 32.6 H (27.0-32.0) pg MCHC 35.0 (31.0-37.0) g/dL RDW Std Deviation 49.1 (28.0-62.0) fl RDW Coeff of Ellie 14 (11.0-15.0) % Plt Count 255 (150-400) K/uL MPV 9.00 (7.40-12.00) fL Neut % (Auto) 88.4 H (48.0-80.0) % Lymph % (Auto) 6.3 L (16.0-40.0) % [place] % (Auto) 5.1 (0.0-15.0) % Eos % (Auto) 0.1 (0.0-7.0) % Baso % (Auto) 0.1 (0.0-1.5) % Neut # (Auto) 12.7 H (1.4-5.7) K/uL Lymph # (Auto) 0.9 (0.6-2.4) K/uL [place] # (Auto) 0.7 (0.0-0.8) K/uL Eos # (Auto) 0.0 (0.0-0.7) K/uL Baso # (Auto) 0.0 (0.0-0.1) K/uL Nucleated RBC % 0.0 /100WBC Nucleated RBCs # 0 K/uL Sodium 129 L (136-145) mmol/L Potassium 4.3 (3.5-5.1) mmol/L Chloride 91 L (98-107) mmol/L Carbon Dioxide 30.8 (21.0-32.0) mmol/L BUN 22 H (7.0-18.0) mg/dL Creatinine 0.6 (0.6-1.0) mg/dL Est Cr Clr Drug Dosing TNP Estimated GFR (MDRD) > 60.0 ml/min Glucose 166 H (74-106) mg/dL Lactic Acid (0.4-2.0) mmol/L Calcium 9.2 (8.5-10.1) mg/dL Total Bilirubin 0.6 (0.2-1.0) mg/dL AST 19 (15-37) IU/L ALT 21 (14-63) IU/L Alkaline Phosphatase 115 (46-116) U/L Troponin I < 0.050 (0.000-0.056) ng/mL Total Protein 8.8 H (6.4-8.2) g/dL Albumin 3.8 (3.4-5.0) g/dL Globulin 5.0 H (2.6-4.0) g/dL Albumin/Globulin Ratio 0.8 L (0.9-1.6) Lipase 50 L (73-393) U/L Urine Color Urine Appearance Urine pH (5.0-8.0) Ur Specific [place] (1.001-1.035) Urine Protein (NEGATIVE) mg/dL Urine Glucose (UA) (NEGATIVE) mg/dL Urine Ketones (NEGATIVE) mg/dL Urine Occult Blood (NEGATIVE) Urine Nitrite (NEGATIVE) Urine Bilirubin (NEGATIVE) Urine Urobilinogen (<2.0) EU/dL Ur Leukocyte Esterase (NEGATIVE) Urine RBC (0-2/HPF) Urine WBC (0-5/HPF) Ur Epithelial Cells (NONE-FEW) Urine Bacteria (NEGATIVE) Urine Mucus (NONE-MOD) SARS-CoV-2 RNA (CARLA) (NEGATIVE) 02/28/21 02/28/21 02/28/21 Range/Units 03:40 04:28 06:38 WBC (4.0-11.0) K/uL RBC (4.30-5.90) M/uL Hgb (12.0-16.0) g/dL Hct (36.0-46.0) % MCV (80.0-98.0) fL MCH (27.0-32.0) pg MCHC (31.0-37.0) g/dL RDW Std Deviation (28.0-62.0) fl RDW Coeff of Ellie (11.0-15.0) % Plt Count (150-400) K/uL MPV (7.40-12.00) fL Neut % (Auto) (48.0-80.0) % Lymph % (Auto) (16.0-40.0) % [place] % (Auto) (0.0-15.0) % Eos % (Auto) (0.0-7.0) % Baso % (Auto) (0.0-1.5) % Neut # (Auto) (1.4-5.7) K/uL Lymph # (Auto) (0.6-2.4) K/uL [place] # (Auto) (0.0-0.8) K/uL Eos # (Auto) (0.0-0.7) K/uL Baso # (Auto) (0.0-0.1) K/uL Nucleated RBC % /100WBC Nucleated RBCs # K/uL Sodium (136-145) mmol/L Potassium (3.5-5.1) mmol/L Chloride (98-107) mmol/L Carbon Dioxide (21.0-32.0) mmol/L BUN (7.0-18.0) mg/dL Creatinine (0.6-1.0) mg/dL Est Cr Clr Drug Dosing Estimated GFR (MDRD) ml/min Glucose (74-106) mg/dL Lactic Acid 0.9 (0.4-2.0) mmol/L Calcium (8.5-10.1) mg/dL Total Bilirubin (0.2-1.0) mg/dL AST (15-37) IU/L ALT (14-63) IU/L Alkaline Phosphatase (46-116) U/L Troponin I (0.000-0.056) ng/mL Total Protein (6.4-8.2) g/dL Albumin (3.4-5.0) g/dL Globulin (2.6-4.0) g/dL Albumin/Globulin Ratio (0.9-1.6) Lipase (73-393) U/L Urine Color YELLOW Urine Appearance CLOUDY Urine pH 7.0 (5.0-8.0) Ur Specific [place] 1.015 (1.001-1.035) Urine Protein TRACE H (NEGATIVE) mg/dL Urine Glucose (UA) NEGATIVE (NEGATIVE) mg/dL Urine Ketones TRACE H (NEGATIVE) mg/dL Urine Occult Blood NEGATIVE (NEGATIVE) Urine Nitrite NEGATIVE (NEGATIVE) Urine Bilirubin NEGATIVE (NEGATIVE) Urine Urobilinogen 1.0 (<2.0) EU/dL Ur Leukocyte Esterase NEGATIVE (NEGATIVE) Urine RBC NONE SEEN (0-2/HPF) Urine WBC 0-2 (0-5/HPF) Ur Epithelial Cells FEW (NONE-FEW) Urine Bacteria 1+ H (NEGATIVE) Urine Mucus LIGHT (NONE-MOD) SARS-CoV-2 RNA (CARLA) NEGATIVE (NEGATIVE) Result Diagrams: 02/28/21 03:29 02/28/21 03:29 Sepsis Event Note - Evaluation Sepsis Screening Result: No Definite Risk - Focused Exam Vital Signs: Vital Signs Temp Pulse Resp BP Pulse Ox 02/28/21 07:10 37.9 C 80 18 151/99 H 97 02/28/21 06:12 88 16 152/94 H 90 L 02/28/21 05:10 81 16 94 L 02/28/21 04:38 77 18 174/108 H 92 L 02/28/21 03:33 36.3 C 85 18 175/99 H 93 L Consult PN Assessment/Plan Procedures: Procedures AIRWAY INHALATION TREATMENT (08/08/17) ASSAY OF AMYLASE (08/08/17) ASSAY OF CK (CPK) (12/31/14) ASSAY OF FERRITIN (10/05/19) ASSAY OF FREE THYROXINE (08/08/17) ASSAY OF LACTIC ACID (01/08/21) ASSAY OF LIPASE (01/08/21) ASSAY OF NATRIURETIC PEPTIDE (10/05/19) ASSAY OF TROPONIN QUANT (01/08/21) ASSAY THYROID STIM HORMONE (08/08/17) AUTOMATED RETICULOCYTE COUNT (10/05/19) BLOOD CULTURE FOR BACTERIA (08/08/17) BLOOD TRANSFUSION SERVICE (10/05/19) BLOOD TYPING SEROLOGIC ABO (10/05/19) BLOOD TYPING SEROLOGIC RH(D) (10/05/19) CHEST X-RAY 1 VIEW FRONTAL (12/31/14) COMPATIBILITY TEST ANTIGLOB (10/05/19) COMPATIBILITY TEST INCUBATE (10/05/19) COMPATIBILITY TEST SPIN (10/05/19) COMPLETE CBC AUTOMATED (08/08/17) COMPLETE CBC W/AUTO DIFF WBC (01/08/21) COMPREHEN METABOLIC PANEL (01/08/21) CREATINE MB FRACTION (12/31/14) CT ABD & PELV W/CONTRAST (01/08/21) CT ABD & PELVIS W/O CONTRAST (10/05/19) CT CHEST SPINE W/O DYE (05/20/14) CT LUMBAR SPINE W/O DYE (05/20/14) CULTURE AEROBIC IDENTIFY (12/31/14) CULTURE OTHR SPECIMN AEROBIC (12/03/14) ELECTROCARDIOGRAM TRACING (01/08/21) EMERGENCY DEPT VISIT (01/08/21) EMERGENCY DEPT VISIT (08/15/17) EMERGENCY DEPT VISIT (08/08/17) EMERGENCY DEPT VISIT (12/20/14) EMERGENCY DEPT VISIT (12/03/14) EXTREMITY STUDY (12/20/14) HYDRATE IV INFUSION ADD-ON (10/06/17) HYDRATION IV INFUSION INIT (08/15/17) IRON BINDING TEST (10/05/19) METABOLIC PANEL TOTAL CA (10/05/19) MICROBE SUSCEPTIBLE CHIVO (12/31/14) OFFICE O/P EST LOW 20-29 MIN (01/09/18) OFFICE O/P EST SF 10-19 MIN (02/03/14) OFFICE O/P NEW LOW 30-44 MIN (11/04/17) PROTHROMBIN TIME (10/05/19) PT EVAL LOW COMPLEX 20 MIN (12/13/17) RBC ANTIBODY SCREEN (10/05/19) ROUTINE VENIPUNCTURE (01/08/21) THER/PROPH/DIAG INJ IV PUSH (08/08/17) THER/PROPH/DIAG INJ SC/IM (12/31/14) THER/PROPH/DIAG IV INF INIT (01/08/21) THERAPEUTIC EXERCISES (02/04/18) THROMBOPLASTIN TIME PARTIAL (10/05/19) TTE W/DOPPLER COMPLETE (12/08/19) TX/PRO/DX INJ NEW DRUG ADDON (01/08/21) TX/PRO/DX INJ SAME DRUG MANAGER MARKET (01/08/21) URINALYSIS AUTO W/SCOPE (01/08/21) URINE CULTURE/COLONY COUNT (10/06/17) X-RAY EXAM CHEST 1 VIEW (01/08/21) X-RAY EXAM OF KNEE 1 OR 2 (01/09/18) X-RAY EXAM OF LOWER LEG (12/03/14) X-RAY XM ESOPHAGUS 1CNTRST (03/25/17) (1) SBO (small bowel obstruction) SNOMED Code(s): 104164568 Code(s): K56.609 - UNSP INTESTNL OBST, UNSP TO PARTIAL VERSUS COMPLETE OBST Current Visit: Yes (2) Inguinal hernia, incarcerated SNOMED Code(s): 488263224 Code(s): K40.30 - UNIL INGUINAL HERNIA, W OBST, W/O GANGR, NOT SPCF RECUR Current Visit: Yes Problem List Initiated/Reviewed/Updated: Yes Plan: I would like to get the patient's records from [place] in December. After reviewing these, I will have a conversation with the patient and her family members regarding her surgical vs non-surgical options and possible outcomes. At this time she is not septic and this appears to be a chronic issue. Ok to hold off on surgery for now.
[2021-02-28] MEDS: Morphine 4 MG/ML VIAL IVPUSH PRN ×4 (10:53→23:39)
[2021-02-28] MEDS: Ondansetron 4 MG/2 ML SDV IVPUSH PRN ×3 (10:53→20:29)
[2021-03-01] MEDS: Morphine 4 MG/ML VIAL IVPUSH PRN ×2 (06:42→14:12)
[2021-03-01 07:28] LABS: BLOOD UREA NITROGEN,BUN 34 mg/dL (7.0-18.0); CARBON DIOXIDE,CO2 28.7 mmol/L (21.0-32.0); CHLORIDE,CL 98 mmol/L (98-107); GLUCOSE RANDOM 93 mg/dL (74-106); POTASSIUM,K 3.5 mmol/L (3.5-5.1); SODIUM,NA 134 mmol/L (136-145)
--- NOTE | 2021-03-01 08:24 | PCM.PN ---
- General Info Date of Service: 03/01/21 Admission Dx/Problem (Free Text): Admission Diagnosis/Problem Admission Diagnosis/Problem Small bowel obstruction Subjective Update: 85-year-old female admitted for recurrent small bowel obstruction currently being medically managed. Patient has been n.p.o. and receiving normal saline. This morning the patient states she is doing much better, she is passing gas and has had a bowel movement as of this morning. Her abdomen is no longer distended. Patient denies severe pain. Patient is no longer nauseous. Patient states she is ready to begin eating again. - Review of Systems General: Denies: Fever, Chills Pulmonary: Denies: Shortness of Breath, Pleuritic Chest Pain, Cough Cardiovascular: Denies: Chest Pain, Palpitations Gastrointestinal: Reports: Abdominal Pain, Flatus. Denies: Diarrhea, Hematochez ia, Melena, Nausea, Vomiting Genitourinary: Denies: Dysuria Musculoskeletal: Denies: Leg Pain Skin: Reports: Bruising Neurological: Denies: Confusion - Patient Data Vitals - Most Recent: Last Vital Signs Temp 97.2 F 03/01/21 00:00 Pulse 100 03/01/21 00:00 Resp 18 03/01/21 00:00 BP 146/89 H 03/01/21 00:00 Pulse Ox 89 L 03/01/21 00:00 Weight - Most Recent: 95 lb 14.4 oz Lab Results Last 24 Hours: Laboratory Results - last 24 hr 03/01/21 03/01/21 Range/Units 04:53 04:53 WBC 6.25 (4.0-11.0) K/uL RBC 4.09 L (4.30-5.90) M/uL Hgb 12.7 (12.0-16.0) g/dL Hct 38.5 (36.0-46.0) % MCV 94.1 (80.0-98.0) fL MCH 31.1 (27.0-32.0) pg MCHC 33.0 (31.0-37.0) g/dL RDW Std Deviation 51.2 (28.0-62.0) fl RDW Coeff of Ellie 15 (11.0-15.0) % Plt Count 235 (150-400) K/uL MPV 9.40 (7.40-12.00) fL Add Manual Diff YES Nucleated RBC % 0.0 /100WBC Nucleated RBCs # 0 K/uL Sodium 134 L (136-145) mmol/L Potassium 3.5 (3.5-5.1) mmol/L Chloride 98 (98-107) mmol/L Carbon Dioxide 28.7 (21.0-32.0) mmol/L BUN 34 H (7.0-18.0) mg/dL Creatinine 0.6 (0.6-1.0) mg/dL Est Cr Clr Drug Dosing 47.07 mL/min Estimated GFR (MDRD) > 60.0 ml/min Glucose 93 (74-106) mg/dL Calcium 8.3 L (8.5-10.1) mg/dL Total Bilirubin 0.5 (0.2-1.0) mg/dL AST 16 (15-37) IU/L ALT 16 (14-63) IU/L Alkaline Phosphatase 77 (46-116) U/L Total Protein 6.6 (6.4-8.2) g/dL Albumin 2.8 L (3.4-5.0) g/dL Globulin 3.8 (2.6-4.0) g/dL Albumin/Globulin Ratio 0.7 L (0.9-1.6) Med Orders - Current: Current Medications Acetaminophen (Acetaminophen 325 Mg Tab) 650 mg PO Q4H PRN PRN Reason: Pain (Mild 1-3)/fever Albuterol/Ipratropium (Albuterol/Ipratropium 3.0-0.5 Mg/3 Ml Neb Soln) 3 ml NEB Q4HRRT PRN PRN Reason: Shortness Of Breath/wheezing Morphine Sulfate (Morphine 4 Mg/Ml Vial) 4 mg IVPUSH Q2H PRN PRN Reason: Pain Last Admin: 03/01/21 06:42 Dose: 4 mg Documented by: Ondansetron HCl (Ondansetron 4 Mg/2 Ml Sdv) 4 mg IVPUSH Q4H PRN PRN Reason: Nausea Last Admin: 02/28/21 20:29 Dose: 4 mg Documented by: Sodium Chloride (Sodium Chloride 0.9% 10 Ml Syringe) 10 ml FLUSH ASDIRECTED PRN PRN Reason: Keep Vein Open Last Admin: 02/28/21 03:45 Dose: 10 ml Documented by: Sodium Chloride (Sodium Chloride 0.9% 2.5 Ml Syringe) 2.5 ml FLUSH ASDIRECTED PRN PRN Reason: Keep Vein Open Last Admin: 02/28/21 03:45 Dose: 2.5 ml Documented by: Discontinued Medications Piperacillin Sod/Tazobactam (Sod 4.5 gm/ Sodium Chloride) 100 mls @ 100 mls/hr IV ONETIME ONE Stop: 02/28/21 07:16 Last Admin: 02/28/21 06:45 Dose: 100 mls/hr Documented by: Sodium Chloride (Normal Saline) 1,000 mls @ 75 mls/hr IV ASDIRECTED JACI Stop: 02/28/21 21:19 Last Admin: 02/28/21 10:53 Dose: 75 mls/hr Documented by: Iopamidol (Iopamidol 755 Mg/Ml 500 Ml Multipack Bottle) 50 ml IVPUSH ONETIME STA Stop: 02/28/21 05:22 Last Admin: 02/28/21 05:22 Dose: 50 ml Documented by: Morphine Sulfate (Morphine 4 Mg/Ml Vial) 4 mg IVPUSH ONETIME ONE Stop: 02/28/21 04:28 Last Admin: 02/28/21 04:32 Dose: 4 mg Documented by: Morphine Sulfate (Morphine 4 Mg/Ml Vial) 4 mg IVPUSH ONETIME ONE Stop: 02/28/21 06:39 Last Admin: 02/28/21 06:45 Dose: 4 mg Documented by: Morphine Sulfate (Morphine 2 Mg/Ml Syringe) 2 mg IVPUSH Q2H PRN PRN Reason: Pain Ondansetron HCl (Ondansetron 4 Mg/2 Ml Sdv) 4 mg IVPUSH ONETIME ONE Stop: 02/28/21 04:28 Last Admin: 02/28/21 04:32 Dose: 4 mg Documented by: Ondansetron HCl (Ondansetron 4 Mg/2 Ml Sdv) 4 mg IVPUSH ONETIME ONE Stop: 02/28/21 06:39 Last Admin: 02/28/21 06:44 Dose: 4 mg Documented by: - Exam General: Alert, Oriented, Cooperative, Mild Distress HEENT: Pupils Equal, Pupils Reactive Neck: Supple Lungs: Decreased Breath Sounds Cardiovascular: Regular Rate, Regular Rhythm GI/Abdominal Exam: Soft, Non-Tender, No Distention, Other (Decreased bowel sounds. Abdomen is nontender throughout.) Peripheral Pulses: 2+: Dorsalis Pedis (L), Dorsalis Pedis (R) Skin: Ecchymosis Neurological: No New Focal Deficit - Patient Data Lab Results Last 24 hrs: Laboratory Results - last 24 hr 03/01/21 03/01/21 Range/Units 04:53 04:53 WBC 6.25 (4.0-11.0) K/uL RBC 4.09 L (4.30-5.90) M/uL Hgb 12.7 (12.0-16.0) g/dL Hct 38.5 (36.0-46.0) % MCV 94.1 (80.0-98.0) fL MCH 31.1 (27.0-32.0) pg MCHC 33.0 (31.0-37.0) g/dL RDW Std Deviation 51.2 (28.0-62.0) fl RDW Coeff of Ellie 15 (11.0-15.0) % Plt Count 235 (150-400) K/uL MPV 9.40 (7.40-12.00) fL Add Manual Diff YES Nucleated RBC % 0.0 /100WBC Nucleated RBCs # 0 K/uL Sodium 134 L (136-145) mmol/L Potassium 3.5 (3.5-5.1) mmol/L Chloride 98 (98-107) mmol/L Carbon Dioxide 28.7 (21.0-32.0) mmol/L BUN 34 H (7.0-18.0) mg/dL Creatinine 0.6 (0.6-1.0) mg/dL Est Cr Clr Drug Dosing 47.07 mL/min Estimated GFR (MDRD) > 60.0 ml/min Glucose 93 (74-106) mg/dL Calcium 8.3 L (8.5-10.1) mg/dL Total Bilirubin 0.5 (0.2-1.0) mg/dL AST 16 (15-37) IU/L ALT 16 (14-63) IU/L Alkaline Phosphatase 77 (46-116) U/L Total Protein 6.6 (6.4-8.2) g/dL Albumin 2.8 L (3.4-5.0) g/dL Globulin 3.8 (2.6-4.0) g/dL Albumin/Globulin Ratio 0.7 L (0.9-1.6) Result Diagrams: 03/01/21 04:53 03/01/21 04:53 Sepsis Event Note - Evaluation Sepsis Screening Result: No Definite Risk - Focused Exam Vital Signs: Vital Signs Temp Pulse Resp BP Pulse Ox 03/01/21 00:00 97.2 F 100 18 146/89 H 89 L 02/28/21 20:23 98 F 90 18 164/96 H 95 - Problem List & Annotations (1) Abdominal pain SNOMED Code(s): 88613733 Code(s): R10.9 - UNSPECIFIED ABDOMINAL PAIN Status: Acute Current Visit: Yes (2) SBO (small bowel obstruction) SNOMED Code(s): 977555963 Code(s): K56.609 - UNSP INTESTNL OBST, UNSP TO PARTIAL VERSUS COMPLETE OBST Status: Acute Current Visit: Yes - Problem List Review Problem List Initiated/Reviewed/Updated: Yes - My Orders Last 24 Hours: My Active Orders 02/28/21 07:52 Ambulate [RC] ASDIRECTED Oxygen Therapy [RC] PRN VTE/DVT Education [RC] PER UNIT ROUTINE Vital Signs [RC] Q4H Acetaminophen [TylenoL] 650 mg PO Q4H PRN Albuterol/Ipratropium [DuoNeb 3.0-0.5 MG/3 ML] 3 ml NEB Q4HRRT PRN Ondansetron [Zofran] 4 mg IVPUSH Q4H PRN Sequential Compression Device [OM.PC] Per Unit Routine 02/28/21 07:53 Antiembolic Devices [RC] PER UNIT ROUTINE 02/28/21 07:55 RT Aerosol Therapy [RC] ASDIRECTED 02/28/21 09:32 Code Status [Resuscitation Status] Routine 02/28/21 09:46 Morphine 4 mg IVPUSH Q2H PRN 03/01/21 04:53 CBC WITH AUTO DIFF [HEME] AM - Plan Plan:: 85-year-old female with small bowel obstruction: -Patient's clinical status is improving. We will continue with medical management only. As per general surgery recommendations, we will continue supportive therapy. Patient has had a bowel movement. We will start her on clear liquid diet and advance as tolerated. Patient advised to seek elective surgical options once she is discharged as this is likely to recur. Patient states she would like to go to [place] for this. -Clear liquid diet. Normal saline at 75 mL/h. -Zofran for nausea. -Continue home medications including oxygen.
--- NOTE | 2021-03-01 10:59 | PCM.CONSN ---
- General Info Date of Service: 03/01/21 Subjective Update: Patient feels less distended and has no abdominal pain this morning. Her nausea has resolved. She feels "like I could have a BM." - Review of Systems General: Reports: No Symptoms HEENT: Reports: No Symptoms Pulmonary: Reports: No Symptoms Cardiovascular: Reports: No Symptoms Gastrointestinal: Reports: No Symptoms - Patient Data Vitals - Most Recent: Last Vital Signs Temp 36.4 C 03/01/21 08:00 Pulse 93 03/01/21 08:00 Resp 22 H 03/01/21 08:00 BP 106/62 03/01/21 08:00 Pulse Ox 90 L 03/01/21 08:00 Weight - Most Recent: 43.5 kg Lab Results Last 24 Hours: Laboratory Results - last 24 hr 03/01/21 03/01/21 Range/Units 04:53 04:53 WBC 6.25 (4.0-11.0) K/uL RBC 4.09 L (4.30-5.90) M/uL Hgb 12.7 (12.0-16.0) g/dL Hct 38.5 (36.0-46.0) % MCV 94.1 (80.0-98.0) fL MCH 31.1 (27.0-32.0) pg MCHC 33.0 (31.0-37.0) g/dL RDW Std Deviation 51.2 (28.0-62.0) fl RDW Coeff of Ellie 15 (11.0-15.0) % Plt Count 235 (150-400) K/uL MPV 9.40 (7.40-12.00) fL Add Manual Diff YES Neutrophils % (Manual) 25 L (48.0-80.0) % Band Neutrophils % 49 % Lymphocytes % (Manual) 18 (16.0-40.0) % Monocytes % (Manual) 5 (0.0-15.0) % Metamyelocytes % 1 % Myelocytes % 2 % Nucleated RBC % 0.0 /100WBC Absolute Seg Neuts 1.6 (1.4-5.7) Band Neutrophils # 3.1 Lymphocytes # (Manual) 1.1 (0.6-2.4) Monocytes # (Manual) 0.3 (0.0-0.8) Absolute Metamyelocyte 0.1 Absolute Myelocytes 0.1 Nucleated RBCs # 0 K/uL Vacuolated Monocytes 1+ SLIGHT Dohle Bodies 1+ SLIGHT Sodium 134 L (136-145) mmol/L Potassium 3.5 (3.5-5.1) mmol/L Chloride 98 (98-107) mmol/L Carbon Dioxide 28.7 (21.0-32.0) mmol/L BUN 34 H (7.0-18.0) mg/dL Creatinine 0.6 (0.6-1.0) mg/dL Est Cr Clr Drug Dosing 47.07 mL/min Estimated GFR (MDRD) > 60.0 ml/min Glucose 93 (74-106) mg/dL Calcium 8.3 L (8.5-10.1) mg/dL Total Bilirubin 0.5 (0.2-1.0) mg/dL AST 16 (15-37) IU/L ALT 16 (14-63) IU/L Alkaline Phosphatase 77 (46-116) U/L Total Protein 6.6 (6.4-8.2) g/dL Albumin 2.8 L (3.4-5.0) g/dL Globulin 3.8 (2.6-4.0) g/dL Albumin/Globulin Ratio 0.7 L (0.9-1.6) Med Orders - Current: Current Medications Acetaminophen (Acetaminophen 325 Mg Tab) 650 mg PO Q4H PRN PRN Reason: Pain (Mild 1-3)/fever Albuterol/Ipratropium (Albuterol/Ipratropium 3.0-0.5 Mg/3 Ml Neb Soln) 3 ml NEB Q4HRRT PRN PRN Reason: Shortness Of Breath/wheezing Morphine Sulfate (Morphine 4 Mg/Ml Vial) 4 mg IVPUSH Q2H PRN PRN Reason: Pain Last Admin: 03/01/21 06:42 Dose: 4 mg Documented by: Ondansetron HCl (Ondansetron 4 Mg/2 Ml Sdv) 4 mg IVPUSH Q4H PRN PRN Reason: Nausea Last Admin: 02/28/21 20:29 Dose: 4 mg Documented by: Sodium Chloride (Sodium Chloride 0.9% 10 Ml Syringe) 10 ml FLUSH ASDIRECTED PRN PRN Reason: Keep Vein Open Last Admin: 02/28/21 03:45 Dose: 10 ml Documented by: Sodium Chloride (Sodium Chloride 0.9% 2.5 Ml Syringe) 2.5 ml FLUSH ASDIRECTED PRN PRN Reason: Keep Vein Open Last Admin: 02/28/21 03:45 Dose: 2.5 ml Documented by: Discontinued Medications Piperacillin Sod/Tazobactam (Sod 4.5 gm/ Sodium Chloride) 100 mls @ 100 mls/hr IV ONETIME ONE Stop: 02/28/21 07:16 Last Admin: 02/28/21 06:45 Dose: 100 mls/hr Documented by: Sodium Chloride (Normal Saline) 1,000 mls @ 75 mls/hr IV ASDIRECTED JACI Stop: 02/28/21 21:19 Last Admin: 02/28/21 10:53 Dose: 75 mls/hr Documented by: Iopamidol (Iopamidol 755 Mg/Ml 500 Ml Multipack Bottle) 50 ml IVPUSH ONETIME STA Stop: 02/28/21 05:22 Last Admin: 02/28/21 05:22 Dose: 50 ml Documented by: Morphine Sulfate (Morphine 4 Mg/Ml Vial) 4 mg IVPUSH ONETIME ONE Stop: 02/28/21 04:28 Last Admin: 02/28/21 04:32 Dose: 4 mg Documented by: Morphine Sulfate (Morphine 4 Mg/Ml Vial) 4 mg IVPUSH ONETIME ONE Stop: 02/28/21 06:39 Last Admin: 02/28/21 06:45 Dose: 4 mg Documented by: Morphine Sulfate (Morphine 2 Mg/Ml Syringe) 2 mg IVPUSH Q2H PRN PRN Reason: Pain Ondansetron HCl (Ondansetron 4 Mg/2 Ml Sdv) 4 mg IVPUSH ONETIME ONE Stop: 02/28/21 04:28 Last Admin: 02/28/21 04:32 Dose: 4 mg Documented by: Ondansetron HCl (Ondansetron 4 Mg/2 Ml Sdv) 4 mg IVPUSH ONETIME ONE Stop: 02/28/21 06:39 Last Admin: 02/28/21 06:44 Dose: 4 mg Documented by: - Exam Quality Assessment: Supplemental Oxygen General: Alert, Oriented, Cooperative Lungs: Normal Respiratory Effort Cardiovascular: Regular Rate GI/Abdominal Exam: Soft, Non-Tender, No Distention, Other (hernia sac is less distended but still incarcerated. No tenderness to palpation. ) Sepsis Event Note - Evaluation Sepsis Screening Result: No Definite Risk - Focused Exam Vital Signs: Vital Signs Temp Pulse Resp BP Pulse Ox 03/01/21 08:00 36.4 C 93 22 H 106/62 90 L 03/01/21 00:00 36.2 C 100 18 146/89 H 89 L Consult PN Assessment/Plan Procedures: Procedures AIRWAY INHALATION TREATMENT (08/08/17) ASSAY OF AMYLASE (08/08/17) ASSAY OF CK (CPK) (12/31/14) ASSAY OF FERRITIN (10/05/19) ASSAY OF FREE THYROXINE (08/08/17) ASSAY OF LACTIC ACID (01/08/21) ASSAY OF LIPASE (01/08/21) ASSAY OF NATRIURETIC PEPTIDE (10/05/19) ASSAY OF TROPONIN QUANT (01/08/21) ASSAY THYROID STIM HORMONE (08/08/17) AUTOMATED RETICULOCYTE COUNT (10/05/19) BLOOD CULTURE FOR BACTERIA (08/08/17) BLOOD TRANSFUSION SERVICE (10/05/19) BLOOD TYPING SEROLOGIC ABO (10/05/19) BLOOD TYPING SEROLOGIC RH(D) (10/05/19) CHEST X-RAY 1 VIEW FRONTAL (12/31/14) COMPATIBILITY TEST ANTIGLOB (10/05/19) COMPATIBILITY TEST INCUBATE (10/05/19) COMPATIBILITY TEST SPIN (10/05/19) COMPLETE CBC AUTOMATED (08/08/17) COMPLETE CBC W/AUTO DIFF WBC (01/08/21) COMPREHEN METABOLIC PANEL (01/08/21) CREATINE MB FRACTION (12/31/14) CT ABD & PELV W/CONTRAST (01/08/21) CT ABD & PELVIS W/O CONTRAST (10/05/19) CT CHEST SPINE W/O DYE (05/20/14) CT LUMBAR SPINE W/O DYE (05/20/14) CULTURE AEROBIC IDENTIFY (12/31/14) CULTURE OTHR SPECIMN AEROBIC (12/03/14) ELECTROCARDIOGRAM TRACING (01/08/21) EMERGENCY DEPT VISIT (01/08/21) EMERGENCY DEPT VISIT (08/15/17) EMERGENCY DEPT VISIT (08/08/17) EMERGENCY DEPT VISIT (12/20/14) EMERGENCY DEPT VISIT (12/03/14) EXTREMITY STUDY (12/20/14) HYDRATE IV INFUSION ADD-ON (10/06/17) HYDRATION IV INFUSION INIT (08/15/17) IRON BINDING TEST (10/05/19) METABOLIC PANEL TOTAL CA (10/05/19) MICROBE SUSCEPTIBLE CHIVO (12/31/14) OFFICE O/P EST LOW 20-29 MIN (01/09/18) OFFICE O/P EST SF 10-19 MIN (02/03/14) OFFICE O/P NEW LOW 30-44 MIN (11/04/17) PROTHROMBIN TIME (10/05/19) PT EVAL LOW COMPLEX 20 MIN (12/13/17) RBC ANTIBODY SCREEN (10/05/19) ROUTINE VENIPUNCTURE (01/08/21) THER/PROPH/DIAG INJ IV PUSH (08/08/17) THER/PROPH/DIAG INJ SC/IM (12/31/14) THER/PROPH/DIAG IV INF INIT (01/08/21) THERAPEUTIC EXERCISES (02/04/18) THROMBOPLASTIN TIME PARTIAL (10/05/19) TTE W/DOPPLER COMPLETE (12/08/19) TX/PRO/DX INJ NEW DRUG ADDON (01/08/21) TX/PRO/DX INJ SAME DRUG SQUEEZER OPERATOR (01/08/21) URINALYSIS AUTO W/SCOPE (01/08/21) URINE CULTURE/COLONY COUNT (10/06/17) X-RAY EXAM CHEST 1 VIEW (01/08/21) X-RAY EXAM OF KNEE 1 OR 2 (01/09/18) X-RAY EXAM OF LOWER LEG (12/03/14) X-RAY XM ESOPHAGUS 1CNTRST (03/25/17) (1) SBO (small bowel obstruction) SNOMED Code(s): 824258597 Code(s): K56.609 - UNSP INTESTNL OBST, UNSP TO PARTIAL VERSUS COMPLETE OBST Current Visit: Yes (2) Inguinal hernia, incarcerated SNOMED Code(s): 560787448 Code(s): K40.30 - UNIL INGUINAL HERNIA, W OBST, W/O GANGR, NOT SPCF RECUR Current Visit: Yes Problem List Initiated/Reviewed/Updated: Yes My Orders Last 24 Hours: My Active Orders 02/28/21 16:35 Communication Order [RC] ROUTINE Plan: I read the patient's outside records from her hospitalization in December. They had tried under sedation to place an NG but were unable to do so due to the tube coiling in the esophagus. With conservative management she resolved on her own. The surgeon there felt that due to her COPD CHF and malnourished state she was a very high risk surgical candidate. I agree with the surgeons assessment. She is resolving with conservative management and I do not think I will offer surgery at this point in time. I did visit with the patient about whether or not she would want surgery in an emergency situation in order to save her life. She states that she would rather visit with her children if this should occur then to make a decision now. I explained that the hernia could be contributing to her frequent small bowel obstructions and it is worth visiting with a surgeon on an outpatient basis about repair. Given her medical issues however this would need to be done at a larger facility. The patient would like to go to [place]. At this point in time I would advance her diet once she starts passing gas or has a bowel movement. Would start with [facility]ars and advance from there. Can be discharged home with outpatient follow-up in [place] with a surgeon. I attempted to call her family member listed as her contact on the chart but had no answer.
[2021-03-02] MEDS: Morphine 4 MG/ML VIAL IVPUSH PRN ×3 (00:26→15:11)
[2021-03-02] MEDS ORDERED: Levothyroxine 125 MCG Tab PO SCH (07:30)
[2021-03-02] MEDS ORDERED: Fluticasone/Salmeterol 250-50 MCG Inhalation Powder 14/Diskus INH SCH (09:00)
[2021-03-02] MEDS ORDERED: Hydrochlorothiazide 12.5 MG Cap PO SCH (09:00)
[2021-03-02] MEDS ORDERED: Calcium Carbonate/Vitamin D3 1500 MG-400 Units Tab PO SCH (09:00)
[2021-03-02] MEDS ORDERED: NALOXEGOL OXALATE 25 MG PO SCH (09:00)
[2021-03-02] MEDS ORDERED: Cyanocobalamin (Vitamin B12) 500 MCG Tab PO SCH (09:00)
[2021-03-02] MEDS ORDERED: Cyclosporine [Restasis] EYEBOTH SCH (09:00)
[2021-03-02] MEDS ORDERED: Omeprazole 20 MG Cap.CR PO SCH (09:00)
--- NOTE | 2021-03-02 10:33 | PCM.DCSUM1 ---
Discharge Summary - Hospital Course Free Text/Narrative:: 85-year-old female presented to the ER with complaints of abdominal pain, distention, nausea and vomiting. Patient was admitted for small bowel obstruction and managed conservatively with fluids and kept NPO. Within 24 hours, patient's pain subsided and distention improved. Patient had her first episode of SBO in December and was managed conservatively as well in [facility]. CT abdomen showed right inguinal hernia containing loop of bowel. Patient was started on clear liquid diet and advance to regular diet. As per outside records from her December hospitalization, in [facility], they tried sedation to place NG tube but were unable to to coiling and esophagus. Resolved with conservative management. Surgeon felt that due to her COPD, CHF and malnourished state that she was very high risk surgical candidate. Throughout the visit patient did not clarify what she would like done in an emergency situation and repeated that she would like to speak with her children first. Patient was advised that this is likely to recur if she does not have it surgically repaired. The patient expressed understanding and stated she would like to go to [place] to have her hernia repaired. Patient is now tolerating a regular diet, passing gas and has had bowel movements. Patient stable for discharge. Patient advised to follow-up with her [place] surgeon for elective surgery. - Discharge Data Discharge Date: 03/02/21 Discharge Disposition: Home, Self-Care 01 Condition: Stable - Referral to Home Health Primary Care Physician: PCP None - Discharge Diagnosis/Problem(s) (1) Abdominal pain SNOMED Code(s): 17142376 ICD Code: R10.9 - UNSPECIFIED ABDOMINAL PAIN Status: Acute Current Visit: Yes (2) SBO (small bowel obstruction) SNOMED Code(s): 471139712 ICD Code: K56.609 - UNSP INTESTNL OBST, UNSP TO PARTIAL VERSUS COMPLETE OBST Status: Acute Current Visit: Yes - Patient Instructions Diet: Regular Diet as Tolerated Notify Provider of: Fever, Increased Pain, Nausea and/or Vomiting Other/Special Instructions: If you experience stomach distention, abdominal pain, nausea, vomiting, unable to pass gas or stool, fever, chills, chest pain or palpitations you must seek medical attention immediately. As discussed, your small bowel obstruction may recur if you do not have it repaired. Please follow-up with your surgeon in [place] for elective surgery. It is also very important for you to discuss with your family what you would like to do if the situation was to arise where you required emergency surgery. - Discharge Plan *PRESCRIPTION DRUG MONITORING PROGRAM REVIEWED*: Not Applicable *COPY OF PRESCRIPTION DRUG MONITORING REPORT IN PATIENT MERLE: Not Applicable Home Medications: Home Meds Levothyroxine 125 mcg PO ACBREAKFAST 12/03/14 [History] cycloSPORINE [Restasis] 1 dose EYEBOTH BID 12/03/14 [History] Calcium Carbonate/Vitamin D3 [Calcium 600 + Vit D Tablet] 2 tab PO BID 08/08/17 [History] Cyanocobalamin (Vitamin B12) [Vitamin B12] 1,000 mcg PO DAILY 08/08/17 [History] dilTIAZem HCL [Cardizem] 60 mg PO QID 08/08/17 [History] hydroCHLOROthiazide [Hydrochlorothiazide] 12.5 mg PO DAILY 08/08/17 [History] Fluticasone Propion/Salmeterol [Fluticasone-Salmeterol 250-50] 1 inh INH BID 10/06/19 [History] Naloxegol Oxalate [Movantik] 25 mg PO DAILY 10/06/19 [History] Hydrocodone/Acetaminophen [HYDROcodone-Acetaminophen 7.5-325 MG] 1 tab PO Q4H PRN 03/01/21 [History] Omeprazole 20 mg PO DAILY 03/01/21 [History] Oxygen Therapy Mode: Nasal Cannula Patient Handouts: Inguinal Hernia, Adult, [id number], Bowel Obstruction, [id number], Chronic Obstructive Pulmonary Disease, [id number] Forms: ED Department Discharge Referrals: PCP,None [Primary Care Provider] - - Discharge Summary/Plan Comment DC Time >30 min.: Yes Total # of Minutes for Discharge Time: 45 - General Info Admission Dx/Problem (Free Text: Admission Diagnosis/Problem Admission Diagnosis/Problem Small bowel obstruction - Review of Systems General: Denies: Fever, Chills HEENT: Denies: Headaches Pulmonary: Denies: Cough Cardiovascular: Denies: Chest Pain, Palpitations Gastrointestinal: Reports: Flatus. Denies: Abdominal Pain, Constipation, Diarrhea, Difficulty Swallowing, Hematochezia, Melena, Nausea, Vomiting Genitourinary: Denies: Dysuria Musculoskeletal: Denies: Leg Pain Skin: Denies: Cyanosis Neurological: Denies: Confusion, Dizziness, Headache - Patient Data Vitals - Most Recent: Last Vital Signs Temp 97.7 F 03/02/21 08:00 Pulse 80 03/02/21 08:00 Resp 16 03/02/21 08:00 BP 171/91 H 03/02/21 08:00 Pulse Ox 91 L 03/02/21 08:00 Weight - Most Recent: 95 lb 14.4 oz I&O - Last 24 hours: Intake & Output 03/01/21 03/02/21 03/02/21 22:59 06:59 14:59 Intake Total 600 1125 Balance 600 1125 Med Orders - Current: Current Medications Acetaminophen (Acetaminophen 325 Mg Tab) 650 mg PO Q4H PRN PRN Reason: Pain (Mild 1-3)/fever Albuterol/Ipratropium (Albuterol/Ipratropium 3.0-0.5 Mg/3 Ml Neb Soln) 3 ml NEB Q4HRRT PRN PRN Reason: Shortness Of Breath/wheezing Calcium Carbonate (Calcium Carbonate/Vitamin D3 1500 Mg-400 Units Tab) 2 tab PO BID [facility] Last Admin: 03/02/21 08:57 Dose: 2 tab Documented by: Cyanocobalamin (Cyanocobalamin (Vitamin B12) 500 Mcg Tab) 1,000 mcg PO DAILY [facility] Last Admin: 03/02/21 08:59 Dose: 1,000 mcg Documented by: Diltiazem HCl (Diltiazem Ir 60 Mg Tab) 60 mg PO QID [facility] Hydrochlorothiazide (Hydrochlorothiazide 12.5 Mg Cap) 12.5 mg PO DAILY [facility] Last Admin: 03/02/21 08:58 Dose: 12.5 mg Documented by: Levothyroxine Sodium (Levothyroxine 125 Mcg Tab) 125 mcg PO ACBREAKFAST [facility] Last Admin: 03/02/21 08:58 Dose: 125 mcg Documented by: Morphine Sulfate (Morphine 4 Mg/Ml Vial) 4 mg IVPUSH Q2H PRN PRN Reason: Pain Last Admin: 03/02/21 08:59 Dose: 4 mg Documented by: Omeprazole (Omeprazole 20 Mg Cap.Cr) 20 mg PO DAILY [facility] Last Admin: 03/02/21 08:58 Dose: 20 mg Documented by: Ondansetron HCl (Ondansetron 4 Mg/2 Ml Sdv) 4 mg IVPUSH Q4H PRN PRN Reason: Nausea Last Admin: 02/28/21 20:29 Dose: 4 mg Documented by: Cyclosporine [ (Restasis]) 1 each EYEBOTH BID [facility] Last Admin: 03/02/21 09:00 Dose: Not Given Documented by: Naloxegol Oxalate 25 (Mg Tablet) 1 each PO DAILY [facility] Last Admin: 03/02/21 09:00 Dose: Not Given Documented by: Fluticasone/Salmeterol (Fluticasone/Salmeterol 250-50 Mcg Inhalation Powder 14/Diskus) 1 puff INH BID [facility] Last Admin: 03/02/21 08:59 Dose: 1 puff Documented by: Sodium Chloride (Sodium Chloride 0.9% 10 Ml Syringe) 10 ml FLUSH ASDIRECTED PRN PRN Reason: Keep Vein Open Last Admin: 02/28/21 03:45 Dose: 10 ml Documented by: Sodium Chloride (Sodium Chloride 0.9% 2.5 Ml Syringe) 2.5 ml FLUSH ASDIRECTED PRN PRN Reason: Keep Vein Open Last Admin: 02/28/21 03:45 Dose: 2.5 ml Documented by: Discontinued Medications Piperacillin Sod/Tazobactam (Sod 4.5 gm/ Sodium Chloride) 100 mls @ 100 mls/hr IV ONETIME ONE Stop: 02/28/21 07:16 Last Admin: 02/28/21 06:45 Dose: 100 mls/hr Documented by: Sodium Chloride (Normal Saline) 1,000 mls @ 75 mls/hr IV ASDIRECTED [facility] Stop: 02/28/21 21:19 Last Admin: 02/28/21 10:53 Dose: 75 mls/hr Documented by: Iopamidol (Iopamidol 755 Mg/Ml 500 Ml Multipack Bottle) 50 ml IVPUSH ONETIME STA Stop: 02/28/21 05:22 Last Admin: 02/28/21 05:22 Dose: 50 ml Documented by: Morphine Sulfate (Morphine 4 Mg/Ml Vial) 4 mg IVPUSH ONETIME ONE Stop: 02/28/21 04:28 Last Admin: 02/28/21 04:32 Dose: 4 mg Documented by: Morphine Sulfate (Morphine 4 Mg/Ml Vial) 4 mg IVPUSH ONETIME ONE Stop: 02/28/21 06:39 Last Admin: 02/28/21 06:45 Dose: 4 mg Documented by: Morphine Sulfate (Morphine 2 Mg/Ml Syringe) 2 mg IVPUSH Q2H PRN PRN Reason: Pain Ondansetron HCl (Ondansetron 4 Mg/2 Ml Sdv) 4 mg IVPUSH ONETIME ONE Stop: 02/28/21 04:28 Last Admin: 02/28/21 04:32 Dose: 4 mg Documented by: Ondansetron HCl (Ondansetron 4 Mg/2 Ml Sdv) 4 mg IVPUSH ONETIME ONE Stop: 02/28/21 06:39 Last Admin: 02/28/21 06:44 Dose: 4 mg Documented by: - Exam Quality Assessment: Reports: Supplemental Oxygen General: Reports: Alert, Oriented, Cooperative, No Acute Distress HEENT: Reports: Pupils Equal, Pupils Reactive Neck: Reports: Supple Lungs: Reports: Clear to Auscultation, Decreased Breath Sounds Cardiovascular: Reports: Regular Rate, Regular Rhythm GI/Abdominal Exam: Normal Bowel Sounds, Soft, Non-Tender, No Distention. No: Rebound Back Exam: Reports: Normal Inspection, Other (0.5 cm midline superficial skin break above buttocks.) Extremities: No Pedal Edema. No: Prema's Sign, Leg Pain Neurological: Reports: No New Focal Deficit
[2021-03-02 11:55] VITALS: BP 147/74; PULSE 95
[2021-03-02] MEDS ORDERED: Diltiazem IR 60 MG Tab PO SCH (12:00)
== END 2021-03-02 15:30 | disposition home or self-care (01) | DRG 394 ==
LOC: MW.ED 03:20 → MW.MS 06:52
PROVIDERS: ADMIT Internal Medicine; ATTEND Internal Medicine
DX: K56.609 Unspecified intestinal obstruction, unspecified as to partial versus complete obstruction (principal); K44.9 Diaphragmatic hernia without obstruction or gangrene; R10.9 Unspecified abdominal pain; D72.829 Elevated white blood cell count, unspecified; K40.30 Unilateral inguinal hernia, with obstruction, without gangrene, not specified as recurrent; E46 Unspecified protein-calorie malnutrition; Z68.1 Body mass index [BMI] 19.9 or less, adult; H54.7 Unspecified visual loss; I49.9 Cardiac arrhythmia, unspecified; Z66 Do not resuscitate; I11.0 Hypertensive heart disease with heart failure; I50.9 Heart failure, unspecified; E03.9 Hypothyroidism, unspecified; J43.9 Emphysema, unspecified; Z20.822 Contact with and (suspected) exposure to COVID-19; Z88.1 Allergy status to other antibiotic agents; Z88.5 Allergy status to narcotic agent; Z79.899 Other long term (current) drug therapy; Z79.82 Long term (current) use of aspirin; Z79.890 Hormone replacement therapy; Z99.81 Dependence on supplemental oxygen
CPT/HCPCS: 36415; 74177; 80053; 81001; 83605; 83690; 84484; 85025; 96374; 96375; 96376; 99285; J2270 ×2; J2405 ×2; J2543; Q9967; U0002; 93005; 99223; 99232; 99238; A9270-GY; J7030

== ENCOUNTER 2021-03-18 02:15 | Emergency (ER) | payer MEDICARE, OTHER ==
[2021-03-18] MEDS ORDERED: Sodium Chloride 0.9% 2.5 ML Syringe FLUSH PRN (02:49)
[2021-03-18] MEDS ORDERED: Sodium Chloride 0.9% 10 ML Syringe FLUSH PRN (02:49)
[2021-03-18] MEDS ORDERED: Sodium Chloride 0.9% 1,000 ML IV ONE (02:55)
[2021-03-18] MEDS ORDERED: Ondansetron 4 MG/2 ML SDV IVPUSH ONE ×2 (02:55→05:13)
[2021-03-18] MEDS ORDERED: fentaNYL 50 MCG/ML SDV IVPUSH ONE ×3 (02:55→06:17)
[2021-03-18 03:20] LABS: BLOOD UREA NITROGEN,BUN 22 mg/dL (7.0-18.0); CARBON DIOXIDE,CO2 28.9 mmol/L (21.0-32.0); CHLORIDE,CL 94 mmol/L (98-107); GLUCOSE RANDOM 155 mg/dL (74-106); LIPASE 67 U/L (73-393); POTASSIUM,K 4.1 mmol/L (3.5-5.1); SODIUM,NA 131 mmol/L (136-145)
[2021-03-18] MEDS ORDERED: Iopamidol 755 MG/ML 500 ML Multipack Bottle IVPUSH ONE (03:53)
[2021-03-18] MEDS ORDERED: Morphine 4 MG/ML VIAL IVPUSH ONE ×2 (05:13→08:47)
--- NOTE | 2021-03-18 05:18 | CT ---
INDICATION: Abdominal pain TECHNIQUE: Axial images were obtained from the diaphragm to the pubic symphysis. Reformats were obtained in the coronal and sagittal plane. IV Contrast: 100 cc Isovue 370 Oral Contrast: None COMPARISON: Abdomen and pelvis CT 02/28/2021 FINDINGS: Lower chest: Linear scarring within the lung bases. Multiple bulla within the right lung base. Liver: Unremarkable. Normal in size and attenuation. No masses. Gallbladder and bile ducts: Cholelithiasis without pericholecystic inflammation. Spleen: Unremarkable. Normal in size without mass. Pancreas: Moderate pancreatic atrophy. Adrenal glands: Unremarkable. No nodules. Kidneys: Symmetric renal enhancement with right renal cysts. Vasculature: Atherosclerosis without abdominal aortic aneurysm. GI tract: Large hiatal hernia with distended fluid-filled stomach. Extensive dilated loops of small bowel with a loop in a hernia in the right inguinal region. This does extend somewhat laterally suggesting a femoral hernia. Associated trace free fluid. Pelvis: Likely prior hysterectomy. Bones: Status post left total hip replacement. Marked degenerative changes lumbar spine with prominent leftward curvature of the lower lumbar spine. IMPRESSION: 1. Prominent dilated loops of small bowel consistent with a small-bowel obstruction, likely secondary to an incarcerated right femoral hernia. Appearance is fairly similar to the study of 18 days prior. 2. Other incidental findings as detailed above. Please note that all CT scans at this facility use dose modulation, iterative reconstruction, and/or weight-based dosing when appropriate to reduce radiation dose to as low as reasonably achievable. Dictated by Chucho Russell MD @ 03/18/2021 5:17:18 AM (Electronically Signed)
--- NOTE | 2021-03-18 06:25 | EDM.PDOC ---
<Devin Lim - Last Filed: 03/18/21 06:43> ED HPI GENERAL MEDICAL PROBLEM - General Chief Complaint: Abdominal Pain Stated Complaint: ABDOMINAL PAIN Time Seen by Provider: 03/18/21 02:46 - History of Present Illness INITIAL COMMENTS - FREE TEXT/NARRATIVE: HISTORY AND PHYSICAL: History of present illness: This is an 85-year-old female with a history significant for CHF, COPD on 4 L of O2 nasal cannula baseline, hiatal hernia, inguinal hernia, bowel obstruction in the past secondary to a femoral hernia that was treated conservatively, presents ER today with complaints of nausea, vomiting and severe abdominal pain that began yesterday. Patient describes the pain as diffuse in nature. She reports she feels bloated. She reports no diarrhea. Patient reports that she has not passed flatus yesterday. Patient denies any recent fevers, shakes, chills. Patient denies any dysuria, frequency, urgency. Patient denies any hematuria, melena, prior blood per rectum. Patient has any hematochezia or coffee-ground emesis or hematemesis. Patient was recently admitted to [facility] for a similar presentation and was unable to be transferred to a higher level of care secondary to lack of bed availability. Patient was admitted to [facility] for observation and surgical evaluation. Patient initially was unsure about wanting surgical intervention so conservative management was initially instituted and surgery was deferred. Patient's symptoms resolved with conservative management and the patient was discharged to home with instructions informing her that she would likely have recurrent symptoms that she would need definitive management. Patient reports that she had a long conversation with her family doctor and they made the ultimate decision that they would want to have surgery done and they were in the process of getting referred to [place] for definitive surgical consultation and management. Review of systems: As per history of present illness and below otherwise all systems reviewed and negative. Past medical history: As per history of present illness and as reviewed below otherwise noncontributory. Surgical history: As per history of present illness and as reviewed below otherwise noncontributory. Social history: No reported history of drug abuse. Family history: As per history of present illness and as reviewed below otherwise noncontributory. Physical exam: This patient was seen and evaluated during the 2019 SARS-CoV-2 novel coronavirus pandemic period. Community viral transmission is ongoing at time of this encounter and the emergency department is operating under pandemic response procedures. Constitutional: Patient is oriented to person, place, and time. Appears well- developed and well-nourished. No distress. HEENT: Moist mucous membranes Head: Normocephalic and atraumatic Eyes: Right eye exhibits no discharge. Left eye exhibits no discharge. No scleral icterus Neck: Normal range of motion. No tracheal deviation present. Cardiovascular: Normal rate and regular rhythm. Pulmonary: Effort normal, no respiratory distress. Abdominal: Soft, distended, diffuse tenderness to palpation, diminished bowel sounds, no rebound or guarding but moderate tenderness to palpation Musculoskeletal: Normal range of motion Neurologic: Alert and oriented to person, place and time. Skin: [place], warm and dry. Psychiatric: Normal mood and affect. Behavior is normal. Judgment and thought content normal. Nursing note and vital signs have been reviewed Diagnostics: CBC, CMP, lactic acid are all relatively normal except for mildly elevated WBC count of 13,000. Patient has a normal anion gap, normal bicarb, normal lactic acid, normal BUN and creatinine. Therapeutics: CT scan of the abdomen pelvis: Prominent dilated loops of small bowel consistent with a small bowel obstruction, likely secondary to incarcerated right femoral hernia. Appears as fairly similar to the study of 18 days prior. Assessment and plan: This is an 85-year-old female who presents ER today with severe abdominal pain and CT scan consistent with small bowel obstruction secondary to a incarcerated femoral hernia. Patient has received fentanyl 25 mg IV by EMS and received an additional 2 doses of fentanyl 50 mcg IV here in the ED as well as morphine 4 mg IV with still significant pain discomfort. Patient is receiving additional 50 mcg of fentanyl IV during the dictation of this note. Patient is also receive Zofran 4 mg IV x2. I have discussed with the patient the results of the CT scan and she is informing that she would like to be transferred to [facility] for definitive management of her incarcerated femoral hernia and small bowel obstruction. I have discussed the case with Dr. Serra at [facility] who has agreed to assist this with excepting transfer to this patient for definitive management. Definitive disposition and diagnosis as appropriate pending reevaluation and review of above. abdomen Pain Score (Numeric/FACES): 9 - Related Data Allergies Allergy/AdvReac Type Severity Reaction Status Date / Time azithromycin Allergy Anaphylactic Verified 03/18/21 02:42 Shock codeine Allergy Other Verified 03/18/21 02:42 Home Meds: Home Meds Levothyroxine 125 mcg PO ACBREAKFAST 12/03/14 [History] cycloSPORINE [Restasis] 1 dose EYEBOTH BID 12/03/14 [History] Calcium Carbonate/Vitamin D3 [Calcium 600 + Vit D Tablet] 2 tab PO BID 08/08/17 [History] Cyanocobalamin (Vitamin B12) [Vitamin B12] 1,000 mcg PO DAILY 08/08/17 [History] dilTIAZem HCL [Cardizem] 60 mg PO QID 08/08/17 [History] hydroCHLOROthiazide [Hydrochlorothiazide] 12.5 mg PO DAILY 08/08/17 [History] Fluticasone Propion/Salmeterol [Fluticasone-Salmeterol 250-50] 1 inh INH BID 10/06/19 [History] Naloxegol Oxalate [Movantik] 25 mg PO DAILY 10/06/19 [History] Hydrocodone/Acetaminophen [HYDROcodone-Acetaminophen 7.5-325 MG] 1 tab PO Q4H PRN 03/01/21 [History] Omeprazole 20 mg PO DAILY 03/01/21 [History] Past Medical History HEENT History: Reports: Impaired Vision Cardiovascular History: Reports: Arrhythmia, Heart Failure, Hypertension Other Cardiovascular History: Palpitations. ACS. Emphysema Respiratory History: Reports: Asthma, COPD, Other (See Below) Other Respiratory History: use oxygen at home 2-4L Gastrointestinal History: Reports: Bowel Obstruction, Hemorrhoids, Hiatal Hernia Genitourinary History: Reports: None C[employer]IED [employer]CH[employer]ICIAN History: Reports: Musculoskeletal History: Reports: None Other Musculoskeletal History: fx to R leg, THRA Right Neurological History: Reports: None Psychiatric History: Reports: None Endocrine/Metabolic History: Reports: Hypothyroidism Hematologic History: Reports: Blood Transfusion(s) Immunologic History: Reports: None Oncologic (Cancer) History: Reports: None Dermatologic History: Reports: None - Infectious Disease History Infectious Disease History: Reports: Chicken Pox, Measles, Mumps - Past Surgical History Head Surgeries/Procedures: Reports: None HEENT Surgical History: Reports: Naso-Sinus Surgery, Tonsillectomy Other GI Surgeries/Procedures: Rectal Surgery for Hemorrhoids in 2018 or 2019, patient can't recall Other Musculoskeletal Surgeries/Procedures:: Left Social & Family History - Family History Family Medical History: No Pertinent Family History - Tobacco Use Tobacco Use Status *Q: Never Tobacco User - Caffeine Use Caffeine Use: Reports: Coffee, Tea - Recreational Drug Use Recreational Drug Use: No ED ROS GENERAL - Review of Systems Review Of Systems: See Below ED EXAM, GENERAL - Physical Exam Exam: See Below #1 Interpretation EKG Date: 03/18/21 Time: 06:36 EKG Interpretation Comments: EKG: As interpreted by ER physician: Raphael: Nonspecific ST-T wave abnormalities Normal axis No evidence of ST elevation WI Normal sinus tachycardia heart rate of 102 Departure - Departure Time of Disposition: 06:35 Disposition: DC/Tfer to Acute Hospital 02 Condition: Fair Clinical Impression: Small bowel obstruction, Incarcerated femoral hernia - Discharge Information Referrals: PCP,None [Primary Care Provider] - Forms: ED Department Discharge Sepsis Event Note (ED) - Evaluation Sepsis Screening Result: No Definite Risk <Casper Calero - Last Filed: 03/18/21 07:57> Course - Vital Signs Last Recorded V/S: Last Vital Signs Temp 36.0 C L 03/18/21 02:15 Pulse 103 H 03/18/21 06:43 Resp 20 03/18/21 06:43 BP 147/98 H 03/18/21 06:43 Pulse Ox 91 L 03/18/21 06:43 - Orders/Labs/Meds Orders: Active Orders 24 hr Category Date Time Status Sodium Chloride 0.9% [Saline Flush] Med 03/18/21 02:49 Active 10 ml FLUSH ASDIRECTED PRN Sodium Chloride 0.9% [Saline Flush] Med 03/18/21 02:49 Active 2.5 ml FLUSH ASDIRECTED PRN Saline Lock Insert [OM.PC] Stat Oth 03/18/21 02:49 Ordered Medication Orders Sodium Chloride (Sodium Chloride 0.9% 10 Ml Syringe) 10 ml FLUSH ASDIRECTED PRN PRN Reason: Keep Vein Open Last Admin: 03/18/21 07:38 Dose: 10 ml Documented by: GREGORIA Sodium Chloride (Sodium Chloride 0.9% 2.5 Ml Syringe) 2.5 ml FLUSH ASDIRECTED PRN PRN Reason: Keep Vein Open Last Admin: 03/18/21 07:38 Dose: 2.5 ml Documented by: GREGORIA Labs: Laboratory Tests 03/18/21 03/18/2122 Range/Units 02:33 02:33 03:09 WBC 13.52 H (4.0-11.0) K/uL RBC 4.46 (4.30-5.90) M/uL Hgb 14.0 (12.0-16.0) g/dL Hct 42.1 (36.0-46.0) % MCV 94.4 (80.0-98.0) fL MCH 31.4 (27.0-32.0) pg MCHC 33.3 (31.0-37.0) g/dL RDW Std Deviation 49.9 (28.0-62.0) fl RDW Coeff of Ellie 15 (11.0-15.0) % Plt Count 301 (150-400) K/uL MPV 8.60 (7.40-12.00) fL Neut % (Auto) 90.9 H (48.0-80.0) % Lymph % (Auto) 6.7 L (16.0-40.0) % Harper % (Auto) 2.2 (0.0-15.0) % Eos % (Auto) 0.1 (0.0-7.0) % Baso % (Auto) 0.1 (0.0-1.5) % Neut # (Auto) 12.3 H (1.4-5.7) K/uL Lymph # (Auto) 0.9 (0.6-2.4) K/uL Harper # (Auto) 0.3 (0.0-0.8) K/uL Eos # (Auto) 0.0 (0.0-0.7) K/uL Baso # (Auto) 0.0 (0.0-0.1) K/uL Nucleated RBC % 0.0 /100WBC Nucleated RBCs # 0 K/uL Sodium 131 L (136-145) mmol/L Potassium 4.1 (3.5-5.1) mmol/L Chloride 94 L (98-107) mmol/L Carbon Dioxide 28.9 (21.0-32.0) mmol/L BUN 22 H (7.0-18.0) mg/dL Creatinine 0.6 (0.6-1.0) mg/dL Est Cr Clr Drug Dosing 44.18 mL/min Estimated GFR (MDRD) > 60.0 ml/min Glucose 155 H (74-106) mg/dL Lactic Acid (0.4-2.0) mmol/L Calcium 8.9 (8.5-10.1) mg/dL Magnesium 2.1 (1.8-2.4) mg/dL Total Bilirubin 0.3 (0.2-1.0) mg/dL AST 20 (15-37) IU/L ALT 20 (14-63) IU/L Alkaline Phosphatase 144 H (46-116) U/L Total Protein 7.9 (6.4-8.2) g/dL Albumin 3.4 (3.4-5.0) g/dL Globulin 4.5 H (2.6-4.0) g/dL Albumin/Globulin Ratio 0.8 L (0.9-1.6) Lipase 67 L (73-393) U/L Urine Color Urine Appearance Urine pH (5.0-8.0) Ur Specific [place] (1.001-1.035) Urine Protein (NEGATIVE) mg/dL Urine Glucose (UA) (NEGATIVE) mg/dL Urine Ketones (NEGATIVE) mg/dL Urine Occult Blood (NEGATIVE) Urine Nitrite (NEGATIVE) Urine Bilirubin (NEGATIVE) Urine Urobilinogen (<2.0) EU/dL Ur Leukocyte Esterase (NEGATIVE) SARS-CoV-2 RNA (CARLA) NEGATIVE (NEGATIVE) 03/18/21 03/18/21 Range/Units 03:10 06:26 WBC (4.0-11.0) K/uL RBC (4.30-5.90) M/uL Hgb (12.0-16.0) g/dL Hct (36.0-46.0) % MCV (80.0-98.0) fL MCH (27.0-32.0) pg MCHC (31.0-37.0) g/dL RDW Std Deviation (28.0-62.0) fl RDW Coeff of Ellie (11.0-15.0) % Plt Count (150-400) K/uL MPV (7.40-12.00) fL Neut % (Auto) (48.0-80.0) % Lymph % (Auto) (16.0-40.0) % Harper % (Auto) (0.0-15.0) % Eos % (Auto) (0.0-7.0) % Baso % (Auto) (0.0-1.5) % Neut # (Auto) (1.4-5.7) K/uL Lymph # (Auto) (0.6-2.4) K/uL Harper # (Auto) (0.0-0.8) K/uL Eos # (Auto) (0.0-0.7) K/uL Baso # (Auto) (0.0-0.1) K/uL Nucleated RBC % /100WBC Nucleated RBCs # K/uL Sodium (136-145) mmol/L Potassium (3.5-5.1) mmol/L Chloride (98-107) mmol/L Carbon Dioxide (21.0-32.0) mmol/L BUN (7.0-18.0) mg/dL Creatinine (0.6-1.0) mg/dL Est Cr Clr Drug Dosing mL/min Estimated GFR (MDRD) ml/min Glucose (74-106) mg/dL Lactic Acid 1.0 (0.4-2.0) mmol/L Calcium (8.5-10.1) mg/dL Magnesium (1.8-2.4) mg/dL Total Bilirubin (0.2-1.0) mg/dL AST (15-37) IU/L ALT (14-63) IU/L Alkaline Phosphatase (46-116) U/L Total Protein (6.4-8.2) g/dL Albumin (3.4-5.0) g/dL Globulin (2.6-4.0) g/dL Albumin/Globulin Ratio (0.9-1.6) Lipase (73-393) U/L Urine Color YELLOW Urine Appearance CLEAR Urine pH 6.5 (5.0-8.0) Ur Specific [place] <= 1.005 (1.001-1.035) Urine Protein NEGATIVE (NEGATIVE) mg/dL Urine Glucose (UA) NEGATIVE (NEGATIVE) mg/dL Urine Ketones NEGATIVE (NEGATIVE) mg/dL Urine Occult Blood NEGATIVE (NEGATIVE) Urine Nitrite NEGATIVE (NEGATIVE) Urine Bilirubin NEGATIVE (NEGATIVE) Urine Urobilinogen 0.2 (<2.0) EU/dL Ur Leukocyte Esterase NEGATIVE (NEGATIVE) SARS-CoV-2 RNA (CARLA) (NEGATIVE) Meds: Medications Generic Name Dose Route Start Last Admin Trade Name Robertoq PRN Reason Stop Dose Admin Sodium Chloride 10 ml 03/18/21 02:49 03/18/21 07:38 Sodium Chloride 0.9% 10 Ml Syringe FLUSH 10 ml ASDIRECTED PRN Administration Keep Vein Open Sodium Chloride 2.5 ml 03/18/21 02:49 03/18/21 07:38 Sodium Chloride 0.9% 2.5 Ml Syringe FLUSH 2.5 ml ASDIRECTED PRN Administration Keep Vein Open Discontinued Medications Generic Name Dose Route Start Last Admin Trade Name Robertoq PRN Reason Stop Dose Admin Fentanyl 50 mcg 03/18/21 02:55 03/18/21 03:06 Fentanyl 50 Mcg/Ml Sdv IVPUSH 03/18/21 02:56 50 mcg ONETIME ONE Administration Fentanyl 50 mcg 03/18/21 04:00 03/18/21 04:18 Fentanyl 50 Mcg/Ml Sdv IVPUSH 03/18/21 04:01 50 mcg ONETIME ONE Administration Fentanyl 50 mcg 03/18/21 06:17 03/18/21 07:38 Fentanyl 50 Mcg/Ml Sdv IVPUSH 03/18/21 06:18 50 mcg ONETIME ONE Administration Sodium Chloride 1,000 mls @ 999 mls/hr 03/18/21 02:55 03/18/21 03:05 Normal Saline IV 03/18/21 03:55 999 mls/hr .Bolus ONE Administration Iopamidol 100 ml 03/18/21 03:53 03/18/21 04:28 Iopamidol 755 Mg/Ml 500 Ml Multipack Bottle IVPUSH 03/18/21 03:54 100 ml ONETIME ONE Administration Metoclopramide HCl 10 mg 03/18/21 07:40 Metoclopramide 10 Mg/2 Ml Sdv IVPUSH 03/18/21 07:41 ONETIME ONE Morphine Sulfate 4 mg 03/18/21 05:13 03/18/21 05:22 Morphine 4 Mg/Ml Vial IVPUSH 03/18/21 05:14 4 mg ONETIME ONE Administration Ondansetron HCl 4 mg 03/18/21 02:55 03/18/21 03:05 Ondansetron 4 Mg/2 Ml Sdv IVPUSH 03/18/21 02:56 4 mg ONETIME ONE Administration Ondansetron HCl 4 mg 03/18/21 05:13 03/18/21 05:22 Ondansetron 4 Mg/2 Ml Sdv IVPUSH 03/18/21 05:14 4 mg ONETIME ONE Administration - Re-Assessments/Exams Free Text/Narrative Re-Assessment/Exam: 03/18/21 07:57 Patient appears to have some respiratory distress but she says she is no worse than her baseline. She still in pain refuses an NG tube. Trying to arrange more expeditious transport to [place] where she has been accepted. Sepsis Event Note (ED) - Focused Exam Vital Signs: Vital Signs Temp Pulse Resp BP Pulse Ox 03/18/21 06:43 103 H 20 147/98 H 91 L 03/18/21 05:00 102 H 18 144/92 H 91 L 03/18/21 04:15 88 18 134/87 93 L 03/18/21 03:15 79 18 132/78 94 L 03/18/21 02:15 36.0 C L 81 15 160/98 H 94 L
[2021-03-18] MEDS ORDERED: Metoclopramide 10 MG/2 ML SDV IVPUSH ONE (07:40)
[2021-03-18 10:33] VITALS: BP 146/85; PULSE 98
== END 2021-03-18 11:37 ==
LOC: MW.ED 02:15
DX: K41.30 Unilateral femoral hernia, with obstruction, without gangrene, not specified as recurrent (principal); I11.0 Hypertensive heart disease with heart failure; I50.9 Heart failure, unspecified; J44.9 Chronic obstructive pulmonary disease, unspecified; E03.9 Hypothyroidism, unspecified; R00.0 Tachycardia, unspecified; Z88.5 Allergy status to narcotic agent; Z88.1 Allergy status to other antibiotic agents; Z79.899 Other long term (current) drug therapy; Z20.822 Contact with and (suspected) exposure to COVID-19
CPT/HCPCS: 36415; 74177; 80053; 81003; 83605; 83690; 83735; 85025; 93005; 96374; 96375; 96376; 99285; J2270; J2405; J2765; J3010; J7030; Q9967; U0002